=== PATIENT | female | born 1960 | race Caucasian/White ===

== ENCOUNTER 2021-11-26 18:48 | Emergency (ER) | payer MEDICARE, SELFPAY ==
--- NOTE | ~2021-11-26 | XR_ITS ---
EXAMINATION: XR CHEST CLINICAL INFORMATION: Chest pain COMPARISON: 11/26/2021 TECHNIQUE: Frontal view of the chest was obtained. FINDINGS: The lungs are clear with no focal consolidation. No evidence of pneumothorax, pulmonary edema, or pleural effusions. The cardiomediastinal silhouette is unremarkable. No acute osseous findings. XR/XR chest 1V IMPRESSION: No acute cardiopulmonary findings.
--- NOTE | ~2021-11-26 | XR_ITS ---
EXAMINATION: XR CHEST CLINICAL INFORMATION: Weakness. Cough. COMPARISON: Chest x-ray 07/22/2017 TECHNIQUE: Frontal view of the chest was obtained. 8:57 PM FINDINGS: No significant abnormality is noted involving the heart, lungs, mediastinum, bony thorax or soft tissues. XR/XR chest 1V IMPRESSION: Unremarkable examination.
[2021-11-26 19:43] VITALS: BP 114/70; PULSE 114; RESP 18; TEMP 36.5; O2SAT 95; BMI 17.2
[2021-11-26 20:15] LABS: COVID-19 Test Negative (Negative); IDNOW Serial# 9DD0AD1C
--- NOTE | 2021-11-26 20:37 | ECG_ITS ---
Test Reason : ABDOMINAL PAIN Blood Pressure : / mmHG Vent. Rate : 092 BPM Atrial Rate : 092 BPM P-R Int : 148 ms QRS Dur : 130 ms QT Int : 448 ms P-R-T Axes : 087 -74 169 degrees QTc Int : 554 ms Sinus rhythm with sinus arrhythmia with occasional Premature ventricular complexes Biatrial enlargement Left axis deviation Left bundle branch block Deep T wave inversions anterolateral leads-consider ischemia Abnormal ECG When compared with ECG of 23-JUL-2017 07:48, anteroseptal T wave inversions improved. T wave inversion more evident in Lateral leads Referred By: Generic ED Physician Electronically Signed By:Juan Richardson
[2021-11-26 21:45] LABS: MANUAL DIFF FLAG NO
[2021-11-26 21:47] LABS: Basophils Percent Auto 0.3 % (0-2); Eosinophils Percent Auto 0.1 % (0-4); Hematocrit 49.4 % (37.0-47.0); Imm Gran Abs Auto 0.03 X10*3/uL (0.00-0.03); Imm Gran Pct Auto 0.3 % (0.0-0.4); Lymphocytes Absolute Auto 2.1 X10*3/uL (1.2-4.9); Lymphocytes Percent Auto 17.9 % (20-40); Mean Corpuscular HGB Conc 34.4 g/dl (31.0-35.0); Mean Corpuscular Hemoglobin 31.7 pg (27.0-33.0); Mean Platelet Volume 11.6 fL (9.4-12.3); Monocytes Absolute Auto 0.8 X10*3/uL (0.1-1.2); Monocytes Percent Auto 6.8 % (2-11); Neutrophils Absolute Auto 8.7 x10*3/uL (2.0-8.3); Neutrophils Percent Auto 74.6 % (45-73); Platelet Count 228 X10*3/uL (160-400); Red Blood Count 5.37 X10*6/uL (4.20-5.50); Red Cell Distribution Width 12.9 % (11.0-16.0); White Blood Count 11.7 X10*3/uL (4.8-10.8)
[2021-11-26 22:02] LABS: Anion Gap 12 (12-20); Blood Urea Nitrogen 11 mg/dL (9-16); Carbon Dioxide 30 mmol/L (22-29); Chloride 102 mmol/L (96-108); Creatinine Clr Calc Pharmacy 40.4; Estimated Glomerular Filt Rate 55; Glucose Random 124 mg/dL (60-115); Potassium 4.2 mmol/L (3.3-5.1); Sodium 140 mmol/L (135-145)
[2021-11-26 22:16] LABS: Troponin-I High Sensitivity 697.3 ng/L (<3.5-17.0)
[2021-11-26 22:59] VITALS: BP 148/79; PULSE 101; RESP 20; O2SAT 100
[2021-11-26 23:01] VITALS: TEMP 36.7
[2021-11-26] MEDS: Aspirin 81 MG TAB.CHEW 324 MG PO (23:27)
[2021-11-26] MEDS: Nitroglycerin 0.4 MG TAB.SUBL SUBLINGUAL (23:27)
[2021-11-26 23:32] LABS: Alanine Aminotransferase 28 U/L (0-31); Albumin Level 4.7 g/dL (3.5-5.0); Alkaline Phosphatase 64 U/L (39-117); Aspartate Amino Transferase 37 U/L (5-31); Bilirubin Direct 0.4 mg/dL (0.0-0.5); Lipase 20 U/L (8-78); Total Protein 8.5 g/dL (6.5-8.0)
[2021-11-26] MEDS: 0.9 % Sodium Chloride 1,000 ML 125 ML IV (23:36)
[2021-11-26] MEDS: ondansetron HCL 4 MG/2 ML VIAL IVPUSH (23:36)
--- NOTE | 2021-11-26 23:46 | ED.ABDPAIN ---
HPI - Abdominal Pain General Chief Complaint: Abdominal Pain Stated Complaint: fever, body aches Time Seen by Provider: 11/26/21 22:46 Source: patient Mode of arrival: ambulatory Limitations: no limitations History of Present Illness HPI narrative: 61-year-old female who presents emergency department for evaluation of abdominal pain x2 days and upper respiratory like symptoms for 4 days. She states that for the past 4 days she has had a nonproductive cough and a runny nose. She states she has been blowing her nose frequently. She states that over the past 2 days she has had a constant epigastric abdominal pain which she describes as someone punching her in the got. She states the pain was 7/10 at its worst. She had no associated nausea, vomiting, shortness of breath. She denied any pain radiating to her back her down her arms. 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 She states she did have associated diaphoresis and had sweats on and off at night. The patient denied using any drugs such as crack or cocaine.The patient states that she may have a history of COPD but she is not certain. She denied diabetes, hypertension, hyperlipidemia, coronary disease or ulcers, GI bleed or GERD. Related Data Allergies Allergy/AdvReac Type Severity Reaction Status Date / Time Sulfa (Sulfonamide Allergy Intermediate SWELLING Unverified 08/14/20 16:00 Antibiotics) metronidazole [Flagyl] Allergy Unknown Verified 03/20/18 00:00 From FLAGYL Allergy Unknown SWELLING Uncoded 08/14/20 16:00 Review of Systems Review of Systems Yes all other systems are reviewed and are negative Physical Exam Vital Signs: Vital Signs: Last Vital Signs Temp 98.0 F 11/26/21 23:01 Pulse 78 11/27/21 00:58 Resp 13 11/27/21 00:00 BP 137/78 11/27/21 00:58 Pulse Ox 100 11/27/21 00:00 BMI result Body Mass Index 17.2 Const: Other: Awake, alert, female patient, she is very thin, she appears to be in distress secondary to her abdominal pain. HENMT: Head: Yes normal to inspection, Yes normocephalic and Yes atraumatic Ears: external ears normal General nose exam: Normal external nose present Face and sinus: Yes normal facial exam Mouth: Normal oral and palatal mucosa present Throat: Yes posterior oropharynx normal Eyes: General: appearance normal, both eyes and all related structures Pupils: Equal, round and reactive pupils present Neck: Neck: Yes normal visual inspection, Yes no lymphadenopathy, Yes trachea midline and Yes supple Chest: Chest palpation & inspection: normal inspection of the chest and normal palpation of entire chest wall Resp: Effort & Inspection: normal respiratory effort and able to speak in complete sentences Auscultation: clear to auscultation bilaterally Cardio: Rate: regular rate Rhythm: regular rhythm Heart sounds: S1 normal heart sound present, S2 normal heart sound present and no murmurs GI: Inspection: Yes normal to inspection Palpation (GI): Soft to palpation, Tenderness to palpation present (GI) in the epigastrum (Moderate) and no guarding Auscultation: normal bowel sounds : General: Yes no CVA tenderness Back/Spine/Pelvis: Back: no CVA tenderness Skin: General skin exam: no rashes or lesions noted Neuro: Cranial nerves: Yes CN's II-XII intact bilaterally and Yes Equal, round and reactive pupils present Cognition (Neuro): normal cognition Motor exam (neuro): 5/5 motor strength present throughout Extrem: General: Yes normal to inspection Psych: Appearance: grossly normal Speech and movement: Normal speech and movement present Affect: normal affect Attitude: cooperative Thought process: Normal thought process present Thought content: Normal thought content present Course Course Course Narrative: 61-year-old female who presents emergency department for evaluation of upper respiratory like illness x4 days with constant, epigastric pain x2 days associated with diaphoresis and night sweats. Initial vital signs revealed tachycardia with a pulse of 114 otherwise were unremarkable. Physical examination did reveal epigastric tenderness otherwise was unremarkable. Laboratory evaluation: [place] [address], elevated H&H of 17 and 49.4, glucose was elevated 124, AST was elevated 37, initial high sensitivity troponin I at 9:37 p.m. was 697.3. chest x-ray revealed no acute abnormality. The patient's presentation is atypical for coronary artery disease however she does have an elevated Troponin and was having constant epigastric pain. She was given aspirin 324 mg orally and nitroglycerin 1 tablet sublingually with significant improvement of her pain. She states that her pain is now 1/10. She was ordered to get nitro paste 1 in to her chest wall and she will have a repeat troponin at 12:30 a.m. 0148: Patient states she is feeling better with the above treatment. Her pain is 3/10. Patient still has [id number] epigastric tenderness. The patient's repeat 3 hour high sensitivity troponin was 543. This did not increased by adult of 50% suggesting that she has a chronically elevated troponin. The patient was ordered to get Maalox 30 cc orally, viscous lidocaine 10 cc orally and 10 cc orally. The patient will be started on Prilosec 20 mg once a day for 1 month. She was given printed and verbal instructions on gastritis and discharged home. MDM - Abdominal Pain Lab Data Result diagrams: 11/26/21 21:37 11/26/21 21:37 Labs: Lab Results 11/26/21 11/26/21 11/26/21 Range/Units 19:53 21:37 21:37 WBC 11.7 H (4.8-10.8) X10*3/uL RBC 5.37 (4.20-5.50) X10*6/uL Hgb 17.0 H (12.0-16.0) g/dl Hct 49.4 H (37.0-47.0) % MCV 92.0 (80.0-98.0) fL MCH 31.7 (27.0-33.0) pg MCHC 34.4 (31.0-35.0) g/dl RDW 12.9 (11.0-16.0) % Plt Count 228 (160-400) X10*3/uL MPV 11.6 (9.4-12.3) fL Immature Gran % (Auto) 0.3 (0.0-0.4) % Neut % (Auto) 74.6 H (45-73) % Lymph % (Auto) 17.9 L (20-40) % [place] % (Auto) 6.8 (2-11) % Eos % (Auto) 0.1 (0-4) % Baso % (Auto) 0.3 (0-2) % Lymph # (Auto) 2.1 (1.2-4.9) X10*3/uL [place] # (Auto) 0.8 (0.1-1.2) X10*3/uL Eos # (Auto) 0.0 (0.0-0.4) X10*3/uL Baso # (Auto) 0.0 (0.0-0.2) X10*3/uL Abs Immat Gran (auto) 0.03 (0.00-0.03) X10*3/uL Absolute Neuts (auto) 8.7 H (2.0-8.3) x10*3/uL Absolute Nucleated RBC 0.000 (0.0-0.012) X10*3/uL Nucleated RBC % (auto) 0.0 (0.0-0.2) /100WBC Sodium 140 (135-145) mmol/L Potassium 4.2 (3.3-5.1) mmol/L Chloride 102 (96-108) mmol/L Carbon Dioxide 30 H (22-29) mmol/L Anion Gap 12 (12-20) BUN 11 (9-16) mg/dL Creatinine 1.02 (0.5-1.4) mg/dL Estim Creat Clear Calc 40.4 Estimated GFR 55 Random Glucose 124 H (60-115) mg/dL Calcium 10.0 (8.4-10.2) mg/dL Total Bilirubin 1.0 (0.0-1.0) mg/dL Direct Bilirubin 0.4 (0.0-0.5) mg/dL AST 37 H (5-31) U/L ALT 28 (0-31) U/L Alkaline Phosphatase 64 (39-117) U/L Troponin I High Sens (<3.5-17.0) ng/L Total Protein 8.5 H (6.5-8.0) g/dL Albumin 4.7 (3.5-5.0) g/dL Lipase 20 (8-78) U/L COVID-19 (KARIE) Negative (Negative) COVID-19 Clin Com See Note 11/26/21 11/26/21 11/27/21 Range/Units 21:37 22:58 00:37 WBC (4.8-10.8) X10*3/uL RBC (4.20-5.50) X10*6/uL Hgb (12.0-16.0) g/dl Hct (37.0-47.0) % MCV (80.0-98.0) fL MCH (27.0-33.0) pg MCHC (31.0-35.0) g/dl RDW (11.0-16.0) % Plt Count (160-400) X10*3/uL MPV (9.4-12.3) fL Immature Gran % (Auto) (0.0-0.4) % Neut % (Auto) (45-73) % Lymph % (Auto) (20-40) % [place] % (Auto) (2-11) % Eos % (Auto) (0-4) % Baso % (Auto) (0-2) % Lymph # (Auto) (1.2-4.9) X10*3/uL [place] # (Auto) (0.1-1.2) X10*3/uL Eos # (Auto) (0.0-0.4) X10*3/uL Baso # (Auto) (0.0-0.2) X10*3/uL Abs Immat Gran (auto) (0.00-0.03) X10*3/uL Absolute Neuts (auto) (2.0-8.3) x10*3/uL Absolute Nucleated RBC (0.0-0.012) X10*3/uL Nucleated RBC % (auto) (0.0-0.2) /100WBC Sodium (135-145) mmol/L Potassium (3.3-5.1) mmol/L Chloride (96-108) mmol/L Carbon Dioxide (22-29) mmol/L Anion Gap (12-20) BUN (9-16) mg/dL Creatinine (0.5-1.4) mg/dL Estim Creat Clear Calc Estimated GFR Random Glucose (60-115) mg/dL Calcium (8.4-10.2) mg/dL Total Bilirubin (0.0-1.0) mg/dL Direct Bilirubin (0.0-0.5) mg/dL AST (5-31) U/L ALT (0-31) U/L Alkaline Phosphatase (39-117) U/L Troponin I High Sens 697.3 H* 543.8 H* (<3.5-17.0) ng/L Total Protein (6.5-8.0) g/dL Albumin (3.5-5.0) g/dL Lipase (8-78) U/L COVID-19 (KARIE) Negative (Negative) COVID-19 Clin Com See Note ECG Data Attestation: I personally reviewed and interpreted this ECG as follows: Interpretation: 2244: Sinus rhythm with sinus arrhythmia, occasional PVC, normal [place] interval, prolonged QRS and QTC interval, the patient has a left bundle branch block. Discharge Plan Discharge Clinical Impression: Gastritis Patient Disposition: Home, Self-Care Instructions: Gastritis (ED) Additional Instructions: At this time, I believe that your pain is due to inflammation of your stomach (gastritis) most likely caused by too much acid in your stomach. I am prescribing Prilosec (omeprazole) 20 mg pills, take 1 pill once a day for 1 month. This is a medicine that shuts off your acid production and a larger stomach heal. Take Tylenol (acetaminophen) 500 mg pills, 2 pills every 4 to 6 hours as needed for pain. Follow-up with your doctor in 2 days. Please return to the emergency department if your symptoms get worse or if you develop any symptoms that are concerning to you. [facility] Past Medical History [facility] Narrative: Past medical history: None. Social history: The patient smokes 1 pack of cigarettes per day times many years. She denies alcohol use. She denies crack cocaine or cocaine use. She does smoke marijuana. Social History Social History Alcohol intake: never Patient Tobacco Use Status: Current everyday Tobacco user Use of substances other than those prescribed or required for medical reasons: Yes Substance Use Type: Marijuana Advance Directives: No Advance Directives Information Provided: No Patient : No
[2021-11-26 23:58] LABS: COVID-19 Test Negative (Negative)
[2021-11-27] VITALS: BP 137/78; PULSE 78; RESP 13; O2SAT 100
[2021-11-27 00:58] VITALS: BP 137/78; PULSE 78
[2021-11-27] MEDS: Nitroglycerin 2 % Oint 1 GM Packet 1 INCH TRANSDERMA (00:58)
[2021-11-27 01:11] LABS: Troponin-I High Sensitivity 543.8 ng/L (<3.5-17.0)
--- NOTE | 2021-11-27 01:35 | PC.NURSE ---
PTS ' CONTINUES TO CALL AND [facility] STAFF, ON THE LAST PHONE CALL WHEN IT WAS STATED PT WAS ASLEEP AND THERE WAS NO FURTHER INFORMATION TO BE GIVEN AT THIS TIME. [employer] SATED TO THIS RN YOU MOTHERFUCKERS CAN SUCK MY OLE THIS RN WAS FORCED TO END THE CALL D/T THE MAN PERSISTENTLY YELLING, SWEARING, SLURRING HIS WORDS AND UNABLE TO HOLD A CONVERSATION AT THIS TIME
[2021-11-27] MEDS: Lidocaine HCl Viscous 2 % 15 ML SOLUTION 10 ML PO (02:03)
[2021-11-27] MEDS: PHENobarb/Hyoscy/Atropine/Scop 10 ML ELIXIR PO (02:03)
[2021-11-27] MEDS: Magnesium Hydrox/Alum Hydrox 30 ML ORAL.SUSP PO (02:03)
[2021-11-27 03:11] LABS: Appearance Urine CLEAR; Color Urine YELLOW; Glucose Urine UA NEG (NEG); Leukocyte Esterase Urine NEG (NEG); Nitrite Urine NEG (NEG); Specific Gravity - Urine 1.015 (1.005-1.025); UACC Culture Trigger NO; Urine Blood NEG (NEG); Urine Ketones 15 MG/DL (NEG); Urine Protein 1+ MG/DL (NEG-TRACE)
[2021-11-27 03:20] LABS: Hyaline Casts Urine 0-2 /LPF; Mucus Urine 2+ /LPF; Renal Epithelial Cells Urine TRACE /LPF; Squamous Epithelial Cell Urine 1+ /LPF
== END 2021-11-27 04:03 | disposition home or self-care (01) ==
PROVIDERS: Emergency Provider Emergency Medicine Emergency Medical Services
DX: K29.70 Gastritis, unspecified, without bleeding (principal); R10.9 Unspecified abdominal pain; R50.9 Fever, unspecified; M79.10 Myalgia, unspecified site; Z20.822 Contact with and (suspected) exposure to COVID-19; Z79.899 Other long term (current) drug therapy
CPT/HCPCS: 36415; 71045; 80048; 80076; 81001; 83690; 84484; 85025; 87635; 93005; 96361; 96374; 99285; J2405

== ENCOUNTER 2022-06-11 16:21 | Inpatient (IN) | payer MEDICARE, SELFPAY ==
--- NOTE | ~2022-06-11 | CT_ITS ---
EXAMINATION: NONCONTRAST HEAD CT NONCONTRAST MAXILLOFACIAL CT NONCONTRAST CERVICAL SPINE CT INDICATION INFORMATION: Fall with head strike and neck pain. COMPARISON:, CT cervical spine 07/05/[address] 09/26/2018 TECHNIQUE: Separate noncontrast CT examinations of the head, maxillofacial bones, and cervical spine were performed. Coronal and sagittal images were created for each examination at the technologist workstation. This CT examination was performed using dose optimization techniques as appropriate, variously including the following: *Automated exposure control *Adjustment of mA and/or kV according to patient size (this includes techniques or standardized protocols for targeted exams where dose is matched to indication/reason for exam; i.e. extremities or head) *Use of iterative reconstruction technique DLP: 1248 mGy-cm FINDINGS: HEAD: No intra or extra-axial fluid collection, hemorrhage, or mass. No midline shift or herniation. Basal cisterns are patent. Parra-white matter differentiation is maintained. No territorial encephalomalacia.. No hydrocephalus. No significant volume loss. There is no abnormal attenuation within the brain parenchyma. No acute soft tissue abnormality. No calvarial fracture. The mastoid air cells are well aerated. MAXILLOFACIAL: No acute facial bone fractures are seen. Minimal lobulated mucosal thickening of the floor the left maxillary antrum. Paranasal sinuses otherwise normally aerated. The mandibular heads are normally positioned in the glenoid fossa. Mild left TMJ osteoarthritis. The orbits demonstrate a normal appearance bilaterally. The globes are intact. No evidence of retrobulbar hemorrhage. CERVICAL SPINE: Alignment:Slight reversal of the normal cervical lordosis. No subluxation. Vertebra:No acute fracture. No prevertebral soft tissue swelling. Degenerative disc disease:Moderate cervical spondylosis at C5-C6 and C6-C7. Other findings:No cervical lymphadenopathy. Visualized thyroid gland is unremarkable. Visualized lung apices are clear. Prior resection of the left first rib. CT/CT cervical spine wo con IMPRESSION: 1. No intracranial hemorrhage or calvarial fracture. 2. No acute facial bone fracture. 3. No traumatic subluxation or acute cervical spine fracture.
--- NOTE | ~2022-06-11 | XR_ITS ---
EXAMINATION: XR hand wrist LT CLINICAL INFORMATION: Reason for Exam Fall, Pain COMPARISON: Left wrist radiographs 06/24/2010 TECHNIQUE: 3 views left hand FINDINGS: Assessment is slightly limited due to positioning and resultant osseous overlap. No acute fracture or dislocation is identified. Joint spaces are maintained. Mild osteophyte formation/degenerative change at the second DIP joint. XR/XR hand wrist LT IMPRESSION: No acute fracture or dislocation allowing for limitation, as above.
--- NOTE | ~2022-06-11 | XR_ITS ---
EXAMINATION: XR FOREARM, LEFT CLINICAL INFORMATION: Fall COMPARISON: None TECHNIQUE: AP and lateral views of the left forearm were obtained. FINDINGS: The bones and soft tissues are normal. No fracture. Imaged portions of the elbow and wrist are unremarkable. XR/XR forearm LT 2V IMPRESSION: No fracture.
--- NOTE | ~2022-06-11 | CT_ITS ---
EXAMINATION: CT CHEST, ABDOMEN AND PELVIS WITH CONTRAST CT THORACIC AND LUMBAR SPINE WITHOUT CONTRAST (REFORMATS) CLINICAL INFORMATION: Reason for Exam Trauma, Fall . COMPARISON: No pertinent prior studies are available for comparison TECHNIQUE: Multidetector volumetric imaging was performed from the thoracic inlet through the pubic symphysis following the administration of: Oral contrast: No Intravenous contrast: 85 mL Omnipaque 350 No contrast reaction reported Sagittal and coronal reformatted images were obtained on the technologist workstation. This CT examination was performed using dose optimization techniques as appropriate, variously including the following: *Automated exposure control *Adjustment of mA and/or kV according to patient size (this includes techniques or standardized protocols for targeted exams where dose is matched to indication/reason for exam; i.e. extremities or head) *Use of iterative reconstruction technique DLP: 613 mGy-cm FINDINGS: CHEST: Lungs: Extensive respiratory motion artifact. No airspace consolidation. No pneumothorax. No appreciable pulmonary nodule or mass identified. Airways: Central airways are clear. Pleura and pericardium: No pleural or pericardial effusions. Heart and vascular structures: No cardiomegaly. No thoracic aortic aneurysm or dissection flap. Normal caliber central pulmonary trunk. Lymph nodes:No mediastinal, hilar, or axillary lymphadenopathy. Chest Wall: No chest wall mass. ABDOMEN/PELVIS: Assessment limited by motion artifact. Liver: Normal size and attenuation. No liver lesions. No liver laceration or subcapsular hematoma. Gallbladder and bile ducts: No calcified gallstones, mural thickening, or pericholecystic fluid/inflammatory change allowing for motion artifact. No biliary ductal dilation. Pancreas: No pancreatic lesion, ductal dilation, or peripancreatic inflammatory change. Spleen: Normal size. No splenic lesion. No splenic laceration or subcapsular hematoma allowing for motion. Adrenal Glands: Unremarkable. No adrenal nodule or hemorrhage. Kidneys and Ureters: Symmetric nephrograms. No hydronephrosis. No renal laceration or subcapsular hematoma. No renal cyst or mass identified. Vasculature:No abdominal aortic aneurysm. No aortic dissection flap. Moderate mixed calcified noncalcified plaque in the lower abdominal aorta. Lymph nodes:No retroperitoneal or mesenteric lymphadenopathy. Gastrointestinal Tract: No dilated bowel loops or bowel wall thickening. Peritoneum:Trace low-density free pelvic fluid. No intra-abdominal free air. Abdominal wall:No hernia. Bladder: Unremarkable. Pelvic Viscera: Status post hysterectomy. Bones: No acute fracture identified allowing for motion artifact. This degenerative changes in the spine most advanced at L5-S1 and within the lower cervical spine. CT/CT abdomen pelvis w con IMPRESSION: 1. Exam limited by patient motion artifact. Allowing for this limitation. No appreciable acute intrathoracic injury. No acute solid visceral injury. No intra-abdominal free air. 2. Trace low-density free pelvic fluid, likely physiologic. 3. No acute fracture identified.
--- NOTE | ~2022-06-11 | US_ITS ---
EXAMINATION: ULTRASOUND ARTERIAL DUPLEX BILATERAL UPPER EXTREMITY CLINICAL INFORMATION: Pain COMPARISON: None TECHNIQUE: Doppler, color and grayscale evaluation of the arteries of the bilateral upper extremities FINDINGS: There is no evidence of atherosclerotic disease. No vessel wall thickening or irregularity suggest vasculitis is seen. No filling defect, thrombus or visible stenosis is appreciated. Peak systolic velocities in the common subclavian axillary brachial and ulnar and radial arteries are normal throughout the bilateral upper extremities. Waveforms are normal with triphasic waveforms. There is an arrhythmia. US/US arterial duplex UE BI IMPRESSION: Arrhythmia otherwise normal arterial extremity ultrasound exam.
[2022-06-11 16:29] VITALS: BP 200/90; PULSE 44; PULSE 97; RESP 22; TEMP 36.6; O2SAT 97; O2SAT 99; BMI 15.9
--- NOTE | 2022-06-11 16:29 | ECG_ITS ---
Test Reason : FALL Blood Pressure : / mmHG Vent. Rate : 083 BPM Atrial Rate : 040 BPM P-R Int : 160 ms QRS Dur : 098 ms QT Int : 406 ms P-R-T Axes : 084 072 -81 degrees QTc Int : 477 ms Normal sinus rhythm with frequent Premature ventricular complexes in a pattern of bigeminy Left bundle branch block Abnormal ECG When compared with ECG of 26-NOV-2021 22:44, PVC with bigeminal pattern present Referred By: Rachel Blanco Electronically Signed By:CRUZ SOLANO MD
--- NOTE | 2022-06-11 16:36 | ED_ITS ---
HPI - Trauma General Chief Complaint: Fall Stated Complaint: FALL W/HEADSTRIKE AND HAND PAIN PER EMS Time Seen by Provider: 06/11/22 16:24 Source: patient Mode of arrival: EMS History of Present Illness HPI narrative: 62-year-old female brought in by EMS for a traumatic fall in an alley, patient states that she is having significant pain to bilateral hands. She denies any difficulty breathing, chest pain/palpitations, or pain elsewhere. She denies drinking any alcohol today states that she is on methadone and denies any IV injection drug use but does smoke marijuana. Related Data Previous Rx's Medication Instructions Recorded omeprazole 20 mg capsule,delayed 20 mg PO DAILY 30 days #30 caps 11/27/21 release Allergies Allergy/AdvReac Type Severity Reaction Status Date / Time Sulfa (Sulfonamide Allergy Intermediate SWELLING Unverified 08/14/20 16:00 Antibiotics) metronidazole [Flagyl] Allergy Unknown Verified 03/20/18 00:00 From FLAGYL Allergy Unknown SWELLING Uncoded 08/14/20 16:00 Review of Systems Review of Systems: Pertinent positives and negatives as stated in the HPI 10 point review of systems is otherwise negative. [facility] Past Medical History Source: nursing notes reviewed Social History Social History Alcohol intake: never Patient Tobacco Use Status: Current everyday Tobacco user Substance Use Type: Marijuana Advance Directives: No Advance Directives Information Provided: No Physical Exam Vital Signs: Vital Signs: Last Vital Signs Temp 97.9 F 06/11/22 16:29 Pulse 44 L 06/11/22 16:29 Resp 22 H 06/11/22 16:29 Pulse Ox 97 06/11/22 16:29 O2 Del Method 06/11/22 16:29 BMI result Body Mass Index 15.9 Blood Thinners: None PRIMARY SURVEY A: Airway intact B: Bilateral, symmetrical breath sounds C: Bilateral DP/PT/femoral/radial palpable pulses symmetrical, ABD soft/ non-distended, PELVIS: stable/non-tender BP: D: GCS-15, motor and sensory grossly intact, FAST not performed E: No back abrasions, no cervical/thoracic/lumbar vertebral tenderness/step-off, ALYSSA- not performed SECONDARY SURVEY HEAD: NC/AT no laceration/no contusions noted; EARS: no hemotympanum; EYES: 2mm PERRLA, EOMI NOSE: no deformity, wnl, no septal hematoma; OROPHARYNX: able to open mouth and tongue is midline without laceration, poor dentition FACE: with abrasion between her eyebrows, lacerations, contusions, or ttp NECK: c-collar, no cervical spine tenderness; CHEST WALL/THORAX: no clavicle deformity or ttp, no sternum or rib deformity, no crepitus and no ttp RUE: fROM at shoulder/elbow/wrist and neurovascular intact, no deformity, no abrasions/lacerations, cap refill <3s, patient complained of pain in her hands LUE: fROM at shoulder/elbow/wrist and neurovascular intact, no deformity, no abrasions/lacerations, cap refill <3s, patient complained of pain in her hands ABD: soft, non-tender, non-distended PELVIS: stable, non-tender : external genitalia grossly within normal limits RLE: fROM at hip/knee/ankle neurovascular intact LLE: fROM at hip/knee/ankle neurovascular intact ROS: 10 point review of systems has been completed. Please refer to HPI for pertinent negative and positives. A/P: 62-year-old female with history and clinical presentation consistent with traumatic fall - Labs (CBC, CMP, Troponin, PT/INR, PTT) - CT: head, c-spine, Thorax w/ contrast and T-spine recon, Abd/pelvis w/ contrast and L-spine recon - XR < bilateral forearm> - Type and Screen - Urinalysis, Urine Tox - Blood Alcohol - Tetanus - Consult <> Course Course Course Narrative: 1950: X-rays negative for acute fracture/dislocation. 2019: Review of CT scans are negative for acute pathology. Both of patient's wrist were wrapped with Sam wraps with patient endorsing that her hands feel better, pulses are palpable, hands are warm, capillary refill is less than 3 seconds. It does sound to be neuropathic pain. Concerns are raised for patient's bigeminy in conjunction with syncopal episode. I discussed the case with the inpatient hospitalist who accepts admission. Patient received Tdap. MDM - Trauma Lab Data Result diagrams: 06/11/22 16:43 06/11/22 16:43 Labs: Lab Results 06/11/22 06/11/22 06/11/22 Range/Units 16:43 16:43 16:43 WBC 10.3 (4.8-10.8) X10*3/uL RBC 4.32 (4.20-5.50) X10*6/uL Hgb 13.9 (12.0-16.0) g/dl Hct 38.9 D (37.0-47.0) % MCV 90.0 (80.0-98.0) fL MCH 32.2 (27.0-33.0) pg MCHC 35.7 H (31.0-35.0) g/dl RDW 12.9 (11.0-16.0) % Plt Count 212 (160-400) X10*3/uL MPV 11.2 (9.4-12.3) fL Immature Gran % (Auto) 0.2 (0.0-0.4) % Neut % (Auto) 48.5 (45-73) % Lymph % (Auto) 37.8 (20-40) % [place] % (Auto) 9.1 (2-11) % Eos % (Auto) 3.9 (0-4) % Baso % (Auto) 0.5 (0-2) % Lymph # (Auto) 3.9 (1.2-4.9) X10*3/uL [place] # (Auto) 0.9 (0.1-1.2) X10*3/uL Eos # (Auto) 0.4 (0.0-0.4) X10*3/uL Baso # (Auto) 0.1 (0.0-0.2) X10*3/uL Abs Immat Gran (auto) 0.02 (0.00-0.03) X10*3/uL Absolute Neuts (auto) 5.0 (2.0-8.3) x10*3/uL Absolute Nucleated RBC 0.000 (0.0-0.012) X10*3/uL Nucleated RBC % (auto) 0.0 (0.0-0.2) /100WBC PT 10.8 (10.0-13.1) SEC INR 0.9 (0.9-1.1) Sodium 130 L (135-145) mmol/L Potassium 4.0 (3.3-5.1) mmol/L Chloride 97 (96-108) mmol/L Carbon Dioxide 23 (22-29) mmol/L Anion Gap 14 (12-20) BUN 5 L D (9-16) mg/dL Creatinine 0.78 (0.5-1.4) mg/dL Estim Creat Clear Calc 48.3 Estimated GFR > 60 Random Glucose 126 H (60-115) mg/dL Calcium 8.8 D (8.4-10.2) mg/dL Total Bilirubin 0.6 (0.0-1.0) mg/dL AST 39 H (5-31) U/L ALT 30 (0-31) U/L Alkaline Phosphatase 57 (39-117) U/L Total Protein 7.1 (6.5-8.0) g/dL Albumin 4.4 (3.5-5.0) g/dL Ethyl Alcohol < 10 mg/dL ECG Data Attestation: I personally reviewed and interpreted this ECG as follows: Prior ECG tracings: available for review Interpretation: Bigeminy, HR-83, OR/QRS/QTC are within normal limits. Critical Care Time Critical Care Time Critical Care Time: Yes Total Critical Care Time: 30 Attestation: I personally attest to this time spent taking care of the patient. Discharge Plan Discharge Clinical Impression: Syncope, Trauma, History of thoracic outlet syndrome, Neuropathic pain Patient Disposition: Admitted As Inpatient
[2022-06-11] MEDS: fentaNYL citrate/PF 100 MCG/2 ML VIAL 25 MCG IVPUSH (16:46)
[2022-06-11 16:47] LABS: MANUAL DIFF FLAG NO
[2022-06-11] MEDS: hydrALAZINE HCl 20 MG/ML VIAL 5 MG IVPUSH (16:47)
[2022-06-11 16:51] LABS: Basophils Absolute Auto 0.1 X10*3/uL (0.0-0.2); Basophils Percent Auto 0.5 % (0-2); Eosinophils Absolute Auto 0.4 X10*3/uL (0.0-0.4); Eosinophils Percent Auto 3.9 % (0-4); Hematocrit 38.9 % (37.0-47.0); Hemoglobin 13.9 g/dl (12.0-16.0); Imm Gran Abs Auto 0.02 X10*3/uL (0.00-0.03); Imm Gran Pct Auto 0.2 % (0.0-0.4); Lymphocytes Absolute Auto 3.9 X10*3/uL (1.2-4.9); Lymphocytes Percent Auto 37.8 % (20-40); Mean Corpuscular HGB Conc 35.7 g/dl (31.0-35.0); Mean Corpuscular Hemoglobin 32.2 pg (27.0-33.0); Mean Platelet Volume 11.2 fL (9.4-12.3); Monocytes Absolute Auto 0.9 X10*3/uL (0.1-1.2); Monocytes Percent Auto 9.1 % (2-11); Neutrophils Percent Auto 48.5 % (45-73); Platelet Count 212 X10*3/uL (160-400); Red Blood Count 4.32 X10*6/uL (4.20-5.50); Red Cell Distribution Width 12.9 % (11.0-16.0); White Blood Count 10.3 X10*3/uL (4.8-10.8)
[2022-06-11 16:58] LABS: INTERNATIONAL NORM RATIO 0.9 (0.9-1.1); Prothrombin Time 10.8 SEC (10.0-13.1)
[2022-06-11 17:08] LABS: Alanine Aminotransferase 30 U/L (0-31); Albumin Level 4.4 g/dL (3.5-5.0); Alkaline Phosphatase 57 U/L (39-117); Anion Gap 14 (12-20); Aspartate Amino Transferase 39 U/L (5-31); Bilirubin Total 0.6 mg/dL (0.0-1.0); Blood Urea Nitrogen 5 mg/dL (9-16); Calcium 8.8 mg/dL (8.4-10.2); Carbon Dioxide 23 mmol/L (22-29); Chloride 97 mmol/L (96-108); Creatinine Clr Calc Pharmacy 48.3; Estimated Glomerular Filt Rate > 60; Ethanol < 10 mg/dL; Glucose Random 126 mg/dL (60-115); Sodium 130 mmol/L (135-145); Total Protein 7.1 g/dL (6.5-8.0)
[2022-06-11] MEDS: HYDROmorphone HCl 0.5 MG/0.5 ML SYRINGE IVPUSH (17:44)
[2022-06-11] MEDS: Magnesium Sulfate/H2O 2 GM/50 ML PIGGYBACK IV (17:44)
[2022-06-11] MEDS: iohexoL 350 MG/ML 100 ML INFUS..BTL IV (18:27)
[2022-06-11 20:48] LABS: Appearance Urine CLEAR; Color Urine STRAW; Glucose Urine UA NEG (NEG); Leukocyte Esterase Urine NEG (NEG); Nitrite Urine NEG (NEG); PH 6.5 (5.0-8.0); Specific Gravity - Urine <= 1.005 (1.005-1.025); UACC Culture Trigger NO; Urine Blood TRACE (NEG); Urine Ketones NEG (NEG); Urine Protein NEG (NEG-TRACE)
[2022-06-11 20:53] LABS: WBC Urine 0 /HPF (0-4)
[2022-06-11 20:58] LABS: Troponin-I High Sensitivity 4.7 ng/L (<3.5-17.0)
[2022-06-11 21:02] LABS: Amphetamine Screen Urine Not Detected (Not Detect); Barbiturates, Urine Not Detected (Not Detect); Benzodiazepines Screen Urine Not Detected (Not Detect); Cannabinoid Screen Urine POSITIVE (Not Detect); Cocaine Screen Urine Not Detected (Not Detect); Fentanyl, urine POSITIVE (Not Detect); Opiate Screen Urine POSITIVE (Not Detect); Phencyclidine Screen Urine Not Detected (Not Detect)
[2022-06-11 21:03] LABS: COVID-19 Test Negative (Negative); IDNOW Serial# 55D5AD1C
--- NOTE | 2022-06-11 21:03 | PHA.MEDREC ---
Pharmacy Consult ? Medication Reconciliation Pharmacy has completed the medication reconciliation.
[2022-06-11] MEDS: Diphth,Pertus(ACell),Tet Adult 0.5 ML SYRINGE IM (21:13)
[2022-06-11] MEDS: oxyCODONE HCl Immed Release 5 MG TABLET PO (21:13)
--- NOTE | 2022-06-11 22:27 | P.HPHOSP_ITS ---
History of Present Illness Date of Service: 06/11/22 Chief Complaint: syncope 62-year-old female with past medical history of opioid use disorder on methadone presents to the hospital after a fall. Patient reports that she tripped on a rock and fell face forward hitting her head. She does report that she loss co nsciousness but is unclear if she lost consciousness before falling or after falling. She reports that she now has severe unbearable pain in her hands bilaterally. She denies injecting any type of drugs in her hands, she reports severe shooting burning pain that is intermittent in her hands bilaterally. She feels that her hands skin is being scraped off. She denies any fever no chills, no chest pain, no abdominal pain, no nausea or vomiting, no palpitations, no shortness of breath. No urinary symptoms and no lower extremity edema. On arrival to the ED patient hemodynamically stable no significant abnormal vitals Labs are significant for WBC count of 10.3, hemoglobin of 13.9, hematocrit of 38.9, sodium of 130, labs otherwise unremarkable, UDS is positive for opioids as well as fentanyl and marijuana Although some of the images do have motion artifact but imaging including head C T, abdominal pelvic CT, chest CT, face CT, cervical spine CT, as well as hand wrist x-ray and forearm x-ray are negative for any acute abnormality. Patient is in extreme excruciating pain bilateral hands not responding to p.o. pain meds, therefore she will be admitted for further management. Review of Systems Review of Systems: Yes all other systems are reviewed and are negative [facility] Medical History History of thoracic outlet syndrome Trigeminal neuralgia Family History (Updated 06/12/22 @ 00:10 by Zeus Lua MD) Other No family history of coronary artery disease Surgical History History of hysterectomy Social History Alcohol intake: never Patient Tobacco Use Status: Current everyday Tobacco user Substance Use Type: Marijuana Advance Directives: No Advance Directives Information Provided: No Meds Allergies Allergy/AdvReac Type Severity Reaction Status Date / Time Sulfa (Sulfonamide Allergy Intermediate SWELLING Unverified 08/14/20 16:00 Antibiotics) metronidazole [Flagyl] Allergy Unknown Verified 03/20/18 00:00 From FLAGYL Allergy Unknown SWELLING Uncoded 08/14/20 16:00 Active Medications: Current Medications Pharmacy Consult (Consult Rx Perform Med Rec) 1 each MISCELLANE ONCE PRN PRN Reason: Consult order Home Medications Medication Instructions Recorded Confirmed Last Taken Type methadone 10 mg/mL oral 65 mg PO DAILY 06/11/22 06/11/22 06/11/22 History concentrate (Methadone Intensol) Physical Exam Vital Signs and Narrative: Vital Signs: Last Vital Signs Temp 97.9 F 06/11/22 16:29 Pulse 44 L 06/11/22 16:29 Resp 22 H 06/11/22 16:29 Pulse Ox 97 06/11/22 16:29 O2 Del Method 06/11/22 16:29 BMI result Body Mass Index 15.9 Const: General: cooperative and no acute distress Orientation/consciousness: patient oriented x3 Eyes: General: appearance normal, both eyes and all related structures Resp: Effort & Inspection: normal respiratory effort Auscultation: clear to auscultation bilaterally Cardio: Rate: regular rate Rhythm: regular rhythm GI: Palpation (GI): Soft to palpation Auscultation: normal bowel sounds Skin: General skin exam: no rashes or lesions noted Neuro: General: patient oriented x3 Cognition (Neuro): normal cognition Extrem: Other: For both hands examined, appear normal in appearance, no erythema, no edema, no warmth, patient wound even let me touch thumb without screaming in pain, she is holding them out now moving them as she says that even moving them causes her severe pain. General: Yes normal to inspection and Yes no pedal edema Results Labs CBC and Chem 7: 06/11/22 16:43 06/11/22 16:43 Labs: Laboratory Results - last 24 hr 06/11/22 06/11/22 06/11/22 16:43 16:43 16:43 MCV 90.0 MCH 32.2 MCHC 35.7 H RDW 12.9 Plt Count 212 MPV 11.2 Immature Gran % (Auto) 0.2 Neut % (Auto) 48.5 Lymph % (Auto) 37.8 [place] % (Auto) 9.1 Eos % (Auto) 3.9 Baso % (Auto) 0.5 Lymph # (Auto) 3.9 [place] # (Auto) 0.9 Eos # (Auto) 0.4 Baso # (Auto) 0.1 Abs Immat Gran (auto) 0.02 Absolute Neuts (auto) 5.0 Absolute Nucleated RBC 0.000 Nucleated RBC % (auto) 0.0 PT 10.8 INR 0.9 Anion Gap 14 Estim Creat Clear Calc 48.3 Estimated GFR > 60 Random Glucose 126 H Calcium 8.8 D Total Bilirubin 0.6 AST 39 H ALT 30 Alkaline Phosphatase 57 Troponin I High Sens Total Protein 7.1 Albumin 4.4 Urine Color Urine Appearance Urine pH Ur Specific [place] Urine Protein Urine Glucose (UA) Urine Ketones Urine Blood Urine Nitrite Ur Leukocyte Esterase Urine RBC Urine WBC Ur Squamous Epith Cells Urine Bacteria Urine Opiates Screen Urine Fentanyl Screen Ur Barbiturates Screen Ur Phencyclidine Scrn Ur Amphetamines Screen U Benzodiazepines Scrn Urine Cocaine Screen U Marijuana (THC) Screen Ethyl Alcohol < 10 COVID-19 (KARIE) COVID-19 [employer] Com 06/11/22 06/11/22 06/11/22 16:43 20:37 20:39 MCV MCH MCHC RDW Plt Count MPV Immature Gran % (Auto) Neut % (Auto) Lymph % (Auto) [place] % (Auto) Eos % (Auto) Baso % (Auto) Lymph # (Auto) [place] # (Auto) Eos # (Auto) Baso # (Auto) Abs Immat Gran (auto) Absolute Neuts (auto) Absolute Nucleated RBC Nucleated RBC % (auto) PT INR Anion Gap Estim Creat Clear Calc Estimated GFR Random Glucose Calcium Total Bilirubin AST ALT Alkaline Phosphatase Troponin I High Sens 4.7 D Total Protein Albumin Urine Color STRAW Urine Appearance CLEAR Urine pH 6.5 Ur Specific [place] <= 1.005 Urine Protein NEG Urine Glucose (UA) NEG Urine Ketones NEG Urine Blood TRACE Urine Nitrite NEG Ur Leukocyte Esterase NEG Urine RBC 1-4 Urine WBC 0 Ur Squamous Epith Cells NONE Urine Bacteria NONE Urine Opiates Screen Urine Fentanyl Screen Ur Barbiturates Screen Ur Phencyclidine Scrn Ur Amphetamines Screen U Benzodiazepines Scrn Urine Cocaine Screen U Marijuana (THC) Screen Ethyl Alcohol COVID-19 (KARIE) Negative COVID-19 [employer] See Note 06/11/22 20:39 MCV MCH MCHC RDW Plt Count MPV Immature Gran % (Auto) Neut % (Auto) Lymph % (Auto) [place] % (Auto) Eos % (Auto) Baso % (Auto) Lymph # (Auto) [place] # (Auto) Eos # (Auto) Baso # (Auto) Abs Immat Gran (auto) Absolute Neuts (auto) Absolute Nucleated RBC Nucleated RBC % (auto) PT INR Anion Gap Estim Creat Clear Calc Estimated GFR Random Glucose Calcium Total Bilirubin AST ALT Alkaline Phosphatase Troponin I High Sens Total Protein Albumin Urine Color Urine Appearance Urine pH Ur Specific [place] Urine Protein Urine Glucose (UA) Urine Ketones Urine Blood Urine Nitrite Ur Leukocyte Esterase Urine RBC Urine WBC Ur Squamous Epith Cells Urine Bacteria Urine Opiates Screen POSITIVE H Urine Fentanyl Screen POSITIVE H Ur Barbiturates Screen Not Detected Ur Phencyclidine Scrn Not Detected Ur Amphetamines Screen Not Detected U Benzodiazepines Scrn Not Detected Urine Cocaine Screen Not Detected U Marijuana (THC) Screen POSITIVE H Ethyl Alcohol COVID-19 (KARIE) COVID-19 Clin Com Imaging Radiologist's Impressions: Impressions Forearm X-Ray 06/11/22 18:40 IMPRESSION: No fracture. Hand/Wrist X-Ray 06/11/22 18:40 IMPRESSION: No acute fracture or dislocation allowing for limitation, as above. Cervical Spine CT 06/11/22 18:43 IMPRESSION: 1. No intracranial hemorrhage or calvarial fracture. 2. No acute facial bone fracture. 3. No traumatic subluxation or acute cervical spine fracture. Face CT 06/11/22 18:43 IMPRESSION: 1. No intracranial hemorrhage or calvarial fracture. 2. No acute facial bone fracture. 3. No traumatic subluxation or acute cervical spine fracture. Head CT 06/11/22 18:43 IMPRESSION: 1. No intracranial hemorrhage or calvarial fracture. 2. No acute facial bone fracture. 3. No traumatic subluxation or acute cervical spine fracture. Abdomen/Pelvis CT 06/11/22 18:44 IMPRESSION: 1. Exam limited by patient motion artifact. Allowing for this limitation. No appreciable acute intrathoracic injury. No acute solid visceral injury. No intra-abdominal free air. 2. Trace low-density free pelvic fluid, likely physiologic. 3. No acute fracture identified. Chest CT 06/11/22 18:44 IMPRESSION: 1. Exam limited by patient motion artifact. Allowing for this limitation. No appreciable acute intrathoracic injury. No acute solid visceral injury. No intra-abdominal free air. 2. Trace low-density free pelvic fluid, likely physiologic. 3. No acute fracture identified. Assessment and Plan (1) Syncope: Status: Acute (2) Trauma: Status: Acute (3) Intractable neuropathic pain of hand: Status: Acute Plan 62-year-old female with past medical history of opioid use disorder presents to the hospital after a fall with syncope # syncope - likely secondary to the fall - EKG shows bigeminy - will admit to telemetry - patient's UDS is positive for opioids as well as fentanyl but negative ethanol level - monitor # trauma - facial trauma after falling face forward - head CT negative, for CT of the face also negative - consider PT OT prior to discharge # intractable neuropathic pain of hands - no evidence of trauma, x-ray of the hand negative - no edema, no erythema, no evidence of cellulitis - afebrile, no leukocytosis - will obtain arterial Dopplers - gabapentin will be given and will re-evaluate pain control Opioid use disorder - continue methadone DVT prophylaxis: Lovenox Quality Stroke Does the patient have a stroke diagnosis?: No VTE Prior VTE?: No VTE Risk Level:: Medical - moderate - high VTE Device Contraindication: Treatment Not Indicated VTE Drug Contraindication: N/A - Med Ordered
[2022-06-11 22:51] VITALS: RESP 14
[2022-06-11] MEDS: HYDROmorphone HCl 1 MG/ML SYRINGE IVPUSH (22:51)
[2022-06-11] MEDS: Enoxaparin Sodium 40 MG/0.4 ML SYRINGE SUBCUT (22:51)
[2022-06-12] VITALS (8 sets, daily range): BP systolic 121–178; BP diastolic 44–70; PULSE 29–66; RESP 16–20; TEMP 36.2–36.6; O2SAT 95–98
[2022-06-12] MEDS: Gabapentin 100 MG CAPSULE PO (01:29)
[2022-06-12] MEDS: 0.9 % Sodium Chloride Flush 3 ML SYRINGE IVFLUSH ×2 (01:29→09:37)
[2022-06-12] MEDS: Morphine Sulfate 4 MG/ML CARTRIDGE IVPUSH ×4 (04:49→22:21)
[2022-06-12 05:01] LABS: MANUAL DIFF FLAG NO
[2022-06-12 05:02] LABS: Basophils Percent Auto 0.3 % (0-2); Eosinophils Percent Auto 0.1 % (0-4); Hematocrit 42.7 % (37.0-47.0); Hemoglobin 15.4 g/dl (12.0-16.0); Imm Gran Abs Auto 0.03 X10*3/uL (0.00-0.03); Imm Gran Pct Auto 0.3 % (0.0-0.4); Lymphocytes Percent Auto 19.8 % (20-40); Mean Corpuscular HGB Conc 36.1 g/dl (31.0-35.0); Mean Corpuscular Hemoglobin 32.2 pg (27.0-33.0); Mean Corpuscular Volume 89.1 fL (80.0-98.0); Mean Platelet Volume 11.8 fL (9.4-12.3); Monocytes Absolute Auto 0.6 X10*3/uL (0.1-1.2); Monocytes Percent Auto 5.4 % (2-11); Neutrophils Absolute Auto 7.5 x10*3/uL (2.0-8.3); Neutrophils Percent Auto 74.1 % (45-73); Platelet Count 162 X10*3/uL (160-400); Red Blood Count 4.79 X10*6/uL (4.20-5.50); White Blood Count 10.2 X10*3/uL (4.8-10.8)
[2022-06-12 05:23] LABS: Anion Gap 15 (12-20); Blood Urea Nitrogen 6 mg/dL (9-16); Carbon Dioxide 21 mmol/L (22-29); Chloride 103 mmol/L (96-108); Estimated Glomerular Filt Rate > 60; Glucose Random 112 mg/dL (60-115); Potassium 4.6 mmol/L (3.3-5.1); Sodium 134 mmol/L (135-145)
--- NOTE | 2022-06-12 08:24 | ECG_ITS ---
Test Reason : cony Blood Pressure : / mmHG Vent. Rate : 057 BPM Atrial Rate : 057 BPM P-R Int : 142 ms QRS Dur : 116 ms QT Int : 504 ms P-R-T Axes : 000 101 -73 degrees QTc Int : 490 ms Sinus bradycardia with Premature ventricular complexes in a pattern of bigeminy Left bundle branch block Abnormal ECG When compared with ECG of 11-JUN-2022 17:01, sinus rate is slower Referred By: Araceli Burgess Electronically Signed By:CRUZ SOLANO MD
--- NOTE | 2022-06-12 08:25 | PC.NURSE ---
pt's heart rate dropped down to 29, pt denies chest pain, is reporting some sob, hr 179/52 respirations even and unlabored, tigered lili haskins and getting a ekg
[2022-06-12] MEDS: methADONE HCl 20 MG/2 ML ORAL.CONC 65 MG PO (09:35)
[2022-06-12 09:46] LABS: Troponin-I High Sensitivity 144.5 ng/L (<3.5-17.0)
--- NOTE | 2022-06-12 10:29 | MHC.CM.PN ---
PT REPORTS SHE LIVES WITH ROOMMATES SHE SAYS SHE IS INDEPENDENT AT BASELINE AND USES NO DME OR SERVICES PT IS ACTIVE WITH [employer] SHE REPORTS SHE IS SCARED HER ROOMMATES ARE MEN AND WILL NOT HELP HER SHE SAYS SHE IS UNABLE TO USE EITHER HAND AT THIS TIME SO WILL NEED HOME SERVICES CM EXPLAINED THIS IS NOT SOMETHING THAT COULD BE ARRANGED TO START IMMEDIATELY, SHE ALSO DOES NOT HAVE INSURANCE COVERAGE FOR SUCH SERVICES. PT WILL ALSO NOT BE ELIGIBLE FOR [facility] SERVICES SHE HAS NOT SEEN A PCP IN 20 YEARS PT DOES NOT HAVE A HCP AND DECLINES AT THIS TIME. PT REPORTS SHE IS VACCINATED AGAINST COVID-19. OBSERVATION NOTICE DELIVERED, COPY SENT TO [facility] CURRENTLY DCP IS TBD PT REPORTS BEING OPEN TO STR DUE TO [employer], REFERRALS MADE TO [facility] AND [facility] TRANSPORT TBD BY [facility]PO
--- NOTE | 2022-06-12 11:40 | HO.PM.IMPN ---
Subjective Subjective Date of Service: 06/12/22 Interval History: seen and examined this morning nurse called for HR dropping into 20s. patient asymptomatic. BP stable Denies dizziness, chest pain, palpitations Reports severe pain in bilateral hands starting from wrist and including all 5 fingers on bilateral hands. She denies any pain from the wrist up. Severe pain with barely any palpation. States that yesterday she tripped over rock and fell, she did not pass out prior to her fall and did not feel dizzy prior to her fall. Review of Systems Review of Systems: Yes all other systems are reviewed and are negative Constitutional Constitutional: Denies chills and Denies fever(s) Cardiovascular Cardiovascular: Denies chest pain, Denies palpitations and Denies dyspnea Respiratory Respiratory: Denies cough and Denies dyspnea Gastrointestinal Gastrointestinal: Denies abdominal pain, Denies nausea and Denies vomiting Endocrine Endocrine: Denies palpitations Physical Exam Vital Signs: Vital Signs: Last Vital Signs Temp 97.5 F 06/12/22 06:13 Pulse 64 06/12/22 09:42 Resp 16 06/12/22 09:42 BP 159/53 H 06/12/22 09:42 Pulse Ox 98 06/12/22 09:42 O2 Del Method 06/12/22 08:20 BMI result Body Mass Index 15.9 Const: Other: Appears anxious, hard of hearing General: alert and awake Nutritional Appearance: thin Orientation/consciousness: patient oriented x3 Resp: Effort & Inspection: normal respiratory effort and able to speak in complete sentences Auscultation: clear to auscultation bilaterally Cardio: Rate: regular rate Heart sounds: S1 normal heart sound present and S2 normal heart sound present GI: Inspection: No distended Palpation (GI): nontender Skin: Other: abrasion to nose Neuro: General: patient oriented x3 Extrem: Other: no erythema, edema or apparent trauma to hands; not allowing exam of hands due to extreme pain with touching Objective Data Active Medications Acetaminophen (Acetaminophen 325 Mg Tablet) 650 mg PO Q6H PRN PRN Reason: Pain, Mild (Pain Scale 1-3) Docusate Sodium (Docusate Sodium 100 Mg Capsule) 100 mg PO DAILY PRN PRN Reason: Constipation Enoxaparin Sodium (Enoxaparin Sodium 40 Mg/0.4 Ml Syringe) 40 mg SUBCUT Q24H [facility] Last Admin: 06/11/22 22:51 Dose: 40 mg Documented By: NANETTE Methadone HCl (Methadone Hcl 20 Mg/2 Ml Oral.Conc) [address] [facility] Last Admin: 06/12/22 09:35 Dose: 65 mg Documented By: JESSY Morphine Sulfate (Morphine Sulfate 4 Mg/Ml Cartridge) 4 mg IVPUSH Q4H PRN; Protocol PRN Reason: Pain, Severe (Pain Scale 7-10) Last Admin: 06/12/22 09:42 Dose: 4 mg Documented By: JESSY Ondansetron HCl (Ondansetron Hcl 4 Mg/2 Ml Vial) 4 mg IVPUSH Q8H PRN PRN Reason: Nausea and Vomiting Pharmacy Consult (Consult Rx Perform Med Rec) 1 each MISCELLANE ONCE PRN PRN Reason: Consult order Sodium Chloride (0.9 % Sodium Chloride Flush 3 Ml Syringe) [address] [facility] Last Admin: 06/12/22 09:37 Dose: 3 ml Documented By: JESSY Labs CBC & Chem 7: 06/12/22 04:45 06/12/22 04:45 Labs: Laboratory Results - last 24 hr 06/11/22 06/11/22 06/11/22 16:43 16:43 16:43 MCV 90.0 MCH 32.2 MCHC 35.7 H RDW 12.9 Plt Count 212 MPV 11.2 Immature Gran % (Auto) 0.2 Neut % (Auto) 48.5 Lymph % (Auto) 37.8 [place] % (Auto) 9.1 Eos % (Auto) 3.9 Baso % (Auto) 0.5 Lymph # (Auto) 3.9 [place] # (Auto) 0.9 Eos # (Auto) 0.4 Baso # (Auto) 0.1 Abs Immat Gran (auto) 0.02 Absolute Neuts (auto) 5.0 Absolute Nucleated RBC 0.000 Nucleated RBC % (auto) 0.0 PT 10.8 INR 0.9 Anion Gap 14 Estim Creat Clear Calc 48.3 Estimated GFR > 60 Random Glucose 126 H Calcium 8.8 D Magnesium Total Bilirubin 0.6 AST 39 H ALT 30 Alkaline Phosphatase 57 Troponin I High Sens Total Protein 7.1 Albumin 4.4 Urine Color Urine Appearance Urine pH Ur Specific [place] Urine Protein Urine Glucose (UA) Urine Ketones Urine Blood Urine Nitrite Ur Leukocyte Esterase Urine RBC Urine WBC Ur Squamous Epith Cells Urine Bacteria Urine Opiates Screen Urine Fentanyl Screen Ur Barbiturates Screen Ur Phencyclidine Scrn Ur Amphetamines Screen U Benzodiazepines Scrn Urine Cocaine Screen U Marijuana (THC) Screen Ethyl Alcohol < 10 COVID-19 (KARIE) COVID-19 Clin Com 06/11/22 06/11/22 06/11/22 16:43 20:37 20:39 MCV MCH MCHC RDW Plt Count MPV Immature Gran % (Auto) Neut % (Auto) Lymph % (Auto) [place] % (Auto) Eos % (Auto) Baso % (Auto) Lymph # (Auto) [place] # (Auto) Eos # (Auto) Baso # (Auto) Abs Immat Gran (auto) Absolute Neuts (auto) Absolute Nucleated RBC Nucleated RBC % (auto) PT INR Anion Gap Estim Creat Clear Calc Estimated GFR Random Glucose Calcium Magnesium Total Bilirubin AST ALT Alkaline Phosphatase Troponin I High Sens 4.7 D Total Protein Albumin Urine Color STRAW Urine Appearance CLEAR Urine pH 6.5 Ur Specific [place] <= 1.005 Urine Protein NEG Urine Glucose (UA) NEG Urine Ketones NEG Urine Blood TRACE Urine Nitrite NEG Ur Leukocyte Esterase NEG Urine RBC 1-4 Urine WBC 0 Ur Squamous Epith Cells NONE Urine Bacteria NONE Urine Opiates Screen Urine Fentanyl Screen Ur Barbiturates Screen Ur Phencyclidine Scrn Ur Amphetamines Screen U Benzodiazepines Scrn Urine Cocaine Screen U Marijuana (THC) Screen Ethyl Alcohol COVID-19 (KARIE) Negative COVID-19 Clin Com See Note 06/11/22 06/12/22 06/12/22 20:39 04:45 04:45 MCV 89.1 MCH 32.2 MCHC 36.1 H RDW 13.0 Plt Count 162 MPV 11.8 Immature Gran % (Auto) 0.3 Neut % (Auto) 74.1 H Lymph % (Auto) 19.[address] [place] % (Auto) 5.4 Eos % (Auto) 0.1 Baso % (Auto) 0.3 Lymph # (Auto) 2.0 [place] # (Auto) 0.6 Eos # (Auto) 0.0 Baso # (Auto) 0.0 Abs Immat Gran (auto) 0.03 Absolute Neuts (auto) 7.5 Absolute Nucleated RBC 0.000 Nucleated RBC % (auto) 0.0 PT INR Anion Gap 15 Estim Creat Clear Calc 57.0 Estimated GFR > 60 Random Glucose 112 Calcium 9.0 Magnesium 2.0 Total Bilirubin AST ALT Alkaline Phosphatase Troponin I High Sens Total Protein Albumin Urine Color Urine Appearance Urine pH Ur Specific [place] Urine Protein Urine Glucose (UA) Urine Ketones Urine Blood Urine Nitrite Ur Leukocyte Esterase Urine RBC Urine WBC Ur Squamous Epith Cells Urine Bacteria Urine Opiates Screen POSITIVE H Urine Fentanyl Screen POSITIVE H Ur Barbiturates Screen Not Detected Ur Phencyclidine Scrn Not Detected Ur Amphetamines Screen Not Detected U Benzodiazepines Scrn Not Detected Urine Cocaine Screen Not Detected U Marijuana (THC) Screen POSITIVE H Ethyl Alcohol COVID-19 (KARIE) COVID-19 Clin Com 06/12/22 09:20 MCV MCH MCHC RDW Plt Count MPV Immature Gran % (Auto) Neut % (Auto) Lymph % (Auto) [place] % (Auto) Eos % (Auto) Baso % (Auto) Lymph # (Auto) [place] # (Auto) Eos # (Auto) Baso # (Auto) Abs Immat Gran (auto) Absolute Neuts (auto) Absolute Nucleated RBC Nucleated RBC % (auto) PT INR Anion Gap Estim Creat Clear Calc Estimated GFR Random Glucose Calcium Magnesium Total Bilirubin AST ALT Alkaline Phosphatase Troponin I High Sens 144.5 H* D Total Protein Albumin Urine Color Urine Appearance Urine pH Ur Specific [place] Urine Protein Urine Glucose (UA) Urine Ketones Urine Blood Urine Nitrite Ur Leukocyte Esterase Urine RBC Urine WBC Ur Squamous Epith Cells Urine Bacteria Urine Opiates Screen Urine Fentanyl Screen Ur Barbiturates Screen Ur Phencyclidine Scrn Ur Amphetamines Screen U Benzodiazepines Scrn Urine Cocaine Screen U Marijuana (THC) Screen Ethyl Alcohol COVID-19 (KARIE) COVID-19 Clin Com Assessment and Plan (1) Intractable neuropathic pain of hand: Status: Acute Plan 62-year-old female with past medical history of opioid use disorder presents to the hospital after a fall with syncope syncope Patient states that she tripped and fell, she did not pass out until after fall - EKG shows bigeminy - continue tele monitoring - patient's UDS is positive for opioids as well as fentanyl but negative ethanol level- also seems like she received fentanyl, opiates in ED prior to tox screen - trop increased to 144 - cardiology consult pending intractable pain of hands no evidence of trauma, x-ray of the hand negative no edema, no erythema, no evidence of cellulitis afebrile, no leukocytosis - arterial Dopplers pending - continue pain meds Opioid use disorder - continue methadone DVT prophylaxis: Lovenox Attending - Dr. Royal Requires ongoing inpatient hospitalization for cardiology evaluation, tele monitoring, IV pain medication Quality Stroke Does the patient have a stroke diagnosis?: No VTE Prior VTE?: No VTE Risk Level:: Medical - moderate - high VTE Device Contraindication: Treatment Not Indicated VTE Drug Contraindication: N/A - Med Ordered
[2022-06-12 12:55] LABS: Troponin-I High Sensitivity 134.1 ng/L (<3.5-17.0)
--- NOTE | 2022-06-12 13:36 | PM.CNCAR ---
History of Present Illness History of Present Illness Date of Service: 06/12/22 Requesting physician: Araceli Burgess Consult reason: other (Question bradycardia) Chief complaint: Syncope Narrative: I was requested to see Sepideh in cardiology consultation today because of noted slow heart rate. However reviewing her strips there appears to be clearly bigeminal rhythm, falsely lowering the heart rate. She has no significant bradycardia noted on the monitor. Her pulses noted to be on the lower side most likely due to bigeminal pattern. She says she came to the hospital because she fell down. She has tripped on a rock and then was going down and trying to brace of fall with both her hands. She then hit her head and that said subsequently passed out after she hit her head. She has left bundle-branch block including prior EKG but does not know about it. She was not aware. She has no prior cardiac history. She does not usually and nursing physician. She says she has no prior medical history including no hypertension. She was last admitted because of drug overdose. She otherwise is pretty functional as per the significant other present. She has no history of lightheadedness. No exertional chest pain or shortness of breath. Review of Systems Constitutional: Constitutional: Reports no additional constitutional complaints Eyes: Eyes: Reports no additional eye complaints Cardiovascular: Cardiovascular: Reports no additional cardiovascular complaints, Denies chest pain, Denies rapid heart rate, Denies lightheadedness, Denies palpitations and Denies dyspnea Respiratory: Respiratory: Reports no additional respiratory complaints and Denies dyspnea Gastrointestinal: Gastrointestinal: Reports no additional gastrointestinal complaints Genitourinary: Genitourinary: Reports no additional female genitourinary complaints Musculoskeletal: Musculoskeletal: Reports other (Significant upper extremity discomfort) Neurologic: Reports system reviewed and no additional complaints, except as documented Endocrine: Endocrine: Denies palpitations PMF Past Medical History Medical History History of thoracic outlet syndrome Trigeminal neuralgia Family History Family History Other No family history of coronary artery disease Surgical History Surgical History History of hysterectomy Social History Social History Alcohol intake: never Patient Tobacco Use Status: Current everyday Tobacco user Substance Use Type: Marijuana Advance Directives: No Advance Directives Information Provided: No Patient : No service: No Current occupational status: unemployed Meds Allergies Allergy/AdvReac Type Severity Reaction Status Date / Time Sulfa (Sulfonamide Allergy Intermediate SWELLING Unverified 08/14/20 16:00 Antibiotics) metronidazole [Flagyl] Allergy Unknown Verified 03/20/18 00:00 From FLAGYL Allergy Unknown SWELLING Uncoded 08/14/20 16:00 Active Medications: Current Medications Acetaminophen (Acetaminophen 325 Mg Tablet) 650 mg PO Q6H PRN PRN Reason: Pain, Mild (Pain Scale 1-3) Docusate Sodium (Docusate Sodium 100 Mg Capsule) 100 mg PO DAILY PRN PRN Reason: Constipation Enoxaparin Sodium (Enoxaparin Sodium 40 Mg/0.4 Ml Syringe) 40 mg SUBCUT Q24H [facility] Last Admin: 06/11/22 22:51 Dose: 40 mg Methadone HCl (Methadone Hcl 20 Mg/2 Ml Oral.Conc) 65 mg PO DAILY [facility] Last Admin: 06/12/22 09:35 Dose: 65 mg Morphine Sulfate (Morphine Sulfate 4 Mg/Ml Cartridge) 4 mg IVPUSH Q4H PRN; Protocol PRN Reason: Pain, Severe (Pain Scale 7-10) Last Admin: 06/12/22 09:42 Dose: 4 mg Ondansetron HCl (Ondansetron Hcl 4 Mg/2 Ml Vial) 4 mg IVPUSH Q8H PRN PRN Reason: Nausea and Vomiting Pharmacy Consult (Consult Rx Perform Med Rec) 1 each MISCELLANE ONCE PRN PRN Reason: Consult order Sodium Chloride (0.9 % Sodium Chloride Flush 3 Ml Syringe) 3 ml IVFLUSH QSHIFT [facility] Last Admin: 06/12/22 09:37 Dose: 3 ml Home Medications Medication Instructions Recorded Confirmed Last Taken Type methadone 10 mg/mL oral 65 mg PO DAILY 06/11/22 06/11/22 06/11/22 History concentrate (Methadone Intensol) Physical Exam Vital Signs: Vital Signs: Last Vital Signs Temp 97.5 F 06/12/22 06:13 Pulse 64 06/12/22 09:42 Resp 16 06/12/22 09:42 BP 159/53 H 06/12/22 09:42 Pulse Ox 98 06/12/22 09:42 O2 Del Method 06/12/22 08:20 BMI result Body Mass Index 15.9 Const: General: cooperative, alert, awake, in distress (Moderate distress due to pain) and poor hygiene Nutritional Appearance: thin Orientation/consciousness: patient oriented x3 HEENT: Head: Yes normocephalic and Yes other (Abrasion on her face) Neck: Neck: Yes trachea midline, Yes supple and Yes no JVD Resp: Effort & Inspection: normal respiratory effort Auscultation: clear to auscultation bilaterally Cardio: Jugular venous distension: no JVD Palpation: normal PMI Rate: regular rate Rhythm: abnormal rhythm regularly irregular Heart sounds: S1 normal heart sound present, S2 normal heart sound present, no click, no gallops, no murmurs and no rubs GI: Auscultation: normal bowel sounds Skin: General skin exam: no rashes or lesions noted Neuro: General: patient oriented x3 and no focal motor deficits Extrem: General: Yes no clubbing, cyanosis or edema Objective Labs and Meds Result diagrams: 06/12/22 04:45 06/12/22 04:45 Lab results: Laboratory Results - last 24 hr 06/11/22 06/11/22 06/11/22 16:43 16:43 16:43 WBC 10.3 RBC 4.32 Hgb 13.9 Hct 38.9 D MCV 90.0 MCH 32.2 MCHC 35.7 H RDW 12.9 Plt Count 212 MPV 11.2 Immature Gran % (Auto) 0.2 Neut % (Auto) 48.5 Lymph % (Auto) 37.8 [place] % (Auto) 9.1 Eos % (Auto) 3.9 Baso % (Auto) 0.5 Lymph # (Auto) 3.9 [place] # (Auto) 0.9 Eos # (Auto) 0.4 Baso # (Auto) 0.1 Abs Immat Gran (auto) 0.02 Absolute Neuts (auto) 5.0 Absolute Nucleated RBC 0.000 Nucleated RBC % (auto) 0.0 PT 10.8 INR 0.9 Sodium 130 L Potassium 4.0 Chloride 97 Carbon Dioxide 23 Anion Gap 14 BUN 5 L D Creatinine 0.78 Estim Creat Clear Calc 48.3 Estimated GFR > 60 Random Glucose 126 H Calcium 8.8 D Magnesium Total Bilirubin 0.6 AST 39 H ALT 30 Alkaline Phosphatase 57 Total Creatine Kinase Troponin I High Sens Total Protein 7.1 Albumin 4.4 Urine Color Urine Appearance Urine pH Ur Specific [place] Urine Protein Urine Glucose (UA) Urine Ketones Urine Blood Urine Nitrite Ur Leukocyte Esterase Urine RBC Urine WBC Ur Squamous Epith Cells Urine Bacteria Urine Opiates Screen Urine Fentanyl Screen Ur Barbiturates Screen Ur Phencyclidine Scrn Ur Amphetamines Screen U Benzodiazepines Scrn Urine Cocaine Screen U Marijuana (THC) Screen Ethyl Alcohol < 10 COVID-19 (KARIE) COVID-19 Clin Com 06/11/22 06/11/22 06/11/22 16:43 20:37 20:39 WBC RBC Hgb Hct MCV MCH MCHC RDW Plt Count MPV Immature Gran % (Auto) Neut % (Auto) Lymph % (Auto) [place] % (Auto) Eos % (Auto) Baso % (Auto) Lymph # (Auto) [place] # (Auto) Eos # (Auto) Baso # (Auto) Abs Immat Gran (auto) Absolute Neuts (auto) Absolute Nucleated RBC Nucleated RBC % (auto) PT INR Sodium Potassium Chloride Carbon Dioxide Anion Gap BUN Creatinine Estim Creat Clear Calc Estimated GFR Random Glucose Calcium Magnesium Total Bilirubin AST ALT Alkaline Phosphatase Total Creatine Kinase Troponin I High Sens 4.7 D Total Protein Albumin Urine Color STRAW Urine Appearance CLEAR Urine pH 6.5 Ur Specific [place] <= 1.005 Urine Protein NEG Urine Glucose (UA) NEG Urine Ketones NEG Urine Blood TRACE Urine Nitrite NEG Ur Leukocyte Esterase NEG Urine RBC 1-4 Urine WBC 0 Ur Squamous Epith Cells NONE Urine Bacteria NONE Urine Opiates Screen Urine Fentanyl Screen Ur Barbiturates Screen Ur Phencyclidine Scrn Ur Amphetamines Screen U Benzodiazepines Scrn Urine Cocaine Screen U Marijuana (THC) Screen Ethyl Alcohol COVID-19 (KARIE) Negative COVID-19 Clin Com See Note 06/11/22 06/12/22 06/12/22 20:39 04:45 04:45 WBC 10.2 RBC 4.79 Hgb 15.4 Hct 42.7 MCV 89.1 MCH 32.2 MCHC 36.1 H RDW 13.0 Plt Count 162 MPV 11.8 Immature Gran % (Auto) 0.3 Neut % (Auto) 74.1 H Lymph % (Auto) 19.8 L [place] % (Auto) 5.4 Eos % (Auto) 0.1 Baso % (Auto) 0.3 Lymph # (Auto) 2.0 [place] # (Auto) 0.6 Eos # (Auto) 0.0 Baso # (Auto) 0.0 Abs Immat Gran (auto) 0.03 Absolute Neuts (auto) 7.5 Absolute Nucleated RBC 0.000 Nucleated RBC % (auto) 0.0 PT INR Sodium 134 L Potassium 4.6 Chloride 103 Carbon Dioxide 21 L Anion Gap 15 BUN 6 L Creatinine 0.66 Estim Creat Clear Calc 57.0 Estimated GFR > 60 Random Glucose 112 Calcium 9.0 Magnesium 2.0 Total Bilirubin AST ALT Alkaline Phosphatase Total Creatine Kinase 175 H Troponin I High Sens Total Protein Albumin Urine Color Urine Appearance Urine pH Ur Specific [place] Urine Protein Urine Glucose (UA) Urine Ketones Urine Blood Urine Nitrite Ur Leukocyte Esterase Urine RBC Urine WBC Ur Squamous Epith Cells Urine Bacteria Urine Opiates Screen POSITIVE H Urine Fentanyl Screen POSITIVE H Ur Barbiturates Screen Not Detected Ur Phencyclidine Scrn Not Detected Ur Amphetamines Screen Not Detected U Benzodiazepines Scrn Not Detected Urine Cocaine Screen Not Detected U Marijuana (THC) Screen POSITIVE H Ethyl Alcohol COVID-19 (KARIE) COVID-Tune 06/12/22 06/12/22 09:20 12:16 WBC RBC Hgb Hct MCV MCH MCHC RDW Plt Count MPV Immature Gran % (Auto) Neut % (Auto) Lymph % (Auto) [place] % (Auto) Eos % (Auto) Baso % (Auto) Lymph # (Auto) [place] # (Auto) Eos # (Auto) Baso # (Auto) Abs Immat Gran (auto) Absolute Neuts (auto) Absolute Nucleated RBC Nucleated RBC % (auto) PT INR Sodium Potassium Chloride Carbon Dioxide Anion Gap BUN Creatinine Estim Creat Clear Calc Estimated GFR Random Glucose Calcium Magnesium Total Bilirubin AST ALT Alkaline Phosphatase Total Creatine Kinase Troponin I High Sens 144.5 H* D 134.1 H* Total Protein Albumin Urine Color Urine Appearance Urine pH Ur Specific [place] Urine Protein Urine Glucose (UA) Urine Ketones Urine Blood Urine Nitrite Ur Leukocyte Esterase Urine RBC Urine WBC Ur Squamous Epith Cells Urine Bacteria Urine Opiates Screen Urine Fentanyl Screen Ur Barbiturates Screen Ur Phencyclidine Scrn Ur Amphetamines Screen U Benzodiazepines Scrn Urine Cocaine Screen U Marijuana (THC) Screen Ethyl Alcohol COVID-19 (KARIE) COVID-19 [employer] Com Imaging Radiologist's impression: Impressions Forearm X-Ray 06/11/22 18:40 IMPRESSION: No fracture. Hand/Wrist X-Ray 06/11/22 18:40 IMPRESSION: No acute fracture or dislocation allowing for limitation, as above. Cervical Spine CT 06/11/22 18:43 IMPRESSION: 1. No intracranial hemorrhage or calvarial fracture. 2. No acute facial bone fracture. 3. No traumatic subluxation or acute cervical spine fracture. Face CT 06/11/22 18:43 IMPRESSION: 1. No intracranial hemorrhage or calvarial fracture. 2. No acute facial bone fracture. 3. No traumatic subluxation or acute cervical spine fracture. Head CT 06/11/22 18:43 IMPRESSION: 1. No intracranial hemorrhage or calvarial fracture. 2. No acute facial bone fracture. 3. No traumatic subluxation or acute cervical spine fracture. Abdomen/Pelvis CT 06/11/22 18:44 IMPRESSION: 1. Exam limited by patient motion artifact. Allowing for this limitation. No appreciable acute intrathoracic injury. No acute solid visceral injury. No intra-abdominal free air. 2. Trace low-density free pelvic fluid, likely physiologic. 3. No acute fracture identified. Chest CT 06/11/22 18:44 IMPRESSION: 1. Exam limited by patient motion artifact. Allowing for this limitation. No appreciable acute intrathoracic injury. No acute solid visceral injury. No intra-abdominal free air. 2. Trace low-density free pelvic fluid, likely physiologic. 3. No acute fracture identified. Assessment and Plan (1) PVCs (premature ventricular contractions): Status: Acute Frequent PVCs in bigeminal pattern without any symptoms. She has history of PVC from prior EKG. This is falsely causing slow heart rate measurements on telemetry. There is no clear bradycardia. There is no indication for any interventions. Will require outpatient Holter monitor to assess for frequency of PVCs. Will also need an echocardiogram. Patient did not have any clear syncopal episode and appears to have had an accidental fall. (2) Left bundle branch block: Status: Acute Left bundle-branch block which is been present on prior EKG. Patient was not aware of it. Will require workup for structural heart disease as an outpatient. She was made aware of it. She was explained the pathophysiology of left bundle-branch block. She showed some understanding. Will set up for outpatient workup. Thank you for allowing us to partake in the care Procedures Date of Service Date of Service: 06/12/22
--- NOTE | 2022-06-12 13:58 | PC.NURSE ---
PT SWEARING AT STAFF, SPITTING ON FLOOR.
--- NOTE | 2022-06-12 16:44 | PC.NURSE ---
Pt resting peaceful, no signs of discomfort
[2022-06-12] MEDS: Enoxaparin Sodium 40 MG/0.4 ML SYRINGE SUBCUT (22:22)
[2022-06-12] MEDS: LORazepam 0.5 MG TABLET PO (23:08)
--- NOTE | 2022-06-13 00:11 | PC.NURSE ---
Assumed care of the patient at 1900. Pt. was complaining of pain in her hands d/t a previous fall. Pt. given morphine for pain as per JAN. Pt. also c/o anxiety. PO ativan was ordered and given per the JAN. Pt. reported being able to transfer to the commode and urinate as she knew everyone was very busy . Continue to monitor.
[2022-06-13] MEDS: Morphine Sulfate 4 MG/ML CARTRIDGE IVPUSH ×3 (03:29→23:50)
[2022-06-13 03:33] VITALS: BP 145/47; PULSE 79; RESP 16; O2SAT 99
--- NOTE | 2022-06-13 04:00 | PC.NURSE ---
Pt. rang call barak, c/o pain. Pt. medicated with morphine as per the MAR. Pt. now resting quietly. Continue to monitor.
[2022-06-13 06:00] LABS: Hematocrit 43.8 % (37.0-47.0); Hemoglobin 15.6 g/dl (12.0-16.0); Mean Corpuscular HGB Conc 35.6 g/dl (31.0-35.0); Mean Corpuscular Hemoglobin 31.9 pg (27.0-33.0); Mean Corpuscular Volume 89.6 fL (80.0-98.0); Mean Platelet Volume 11.4 fL (9.4-12.3); Platelet Count 192 X10*3/uL (160-400); Red Blood Count 4.89 X10*6/uL (4.20-5.50); Red Cell Distribution Width 13.2 % (11.0-16.0); White Blood Count 11.8 X10*3/uL (4.8-10.8)
[2022-06-13 06:24] LABS: Anion Gap 15 (12-20); Blood Urea Nitrogen 13 mg/dL (9-16); Calcium 8.9 mg/dL (8.4-10.2); Carbon Dioxide 22 mmol/L (22-29); Chloride 101 mmol/L (96-108); Creatinine Clr Calc Pharmacy 48.3; Estimated Glomerular Filt Rate > 60; Glucose Random 106 mg/dL (60-115); Potassium 4.2 mmol/L (3.3-5.1); Sodium 134 mmol/L (135-145)
[2022-06-13] MEDS: methADONE HCl 20 MG/2 ML ORAL.CONC 65 MG PO (08:31)
[2022-06-13] MEDS: 0.9 % Sodium Chloride Flush 3 ML SYRINGE IVFLUSH ×2 (08:31→16:44)
[2022-06-13 08:33] VITALS: BP 155/60; PULSE 58; RESP 18; O2SAT 96
--- NOTE | 2022-06-13 16:28 | HO.PM.IMPN ---
Subjective Subjective Date of Service: 06/13/22 Interval History: seen and examined this morning follow up for hand pain pain improving, but still very painful event to slight touch. Full ROM at elbows and shoulders but reporting pain at wrists and including all 5 fingers on both hands Review of Systems Review of Systems: Yes all other systems are reviewed and are negative Constitutional Constitutional: Denies chills and Denies fever(s) Cardiovascular Cardiovascular: Denies chest pain, Denies palpitations and Denies dyspnea Respiratory Respiratory: Denies cough and Denies dyspnea Gastrointestinal Gastrointestinal: Denies abdominal pain, Denies nausea and Denies vomiting Endocrine Endocrine: Denies palpitations Physical Exam Vital Signs: Vital Signs: Last Vital Signs Temp 97.5 F 06/12/22 06:13 Pulse 58 06/13/22 08:33 Resp 18 06/13/22 08:33 BP 155/60 H 06/13/22 08:33 Pulse Ox 96 06/13/22 08:33 O2 Del Method 06/13/22 08:33 BMI result Body Mass Index 15.9 Const: Other: Appears anxious, hard of hearing General: alert and awake Nutritional Appearance: thin Orientation/consciousness: patient oriented x3 Resp: Effort & Inspection: normal respiratory effort and able to speak in complete sentences Auscultation: clear to auscultation bilaterally Cardio: Rate: regular rate Heart sounds: S1 normal heart sound present and S2 normal heart sound present GI: Inspection: No distended Palpation (GI): nontender Skin: Other: abrasion to nose Neuro: General: patient oriented x3 Extrem: Other: no erythema, edema or apparent trauma to hands; not allowing exam of hands due to extreme pain with touching; able to move both arms at shoulder and elbow but stating decreased ROM at left wrist especially and b/l hands limited by pain Objective Data Active Medications Acetaminophen (Acetaminophen 325 Mg Tablet) 650 mg PO Q6H PRN PRN Reason: Pain, Mild (Pain Scale 1-3) Docusate Sodium (Docusate Sodium 100 Mg Capsule) 100 mg PO DAILY PRN PRN Reason: Constipation Enoxaparin Sodium (Enoxaparin Sodium 40 Mg/0.4 Ml Syringe) 40 mg SUBCUT Q24H [facility] Last Admin: 06/12/22 22:22 Dose: 40 mg Documented By: TRA Methadone HCl (Methadone Hcl 20 Mg/2 Ml Oral.Conc) 65 mg PO DAILY [facility] Last Admin: 06/13/22 08:31 Dose: 65 mg Documented By: ANDRES Morphine Sulfate (Morphine Sulfate 4 Mg/Ml Cartridge) 4 mg IVPUSH Q4H PRN; Protocol PRN Reason: Pain, Severe (Pain Scale 7-10) Last Admin: 06/13/22 09:11 Dose: 4 mg Documented By: ANDRES Ondansetron HCl (Ondansetron Hcl 4 Mg/2 Ml Vial) 4 mg IVPUSH Q8H PRN PRN Reason: Nausea and Vomiting Pharmacy Consult (Consult Rx Perform Med Rec) 1 each MISCELLANE ONCE PRN PRN Reason: Consult order Sodium Chloride (0.9 % Sodium Chloride Flush 3 Ml Syringe) 3 ml IVFLUSH QSHIFT [facility] Last Admin: 06/13/22 08:31 Dose: 3 ml Documented By: ANDRES Labs CBC & Chem 7: 06/13/22 05:56 06/13/22 05:56 Labs: Laboratory Results - last 24 hr 06/13/22 06/13/22 05:56 05:56 MCV 89.6 MCH 31.9 MCHC 35.6 H RDW 13.2 Plt Count 192 MPV 11.4 Absolute Nucleated RBC 0.000 Nucleated RBC % (auto) 0.0 Anion Gap 15 Estim Creat Clear Calc 48.3 Estimated GFR > 60 Random Glucose 106 Calcium 8.9 Assessment and Plan (1) Left bundle branch block: Status: Acute (2) PVCs (premature ventricular contractions): Status: Acute (3) Intractable neuropathic pain of hand: Status: Acute Plan 62-year-old female with past medical history of opioid use disorder presents to the hospital after a fall with syncope intractable pain of hands pain with slightest touch, but appears to be improving somewhat no evidence of trauma, x-ray of the hand negative no edema, no erythema, no evidence of cellulitis afebrile, no leukocytosis arterial Dopplers negative - neurology consult pending - continue pain meds syncope Initially thought to have syncope but Patient states that she tripped and fell, she did not pass out until after fall Abnormal EKG EKG shows bigeminy. History of PVCs on prior EKG. Causing falsely slow heart rate measurements on telemetry. Seen by EKG will need outpatient echocardiogram, Holter due to left bundle branch block cardiology aware of increased trops. no further inpatient workup indicated Opioid use disorder - continue methadone DVT prophylaxis: Lovenox Attending - Dr. Royal Requires ongoing inpatient hospitalization for neurology, IV pain medication Quality Stroke Does the patient have a stroke diagnosis?: No VTE Prior VTE?: No VTE Risk Level:: Medical - moderate - high VTE Device Contraindication: Treatment Not Indicated VTE Drug Contraindication: N/A - Med Ordered
[2022-06-13 16:45] VITALS: BP 127/46; PULSE 64; RESP 18; TEMP 36.8
[2022-06-13 21:39] VITALS: BP 93/39; PULSE 40; RESP 10; O2SAT 95
[2022-06-13 21:43] VITALS: BP 119/57; PULSE 44; RESP 13; O2SAT 93
--- NOTE | 2022-06-13 21:44 | PC.NURSE ---
pt a&ox3, hypotensive while sleeping, bp stabilized when pt was woken up. pt remains in bigeminy w HR in the 40s. pt requesting pb&j with evening meds.
[2022-06-13 23:50] VITALS: RESP 14
[2022-06-13] MEDS: Enoxaparin Sodium 40 MG/0.4 ML SYRINGE SUBCUT (23:53)
[2022-06-14] VITALS (7 sets, daily range): BP systolic 101–142; BP diastolic 44–79; PULSE 42–78; RESP 12–18; TEMP 36.2–36.9; O2SAT 92–97; BMI 18.3
--- NOTE | 2022-06-14 05:41 | PC.NURSE ---
rhythm change noted on shelter monitor, EKG done by tech, provider notified. pt asymptomatic.
[2022-06-14] MEDS: Morphine Sulfate 4 MG/ML CARTRIDGE IVPUSH ×3 (07:17→23:45)
--- NOTE | 2022-06-14 07:21 | PC.NURSE ---
Pt medicated for 9/10 pain per provider order.
[2022-06-14] MEDS: 0.9 % Sodium Chloride Flush 3 ML SYRINGE IVFLUSH ×3 (09:55→21:32)
--- NOTE | 2022-06-14 10:10 | PC.NURSE ---
Dr. Hubert Kebede . at bedside for consult . patient aware of pplan of care .
--- NOTE | 2022-06-14 10:12 | ECG_ITS ---
Test Reason : cp Blood Pressure : / mmHG Vent. Rate : 038 BPM Atrial Rate : 038 BPM P-R Int : 164 ms QRS Dur : 142 ms QT Int : 642 ms P-R-T Axes : 086 -73 073 degrees QTc Int : 510 ms Marked sinus bradycardia Biatrial enlargement Left axis deviation Left bundle branch block Abnormal ECG When compared with ECG of 12-JUN-2022 08:24, Premature ventricular complexes are no longer Present Vent. rate has decreased BY 19 BPM Left bundle branch block has replaced Incomplete right bundle branch block Criteria for Lateral infarct are no longer Present Referred By: Araceli Burgess Electronically Signed By:Juan Richardson
--- NOTE | 2022-06-14 10:12 | ECG_ITS ---
Test Reason : bradycardia Blood Pressure : / mmHG Vent. Rate : 040 BPM Atrial Rate : 040 BPM P-R Int : 148 ms QRS Dur : 136 ms QT Int : 606 ms P-R-T Axes : 083 -70 043 degrees QTc Int : 493 ms Marked sinus bradycardia Biatrial enlargement Left axis deviation Left bundle branch block Abnormal ECG When compared with ECG of 14-JUN-2022 05:23, No significant change was found Referred By: Araceli Burgess Electronically Signed By:Juan Richardson
[2022-06-14] MEDS: methADONE HCl 20 MG/2 ML ORAL.CONC 65 MG PO (10:33)
--- NOTE | 2022-06-14 10:35 | PC.NURSE ---
patient a/o x4 . lungs diminished . bradycardic on monitor 40-50 , ekg obtained . provider aware .skin pink warm and dry . bilateral naturopathic pain to hands and wrist . patient cannot tolerated anything touching her hands or wrists . burning sensation reported . abdomen flat , soft non tender . positive bowel sounds in all quadrants . patient aware of plan of care .
--- NOTE | 2022-06-14 11:29 | PC.NURSE ---
pt seen by physical therapy - recommendation - outpatient with services. pt/md aware
--- NOTE | 2022-06-14 12:04 | PM.NEUROCN ---
History of Present Illness Data of Consult Service Date: 06/14/22 Primary Care Provider: Unknown Physician HPI Reason for consult: Hand numbness 62 years old woman with underlying history of opiate overuse being treated with methadone came to hospital after she fell. She said that she tripped on a rug. When she landed her whole weight went on to her hands and wrists. Now she was complaining of bilateral hand and forearm pain and sensitivity. Even light touch to that area was painful. Review of Systems Review of Systems: No recent cold or flu-like illness PMFSH Past Medical History Medical History History of thoracic outlet syndrome Trigeminal neuralgia Family History Family History Other No family history of coronary artery disease Surgical History Surgical History History of hysterectomy Social History Social History Alcohol intake: never Patient Tobacco Use Status: Current everyday Tobacco user Substance Use Type: Marijuana Advance Directives: No Advance Directives Information Provided: No Patient : No service: No Current occupational status: unemployed Meds Allergies Allergy/AdvReac Type Severity Reaction Status Date / Time Sulfa (Sulfonamide Allergy Intermediate SWELLING Unverified 08/14/20 16:00 Antibiotics) metronidazole [Flagyl] Allergy Unknown Verified 03/20/18 00:00 From FLAGYL Allergy Unknown SWELLING Uncoded 08/14/20 16:00 Active Medications: Current Medications Acetaminophen (Acetaminophen 325 Mg Tablet) 650 mg PO Q6H PRN PRN Reason: Pain, Mild (Pain Scale 1-3) Docusate Sodium (Docusate Sodium 100 Mg Capsule) 100 mg PO DAILY PRN PRN Reason: Constipation Enoxaparin Sodium (Enoxaparin Sodium 40 Mg/0.4 Ml Syringe) 40 mg SUBCUT Q24H [facility] Last Admin: 06/13/22 23:53 Dose: 40 mg Methadone HCl (Methadone Hcl 20 Mg/2 Ml Oral.Conc) 65 mg PO DAILY [facility] Last Admin: 06/14/22 10:33 Dose: 65 mg Morphine Sulfate (Morphine Sulfate 4 Mg/Ml Cartridge) 4 mg IVPUSH Q4H PRN; Protocol PRN Reason: Pain, Severe (Pain Scale 7-10) Last Admin: 06/14/22 07:17 Dose: 4 mg Ondansetron HCl (Ondansetron Hcl 4 Mg/2 Ml Vial) 4 mg IVPUSH Q8H PRN PRN Reason: Nausea and Vomiting Pharmacy Consult (Consult Rx Perform Med Rec) 1 each MISCELLANE ONCE PRN PRN Reason: Consult order Sodium Chloride (0.9 % Sodium Chloride Flush 3 Ml Syringe) 3 ml IVFLUSH QSHIFT [facility] Last Admin: 06/14/22 09:55 Dose: 3 ml Home Medications Medication Instructions Recorded Confirmed Last Taken Type methadone 10 mg/mL oral 65 mg PO DAILY 06/11/22 06/11/22 06/11/22 History concentrate (Methadone Intensol) Physical Exam Vital Signs: Vital Signs: Last Vital Signs Temp 97.9 F 06/14/22 09:59 Pulse 43 L 06/14/22 11:30 Resp 16 06/14/22 09:59 BP 127/54 L 06/14/22 11:30 Pulse Ox 93 06/14/22 11:30 O2 Del Method 06/14/22 09:59 BMI result Body Mass Index 15.9 Neuro: Other: Alert and awake with normal spontaneity of speech fluency comprehension and affect. She was keeping her both wrists flexed and even light touch to that area was uncomfortable for her. Deep tendon reflexes were trace to absent in arms and legs with flexor plantars. She was able to move her legs and did not have any discomfort in legs. Speech was normal. Face was symmetrical. Visual rashid are full. Extraocular muscles were intact. Results Labs CBC & Chem 7: 06/13/22 05:56 06/13/22 05:56 Labs: Noncontrast head CT did not reveal any significant abnormality per Assessment and Plan (1) Neuropathic pain: Status: Acute Bilateral hand pain that started after she fell and landed on her hand extending her wrists. She might have injured nerves at wrist level. At this time my recommendation is bilateral wrist splints at least during sleep time, and gabapentin 100 mg 2 times a day. She reported that she had tripped but her tox screen was positive for fentanyl and marijuana. She should be strongly advised to discontinue all drugs of abuse. If symptoms do not improve in few weeks time, an outpatient EMG nerve conduction study of upper extremities can be considered for evaluation of injury Procedures Date of Service Date of Service: 06/14/22
--- NOTE | 2022-06-14 15:05 | PC.NURSE ---
NP. Li at bedside for admission assessment . patient aware of plan of care .
--- NOTE | 2022-06-14 16:01 | P.PNIM_ITS ---
Subjective Subjective Date of Service: 06/14/22 Physical Exam Vital Signs: Vital Signs: Last Vital Signs Temp 98.5 F 06/14/22 15:08 Pulse 42 L 06/14/22 15:08 Resp 16 06/14/22 15:08 BP 111/44 L 06/14/22 15:08 Pulse Ox 94 06/14/22 15:08 O2 Del Method 06/14/22 15:08 BMI result Body Mass Index 15.9 Appearing in no acute distress lung sounds are clear to auscultation heart regular rate rhythm, clear S1, S2 positive bowel sounds, abdomen is soft, nontender neuro patient is alert x3, no focal deficits scab to forehead Objective Data Active Medications Acetaminophen (Acetaminophen 325 Mg Tablet) 650 mg PO Q6H PRN PRN Reason: Pain, Mild (Pain Scale 1-3) Docusate Sodium (Docusate Sodium 100 Mg Capsule) 100 mg PO DAILY PRN PRN Reason: Constipation Enoxaparin Sodium (Enoxaparin Sodium 40 Mg/0.4 Ml Syringe) 40 mg SUBCUT Q24H [facility] Last Admin: 06/13/22 23:53 Dose: 40 mg Documented By: MYLENE Methadone HCl (Methadone Hcl 20 Mg/2 Ml Oral.Conc) 65 mg PO DAILY [facility] Last Admin: 06/14/22 10:33 Dose: 65 mg Documented By: RHETT Morphine Sulfate (Morphine Sulfate 4 Mg/Ml Cartridge) 4 mg IVPUSH Q4H PRN; Protocol PRN Reason: Pain, Severe (Pain Scale 7-10) Last Admin: 06/14/22 15:04 Dose: 4 mg Documented By: RHETT Ondansetron HCl (Ondansetron Hcl 4 Mg/2 Ml Vial) 4 mg IVPUSH Q8H PRN PRN Reason: Nausea and Vomiting Pharmacy Consult (Consult Rx Perform Med Rec) 1 each MISCELLANE ONCE PRN PRN Reason: Consult order Sodium Chloride (0.9 % Sodium Chloride Flush 3 Ml Syringe) 3 ml IVFLUSH QSHIFT [facility] Last Admin: 06/14/22 15:04 Dose: 3 ml Documented By: RHETT Labs CBC & Chem 7: 06/13/22 05:56 06/13/22 05:56 Assessment and Plan (1) Left bundle branch block: Status: Acute Plan 62-year-old female with past medical history of opioid use disorder presents to the hospital after a fall with syncope Intractable pain of hands moving left hand pain with slightest touch, but appears to be improving somewhat no evidence of trauma, x-ray of the hand negative no edema, no erythema, no evidence of cellulitis afebrile, no leukocytosis arterial Dopplers negative neurology consult rec bilateral wrists splints during sleep, gabapentin 100mg BID EMG as outpatient if needed in a few weeks Syncope Initially thought to have syncope but Patient states that she tripped and fell, she did not pass out until after fall Abnormal EKG EKG shows bigeminy.? History of PVCs on prior EKG.? Causing falsely slow heart rate measurements on telemetry.? Seen by EKG will need outpatient echocardiogram, Holter due to left bundle branch block cardiology aware of increased trops. no further inpatient workup indicated Opioid use disorder continue methadone DVT prophylaxis:? Lovenox Attending - Dr. Royal Requires ongoing inpatient hospitalization for neurology, IV pain medication Quality Stroke Does the patient have a stroke diagnosis?: No VTE Prior VTE?: No VTE Risk Level:: Medical - moderate - high VTE Device Contraindication: Treatment Not Indicated VTE Drug Contraindication: N/A - Med Ordered
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
--- NOTE | 2022-06-14 19:18 | PC.NURSE ---
assumed care of pt at [address]
[2022-06-14] MEDS: Gabapentin 100 MG CAPSULE PO (21:29)
[2022-06-14] MEDS: Enoxaparin Sodium 40 MG/0.4 ML SYRINGE SUBCUT (21:31)
[2022-06-15] VITALS (8 sets, daily range): BP systolic 94–143; BP diastolic 41–64; PULSE 35–57; RESP 14–18; TEMP 36.1–36.6; O2SAT 97–99; BMI 18.3
--- NOTE | 2022-06-15 | CA_ITS ---
Acquisition Time: 2022-06-16 08:51:53 Total Exercise Time: 00:03:37 Test Indications: BRADYCARDIA EXCERCISE RESPONSE Medications: SEE EMAR Protocol: CONRAD Max HR: 142 BPM 91% of Pred: 156 BPM Max BP: 172/048 mmHG Max Work Load: 4.6 METS Exercise stress test with exercise 3 min 37 sec of Conrad protocol stage 1 ( after 2.5 min speed reduced to 1.2 MPH due to report of leg fatigue, achieving heart rate breifly at 111, 71% MPHR, without anginal symptoms, with ventricular bigeminy starting at peak exercise and continues through recovery - asymptomatic, with normotensive and positive chronotropic response to exercise, with nondiagnostic EKG for ischemia due to suboptimal heart rate and LBBB. Test reviewed with Dr Richardson. Note: Pt had some difficulty with treadmill as she was unable to hold on with left hand due to reported nerve pain . Referred By: Juan Richardson Overread By: IGNACIO GOLD
[2022-06-15] MEDS: DULoxetine HCl 20 MG CAPSULE.DR PO (08:44)
[2022-06-15] MEDS: 0.9 % Sodium Chloride Flush 3 ML SYRINGE IVFLUSH (08:44)
[2022-06-15] MEDS: Gabapentin 100 MG CAPSULE PO ×2 (08:44→20:54)
[2022-06-15] MEDS: methADONE HCl 20 MG/2 ML ORAL.CONC 65 MG PO (08:44)
--- NOTE | 2022-06-15 11:39 | P.PNIM_ITS ---
Subjective Subjective Date of Service: 06/15/22 Review of Systems Follow up fall hand pain bradycardia Physical Exam Vital Signs: Vital Signs: Last Vital Signs Temp 97.0 F 06/15/22 07:38 Pulse 35 L 06/15/22 11:11 Resp 16 06/15/22 07:38 BP 94/41 L 06/15/22 11:11 Pulse Ox 98 06/15/22 11:11 O2 Del Method 06/15/22 07:38 BMI result Body Mass Index 18.3 Appearing in no acute distress lung sounds are clear to auscultation heart regular rate rhythm, clear S1, S2 positive bowel sounds, abdomen is soft, nontender neuro patient is alert x3, no focal deficits scab to forehead Objective Data Active Medications Acetaminophen (Acetaminophen 325 Mg Tablet) 650 mg PO Q6H PRN PRN Reason: Pain, Mild (Pain Scale 1-3) Docusate Sodium (Docusate Sodium 100 Mg Capsule) 100 mg PO DAILY PRN PRN Reason: Constipation Duloxetine HCl (Duloxetine Hcl 20 Mg Capsule.Dr) 20 mg PO DAILY [facility] Last Admin: 06/15/22 08:44 Dose: 20 mg Documented By: JENNYFER Enoxaparin Sodium (Enoxaparin Sodium 40 Mg/0.4 Ml Syringe) 40 mg SUBCUT Q24H [facility] Last Admin: 06/14/22 21:31 Dose: 40 mg Documented By: NABIL Gabapentin (Gabapentin 100 Mg Capsule) 100 mg PO BID [facility] Last Admin: 06/15/22 08:44 Dose: 100 mg Documented By: JENNYFER Methadone HCl (Methadone Hcl 20 Mg/2 Ml Oral.Conc) 65 mg PO DAILY [facility] Last Admin: 06/15/22 08:44 Dose: 65 mg Documented By: JENNYFER Morphine Sulfate (Morphine Sulfate 4 Mg/Ml Cartridge) 4 mg IVPUSH Q4H PRN; Protocol PRN Reason: Pain, Severe (Pain Scale 7-10) Last Admin: 06/14/22 23:45 Dose: 4 mg Documented By: NABIL Ondansetron HCl (Ondansetron Hcl 4 Mg/2 Ml Vial) 4 mg IVPUSH Q8H PRN PRN Reason: Nausea and Vomiting Pharmacy Consult (Consult Rx Perform Med Rec) 1 each MISCELLANE ONCE PRN PRN Reason: Consult order Sodium Chloride (0.9 % Sodium Chloride Flush 3 Ml Syringe) 3 ml IVFLUSH QSHIFT CRISTIANE Last Admin: 06/15/22 08:44 Dose: 3 ml Documented By: JENNYFER Labs CBC & Chem 7: 06/13/22 05:56 06/13/22 05:56 Assessment and Plan (1) Left bundle branch block: Status: Acute Plan 62-year-old female with past medical history of opioid use disorder presents to the hospital after a fall with syncope Bradycardia Asymptomatic EKG shows bigeminy.? 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 Cardiology consulted heart rate remaining in 30s to 40s even with ambulation Intractable pain of hands moving left hand pain with slightest touch, but appears to be improving somewhat no evidence of trauma, x-ray of the hand negative no edema, no erythema, no evidence of cellulitis arterial Dopplers negative neurology consult rec bilateral wrists splints during sleep, gabapentin 100mg BID EMG as outpatient if needed in a few weeks Syncope Initially thought to have syncope but Patient states that she tripped and fell, she did not pass out until after fall Opioid use disorder continue methadone DVT prophylaxis:? Lovenox Attending - Dr. Royal Requires ongoing inpatient hospitalization for neurology, IV pain medication and now workup for junctional bradycardia Quality Stroke Does the patient have a stroke diagnosis?: No VTE Prior VTE?: No VTE Risk Level:: Medical - moderate - high VTE Device Contraindication: Treatment Not Indicated VTE Drug Contraindication: N/A - Med Ordered
[2022-06-15 13:57] LABS: TSH reflex Free T4 2.63 uIU/mL (0.32-4.0)
--- NOTE | 2022-06-15 14:18 | MHC.CM.PN ---
CM met with pt, she reports she receives her methadone from [address] [phone]
--- NOTE | 2022-06-15 14:29 | PM.PNCARD ---
Subjective Subjective Date of Service: 06/15/22 Interval history: Patient seen and examined at bedside. Currently asymptomatic. Heart rates have ranged from 30s to 40s with marked sinus bradycardia. She was started on methadone in November and did not have any issues with bradycardia previously that she can recall. Physical Exam Vital Signs: Last Vital Signs Temp 97.5 F 06/15/22 11:41 Pulse 39 L 06/15/22 11:41 Resp 16 06/15/22 11:41 BP 103/43 L 06/15/22 11:41 Pulse Ox 98 06/15/22 11:41 O2 Del Method 06/15/22 11:41 BMI result Body Mass Index 18.3 GENERAL APPEARANCE: in no acute distress, pleasant. NECK: no carotid bruit, no jugular venous distention. SKIN: Forehead abrasion and wound. HEART: no murmurs, bradycardic. LUNGS: clear to auscultation bilaterally. ABDOMEN: soft, nontender. EXTREMITIES: no edema. PERIPHERAL PULSES: equal. NEUROLOGIC: No gross deficits, AAO X 3 Objective Labs and Meds Result diagrams: 06/13/22 05:56 06/13/22 05:56 Lab results: Laboratory Results - last 24 hr 06/15/22 13:07 TSH 2.63 Progress Note: A&P Assessment and plan (1) Sinus bradycardia: Status: Acute (2) Left bundle branch block: Status: Acute Plan 62-year-old female who previously had opiate dependence and was changed to methadone in November. Presenting with a mechanical fall. She will initially noticed to have PVCs in a bigeminal pattern which have improved. Her telemetry is showing sinus bradycardia with heart rate 30s to 40s. She is clinically asymptomatic currently. Please ambulate her in the hallway to assess heart rate response to exercise. We will arrange an exercise stress test for her tomorrow. If her heart rate responds well to exercise and her blood pressure appropriately rises then she can continue methadone and there is no further workup required. On the other hand if her heart rate does not improve with exercise then we have to discuss about methadone use and if there is no alternatives then she may need discussion for pacemaker placement. Thank you for allowing me to participate in the care of your patient. Please feel free to contact me if you have any questions. Time Spent With Patient Time: Total time spent is greater than 50% in coordination of care (as documented) at patient's floor/unit and/or counseling patient: Progress Note: Quality Stroke Does the patient have a stroke diagnosis?: No Procedures Date of Service Date of Service: 06/15/22
[2022-06-15] MEDS: oxyCODONE HCl Immed Release 5 MG TABLET PO ×2 (14:58→20:54)
[2022-06-15] MEDS: Enoxaparin Sodium 40 MG/0.4 ML SYRINGE SUBCUT (21:50)
[2022-06-16] MEDS: 0.9 % Sodium Chloride Flush 3 ML SYRINGE IVFLUSH ×2 (00:36→08:07)
[2022-06-16] MEDS: Morphine Sulfate 4 MG/ML CARTRIDGE IVPUSH ×2 (00:47→08:07)
[2022-06-16 03:27] VITALS: BP 140/60; PULSE 49; RESP 18; TEMP 36.2; O2SAT 97
[2022-06-16 07:45] VITALS: BP 160/54; PULSE 48; RESP 16; TEMP 36.4; O2SAT 99
[2022-06-16] MEDS: DULoxetine HCl 20 MG CAPSULE.DR PO (08:05)
[2022-06-16] MEDS: Gabapentin 100 MG CAPSULE PO (08:05)
[2022-06-16] MEDS: methADONE HCl 20 MG/2 ML ORAL.CONC 65 MG PO (08:06)
--- NOTE | 2022-06-16 09:16 | PM.PNCARD ---
Subjective Subjective Date of Service: 06/16/22 Interval history: Patient seen and examined at bedside. She underwent exercise stress tests where her heart rate increases appropriately with exercise to her approximately 110 beats per minute. She had bigeminy towards the and. She was feeling fatigued and tired. No chest pain dizziness or syncope.. Physical Exam Vital Signs: Last Vital Signs Temp 97.5 F 06/16/22 07:45 Pulse 48 L 06/16/22 07:45 Resp 16 06/16/22 07:45 BP 160/54 H 06/16/22 07:45 Pulse Ox 99 06/16/22 07:45 O2 Del Method 06/16/22 07:45 BMI result Body Mass Index 18.3 GENERAL APPEARANCE: in no acute distress, pleasant. NECK: no carotid bruit, no jugular venous distention. SKIN: Forehead abrasion and wound. HEART: no murmurs, bradycardic. LUNGS: clear to auscultation bilaterally. ABDOMEN: soft, nontender. EXTREMITIES: no edema. PERIPHERAL PULSES: equal. NEUROLOGIC: No gross deficits, AAO X 3 Objective Labs and Meds Result diagrams: 06/13/22 05:56 06/13/22 05:56 Lab results: Laboratory Results - last 24 hr 06/15/22 13:07 TSH 2.63 Progress Note: A&P Assessment and plan (1) Sinus bradycardia: Status: Acute (2) Left bundle branch block: Status: Acute Plan 62-year-old female with mechanical fall. She was noted to be bradycardic with sinus bradycardia with some junctional beats. She has been on methadone for the last 6 months due to opioid use disorder. Methadone is the likely cause for bradycardia. She has not had any dizziness or lightheadedness here. She was sent for exercise stress test where she was able to exercise approximately 3 minute 37 seconds on modified Richard protocol achieving heart rate of 111 beats per minute and 4.6 metabolic went. Maximal blood pressure was 172/48. She had a ventricular bigeminy at peak exercise which continued into recovery. She had no chest pain. Mostly leg fatigue and weakness was reason for stopping. Her heart rate clearly went up with exercise and I think she can continue methadone currently. She has no indication for permanent pacemaker placement currently. She can follow up with us as needed. Thank you for allowing me to participate in the care of your patient. Please feel free to contact me if you have any questions. Time Spent With Patient Time: Total time spent is greater than 50% in coordination of care (as documented) at patient's floor/unit and/or counseling patient: Progress Note: Quality Stroke Does the patient have a stroke diagnosis?: No Procedures Date of Service Date of Service: 06/16/22
[2022-06-16 11:28] VITALS: BP 135/60; PULSE 48; RESP 16; TEMP 36.1; O2SAT 98
--- NOTE | 2022-06-16 12:09 | PM.DS ---
DS: Providers Provider Date of Service: 06/16/22 Date of admission: 06/15/22 15:14 Primary care physician: Unknown Physician Consults: 06/12/22 07:53 Consult to Cardiology Routine Consulting Provider: Burke Kaur Reason for consultation: Syncope, abnormal EKG Has provider been notified: No 06/13/22 09:35 Consult to Neurology Routine Consulting Provider: [facility] Reason for consultation: b/l hand paresthesias Has provider been notified: No 06/14/22 16:14 Consult to Psychiatry Routine Consulting Provider: [facility] Reason for consultation: anxiety, previously on anti anxiety medications Has provider been notified: No 06/15/22 07:35 Consult to Care Team Routine Comment: Reason for consultation: o/p referals 06/15/22 11:31 Consult to Cardiology Routine Consulting Provider: Juan Richardson Reason for consultation: bradycardia Has provider been notified: No DS: Diagnosis Discharge Diagnosis (1) Sinus bradycardia: Status: Acute (2) Left bundle branch block: Status: Acute DS: Summary Hospital Course Hospital Course: from initial hpi: Chief Complaint: syncope 62-year-old female with past medical history of opioid use disorder on methadone presents to the hospital after a fall.? Patient reports that she tripped on a rock and fell face forward hitting her head.? She does report that she loss consciousness but is unclear if she lost consciousness before falling or after falling.? She reports that she now has severe unbearable pain in her hands bilaterally.? She denies injecting any type of drugs in her hands, she reports severe shooting burning pain that is intermittent in her hands bilaterally.? She feels that her hands skin is being scraped off.? She denies any fever no chills, no chest pain, no abdominal pain, no nausea or vomiting, no palpitations, no shortness of breath.? No urinary symptoms and no lower extremity edema.? On arrival to the ED patient hemodynamically stable no significant abnormal vitals Labs are significant for WBC count of 10.3, hemoglobin of 13.9, hematocrit of 38.9, sodium of 130, labs otherwise unremarkable, UDS is positive for opioids as well as fentanyl and marijuana Although some of the images do have motion artifact but imaging including head CT, abdominal pelvic CT, chest CT, face CT, cervical spine CT, as well as hand wrist x-ray and forearm x-ray are negative for any acute abnormality.? Patient is in extreme excruciating pain bilateral hands not responding to p.o. pain meds, therefore she will be admitted for further management. hospital course: Patient was admitted for fall in bradycardia, initially thought to have lost consciousness, but later clarified that she just tripped. Her EKG showed bigeminy and occasional junctional bradycardia, she was seen by Cardiology recommended stress test, heart rate improved appropriately with stress, therefore, not considered to be etiology of fall and safety continue on current dose of methadone. Patient was also complaining of intractable pain in her hands seen by neurology recommended bilateral splints during sleep and EMG as outpatient. For her continuous opioid dependence she was continued on methadone. Patient now medically stable for discharge. Time Spent with Patient Time attestation: Total time spent providing and/or coordinating discharge services: Discharge coordination time: Greater than 30 minutes Quality: Safe Use of Opioids Does Pt have an Active Cancer Diagnosis on the Problem List?: No Quality: Stroke Does the patient have a stroke diagnosis?: No Physical Exam Vital Signs: Vital Signs: Last Vital Signs Temp 97 F 06/16/22 11:28 Pulse 48 L 06/16/22 11:28 Resp 16 06/16/22 11:28 BP 135/60 06/16/22 11:28 Pulse Ox 98 06/16/22 11:28 O2 Del Method 06/16/22 11:28 BMI result Body Mass Index 18.3 ? Appearing in no acute distress ?lung sounds are clear to auscultation ?heart regular rate rhythm, clear? S1, S2 ?positive bowel sounds, abdomen is soft, nontender ?neuro patient is alert x3, no focal deficits ?scab to forehead DS: Data Data Completed and Pending Labs on day of discharge: Laboratory Results - last 24 hr 06/15/22 13:07 TSH 2.63 Discharge Plan Discharge Patient Disposition: Home, Self-Care Discharge Diagnosis: cony, fall Referrals: Physician,Unknown J [Primary Care Provider] - 1 Week Discharge Medications: Continued methadone [Methadone Intensol] 10 mg/mL Concentrate 65 mg PO DAILY Discharge Orders: Discharge Order (Routine); Ordered 06/16/22 Ordered By: Leonardo Santos Diet: Advance to usual diet Activity on Discharge: As tolerated Stand Alone Forms: Patient Portal Discharge page Care Plan Goals: prevent falls Health Concerns: falls Plan of Treatment: careful ambulation Assessment: see above
--- NOTE | 2022-06-16 12:22 | MHC.CM.PN ---
Pt has been medically cleared for discharge today. She will discharge home (self-care). [facility] shuttle will transport at 1:30 pm. IMM has been addressed.
[2022-06-16 12:52] VITALS: BP 135/60; PULSE 48; O2SAT 98
--- NOTE | 2022-06-16 12:52 | MHC.CM.PN ---
CM met with Patient at bedside and addressed IMM with her, providing her with the original and placing a copy on the chart. Per Patient's request, dc was set up for today at 1:25 PM for Patient to return home by [facility], and now Patient is requesting to go home between 4 & 5 PM, when she will feel things are better in place for her to return home. 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 PT is recommending home with PT but Patient is not eligible for VNA because she has not had a PCP for the past 20 years. Fellow CM offered Patient a list of area PCPs, who may be accepting new Patients, but Patient declined to accept the list. Earlier in her stay, Patient had expressed an interest in STR/SNF. Both [facility] and [facility](the only 2 Critical access hospitals that accept Patients on Methadone) were referred to ([facility] denied and [facility] was following for bed availability)but Patient indicated today that she does NOT want to go to SNF/STR; she wants to go home. Patient expressed knowledge of [facility] and CM confirmed that Patient can contact [facility] and request that she be assessed for eligible home services. CM explained to Patient that [facility] will want to know who her PCP is and will ask many questions related to her income and financial status that CM does not have knowledge of. CM expressed the urgency of establishing herself with a new PCP [facility], which may open more community options for her.Patient excused this CM and is agreeable to return home later today by taxi.
--- NOTE | 2022-06-16 13:11 | MHC.CM.PN ---
Per RN, Patient is now indicating that she IS ready to go home now and she has requested that the taxi be contacted to come and get her.
== END 2022-06-16 14:16 | disposition home or self-care (01) | DRG 309 ==
LOC: HO.ED 20:22 → HO.EDOVER 22:29 → HO.S3 06-14 20:13
PROVIDERS: Nurse Practitioner Acute Care; Physician Assistant Medical; Admitting Provider Internal Medicine; Emergency Provider Student in an Organized Health Care Education/Training Program; Visit Provider Internal Medicine
DX: I49.3 Ventricular premature depolarization (principal); F11.20 Opioid dependence, uncomplicated; R00.1 Bradycardia, unspecified; R00.8 Other abnormalities of heart beat; F41.1 Generalized anxiety disorder; T40.3X5A Adverse effect of methadone, initial encounter; G62.9 Polyneuropathy, unspecified; I44.7 Left bundle-branch block, unspecified; Z20.822 Contact with and (suspected) exposure to COVID-19; Z56.0 Unemployment, unspecified; Z87.891 Personal history of nicotine dependence; Z88.2 Allergy status to sulfonamides; Z88.1 Allergy status to other antibiotic agents
CPT/HCPCS: 36415; 70450; 70486; 71260; 72125; 73090; 73110; 73130; 74177; 80048; 80053; 80307; 81001; 82077; 82550; 83735; 84443; 84484; 85025; 85027; 85610; 87635; 90471; 90715; 93005; 93017; 93930; 96365; 96366; 96375; 96376; 97116; 97162; 99218; 99285; J1170; J1650; J2270; J3010; J3475; Q9967

== ENCOUNTER 2024-05-20 15:22 | Emergency (ER) | payer MEDICARE, SELFPAY ==
--- NOTE | ~2024-05-20 | XR_ITS ---
EXAMINATION: XR CHEST CLINICAL INFORMATION: Orthopnea COMPARISON: CT chest from 12/15/2021, chest radiograph from 11/26/2021 TECHNIQUE: 2 views of the chest were obtained. FINDINGS: No focal consolidation. No pneumothorax. Trachea is midline. Cardiac mediastinal silhouette is enlarged. No large pleural effusion. Osseous structures are intact. Soft tissues are unremarkable. XR/XR chest 2V IMPRESSION: No acute cardiopulmonary process.
--- NOTE | ~2024-05-20 | US_ITS ---
EXAMINATION: US VENOUS ULTRASOUND WITH DOPPLER LOWER EXTREMITY, BILATERAL CLINICAL INFORMATION: Leg swelling COMPARISON: Ultrasound 06/30/2010 TECHNIQUE: Ultrasound of the deep veins is performed from the hip to the calf with compression sonography and color and pulse Doppler assessment. Spectral analysis with color-flow imaging is performed. FINDINGS: RIGHT: There is normal venous compression and respiratory variation and augmented flow. The visualized common femoral vein, superficial femoral vein, profunda femoral vein, popliteal vein, and the trifurcation region shows no evidence of deep venous thrombosis. There is no significant popliteal fossa cyst. Right groin lymph nodes measuring 2.5 x 0.6 x 1.1 cm, and 1.5 x 0.8 x 0.9 cm. LEFT: There is normal venous compression and respiratory variation and augmented flow. The visualized common femoral vein, superficial femoral vein, profunda femoral vein, popliteal vein, and the trifurcation region shows no evidence of deep venous thrombosis. There is no significant popliteal fossa cyst. . Left groin lymph nodes measuring 1 x 0.6 cm. If the patient's symptoms persist, followup ultrasound in 5 days 7 days might be of value to exclude proximal propagation from a non-visualized calf vein. US/US venous duplex LE BI IMPRESSION: No DVT demonstrated in the bilateral lower extremity. Nonspecific bilateral groin lymph nodes.
[2024-05-20 15:34] VITALS: BP 155/59; PULSE 57; RESP 18; TEMP 36.3; O2SAT 96; BMI 21.9
[2024-05-20 16:02] LABS: MANUAL DIFF FLAG NO
[2024-05-20 16:04] LABS: Basophils Percent Auto 0.8 % (0-2); Eosinophils Absolute Auto 0.2 X10*3/uL (0.0-0.4); Eosinophils Percent Auto 3.4 % (0-4); Hematocrit 33.2 % (37.0-47.0); Hemoglobin 11.4 g/dl (12.0-16.0); Imm Gran Abs Auto 0.01 X10*3/uL (0.00-0.03); Imm Gran Pct Auto 0.2 % (0.0-0.4); Lymphocytes Absolute Auto 1.9 X10*3/uL (1.2-4.9); Lymphocytes Percent Auto 36.7 % (20-40); Mean Corpuscular HGB Conc 34.3 g/dl (31.0-35.0); Mean Corpuscular Hemoglobin 30.5 pg (27.0-33.0); Mean Corpuscular Volume 88.8 fL (80.0-98.0); Mean Platelet Volume 9.9 fL (9.4-12.3); Monocytes Absolute Auto 0.5 X10*3/uL (0.1-1.2); Monocytes Percent Auto 9.3 % (2-11); Neutrophils Absolute Auto 2.6 x10*3/uL (2.0-8.3); Neutrophils Percent Auto 49.6 % (45-73); Platelet Count 188 X10*3/uL (160-400); Red Blood Count 3.74 X10*6/uL (4.20-5.50); Red Cell Distribution Width 12.6 % (11.0-16.0); White Blood Count 5.3 X10*3/uL (4.8-10.8)
--- NOTE | 2024-05-20 16:06 | ED_ITS ---
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 She reports some orthopnea and cough for months. No chest pain, fevers, chills, SOB, vomiting, diarrhea, abdominal pain. She reports history of Hep C treated over 20 yrs ago. She denies alcohol use. Related Data Home Medications ?Medication ?Instructions ?Recorded ?Confirmed methadone 10 mg/mL oral 65 mg PO DAILY 06/11/22 06/11/22 concentrate (Methadone Intensol) Allergies Allergy/AdvReac Type Severity Reaction Status Date / Time Sulfa (Sulfonamide Allergy Intermediate SWELLING Verified 05/20/24 15:46 Antibiotics) From FLAG[facility] Allergy Unknown SWELLING Uncoded 06/14/22 21:16 Review of Systems 2 Review of Systems: Yes all other systems are reviewed and are negative Constitutional: Constitutional: Reports no additional constitutional complaints, Denies body ache(s), Denies chills, Denies fever(s), Denies headache(s) and Denies weakness Eyes: Eyes: Reports no additional eye complaints and Denies change in vision ENT: Reports system reviewed and no additional complaints, except as documented, Denies dizziness, Denies headache(s), Denies nasal congestion, Denies nasal discharge and Denies neck pain Cardiovascular: Cardiovascular: Reports no additional cardiovascular complaints, Denies chest pain, Reports leg edema, Denies dyspnea and Reports orthopnea Respiratory: Respiratory: Reports no additional respiratory complaints, Reports cough and Denies dyspnea Gastrointestinal: Gastrointestinal: Reports no additional gastrointestinal complaints, Denies abdominal pain, Denies diarrhea, Denies nausea and Denies vomiting Genitourinary: Genitourinary: Reports no additional female genitourinary complaints and Denies urinary incontinence Musculoskeletal: Musculoskeletal: Reports no additional musculoskeletal complaints, Denies back pain, Denies arthralgias, Denies joint swelling, Denies neck pain, Denies numbness and Denies tingling Integumentary/Breasts: Skin/Breast: Reports system reviewed and no additional complaints, except as docu and Denies rash Neurologic: Reports system reviewed and no additional complaints, except as documented, Denies Abnormal speech present, Denies dizziness, Denies headache(s), Denies numbness, Denies tingling and Denies weakness PMFSH Past Medical History Attestation statement: The following information was validated with the patient. Source: old records reviewed and nursing notes reviewed Medical History Trigeminal neuralgia History of thoracic outlet syndrome Surgical History History of hysterectomy Family History Family History Other No family history of coronary artery disease Social History Social History Household Members: None Housing: House Alcohol intake: never Patient Tobacco Use Status: Former Tobacco user Tobacco use type: Cigarette Substance Use Type: Marijuana Advance Directives: No Advance Directives Information Provided: No Do you have a plan to hurt others: No Plan service: No Current occupational status: unemployed Physical Exam ED Vital Signs: Vital Signs - 24 hr 05/20/24 15:34 Temperature 97.3 F Pulse Rate 57 Respiratory Rate 18 Blood Pressure 155/59 H Pulse Oximetry 96 Oxygen Delivery Method Room Air BMI result Body Mass Index 21.9 Const General: cooperative, healthy appearing, comfortable and no acute distress Orientation/consciousness: patient oriented x3 Limitations: no limitations HENMT Head: Yes normal to inspection Ears: hearing grossly normal bilaterally General nose exam: Normal external nose present Face and sinus: Yes normal facial exam Mouth: Normal oral and palatal mucosa present Throat: Yes posterior oropharynx normal Eyes General: appearance normal, both eyes and all related structures Pupils: Equal, round and reactive pupils present Neck Neck: Yes normal visual inspection Chest Chest palpation & inspection: normal inspection of the chest Resp Effort & Inspection: normal respiratory effort Auscultation: clear to auscultation bilaterally Cardio Rate: regular rate Rhythm: regular rhythm Peripheral pulses: Peripheral pulses 2+ throughout GI Inspection: Yes normal to inspection Palpation (GI): Soft to palpation and nontender Auscultation: normal bowel sounds Back/Spine/Pelvis Thoracic/Lumbar Spine: thoracic and lumbar spine normal to inspection Skin General skin exam: no rashes or lesions noted Neuro General: patient oriented x3, no focal motor deficits and normal sensation to monofilament Cranial nerves: Yes Equal, round and reactive pupils present Cognition (Neuro): normal cognition Speech: No Abnormal speech present Gait exam (Neuro): Normal gait present Motor exam (neuro): 5/5 motor strength present throughout Extrem Other: 2+ pitting edema bilateral LE General: Yes normal to inspection Course Course Course Narrative: RME: Done by Kelvin Real. 64 yold female presents to the ED for bilateral leg swelling without any trauma. Patient denies any chest pain , shortness of breath, redness or bluish black discloration. labs and ultrasound of lower extremiteis ordered. 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 She reports some orthopnea and cough for months. No chest pain, fevers, chills, SOB, vomiting, diarrhea, abdominal pain. She reports history of Hep C treated over 20 yrs ago. She denies alcohol use. 2+ BL LE. LS CTA. VSS Will obtain labs, UA, EKG, CXR Differential Diagnosis Differential Diagnoses: The differential diagnosis associated with the presentation includes CHF, liver disease less likely dvt Admission/Observation Consideration of admission/observation: Escalation of care including admission/observation considered Lab Data [facility] Lab Attestation statement: I reviewed the patient's lab results. 05/20/24 15:58 05/20/24 15:58 Labs: Lab Results 05/20/24 Range/Units 15:58 WBC 5.3 (4.8-10.8) X10*3/uL RBC 3.74 L D (4.20-5.50) X10*6/uL Hgb 11.4 L D (12.0-16.0) g/dl Hct 33.2 L D (37.0-47.0) % MCV 88.8 (80.0-98.0) fL MCH 30.5 (27.0-33.0) pg MCHC 34.3 (31.0-35.0) g/dl RDW 12.6 (11.0-16.0) % Plt Count 188 (160-400) X10*3/uL MPV 9.9 (9.4-12.3) fL Immature Gran % (Auto) 0.2 (0.0-0.4) % Neut % (Auto) 49.6 (45-73) % Lymph % (Auto) 36.7 (20-40) % [place] % (Auto) 9.3 (2-11) % Eos % (Auto) 3.4 (0-4) % Baso % (Auto) 0.8 (0-2) % Lymph # (Auto) 1.9 (1.2-4.9) X10*3/uL [place] # (Auto) 0.5 (0.1-1.2) X10*3/uL Eos # (Auto) 0.2 (0.0-0.4) X10*3/uL Baso # (Auto) 0.0 (0.0-0.2) X10*3/uL Abs Immat Gran (auto) 0.01 (0.00-0.03) X10*3/uL Absolute Neuts (auto) 2.6 (2.0-8.3) x10*3/uL Absolute Nucleated RBC 0.000 (0.0-0.012) X10*3/uL Nucleated RBC % (auto) 0.0 (0.0-0.2) /100WBC Sodium 135 (135-145) mmol/L Potassium 4.6 (3.3-5.1) mmol/L Chloride 95 L (96-108) mmol/L Carbon Dioxide 30 H (22-29) mmol/L Anion Gap 15 (12-20) BUN 5 L (9-16) mg/dL Creatinine 0.71 (0.5-1.4) mg/dL Estim Creat Clear Calc 75.7 Estimated GFR > 60 Random Glucose 86 (60-115) mg/dL Calcium 9.3 (8.4-10.2) mg/dL Total Bilirubin 0.4 (0.0-1.0) mg/dL AST 38 H (5-31) U/L ALT 38 H (0-31) U/L Alkaline Phosphatase 47 (39-117) U/L B-Natriuretic Peptide 47 (<100) pg/mL Total Protein 6.4 L (6.5-8.0) g/dL Albumin 4.0 (3.5-5.0) g/dL Independent Interpretation I performed an independent interpretation of an: EKG and Plain X-Ray Interpretation: EKG shows sinus bradycardia with a rate of 49 with a left bundle-branch block which is not new Radiology Impression Discussion of test interpretation with radiology: I have reviewed the radiologist's reading. Discharge Plan Discharge Clinical Impression: Leg swelling Patient Disposition: Left W/O Completing Treatment Prescriptions: No Action methadone [Methadone Intensol] 10 mg/mL Concentrate 65 mg PO DAILY Discharge Date/Time: 05/20/24 18:10
[2024-05-20 16:18] LABS: Alanine Aminotransferase 38 U/L (0-31); Alkaline Phosphatase 47 U/L (39-117); Anion Gap 15 (12-20); Aspartate Amino Transferase 38 U/L (5-31); Bilirubin Total 0.4 mg/dL (0.0-1.0); Blood Urea Nitrogen 5 mg/dL (9-16); Calcium 9.3 mg/dL (8.4-10.2); Carbon Dioxide 30 mmol/L (22-29); Chloride 95 mmol/L (96-108); Creatinine Clr Calc Pharmacy 75.7; Estimated Glomerular Filt Rate > 60; Glucose Random 86 mg/dL (60-115); Potassium 4.6 mmol/L (3.3-5.1); Sodium 135 mmol/L (135-145); Total Protein 6.4 g/dL (6.5-8.0)
[2024-05-20 16:24] LABS: B Type Natriuretic Peptide 47 pg/mL (<100)
--- NOTE | 2024-05-20 17:33 | ECG_ITS ---
Test Reason : LEG SWELLING Blood Pressure : / mmHG Vent. Rate : 049 BPM Atrial Rate : 049 BPM P-R Int : 202 ms QRS Dur : 148 ms QT Int : 548 ms P-R-T Axes : 082 -59 079 degrees QTc Int : 495 ms Sinus bradycardia Left axis deviation Left bundle branch block Abnormal ECG When compared with ECG of 14-JUN-2022 10:12, T wave inversion no longer evident in Inferior leads T wave inversion less evident in Lateral leads Referred By: Coty Mulligan Electronically Signed By:CRUZ SOLANO MD
--- NOTE | 2024-05-20 18:07 | PC.NURSE ---
pt was leaving the ed and encouraged to return to wait for the rest of her results, returned to the bed and then immediately left, steady gait, states she does not want to wait
== END 2024-05-20 18:10 | disposition left against medical advice (07) ==
PROVIDERS: Physician Assistant; Emergency Provider Internal Medicine
DX: M79.89 Other specified soft tissue disorders (principal); R05.9 Cough, unspecified; R06.01 Orthopnea; Z87.891 Personal history of nicotine dependence
CPT/HCPCS: 36415; 71046; 80053; 83880; 85025; 93005; 93970; 99283; 99284

== ENCOUNTER → 2024-05-20 17:33 | Outpatient (BNV) | payer MEDICARE, SELFPAY | PROVIDERS: Emergency Provider Internal Medicine; Visit Provider Internal Medicine Cardiovascular Disease | DX: R94.31 Abnormal electrocardiogram [ECG] [EKG] (principal) | CPT/HCPCS: 93010 ==

== ENCOUNTER 2024-06-14 01:30 | Emergency (ER) | payer MEDICARE, SELFPAY ==
--- NOTE | 2024-06-14 01:30 | PC.NURSE ---
pt biba from the street, a&ox4, respirations even and unlabored. pt reports using 5 bags of heroin, reports chronic heroin use x40 years. reports she fell asleep in car when [place] PD arrived and had her come to [facility]. pt changed over by security, belongings placed in decon. vss.
[2024-06-14 01:34] VITALS: BP 117/63; BP 93/40; PULSE 70; PULSE 86; RESP 18; TEMP 36.4; O2SAT 100; O2SAT 98; BMI 21.9
--- NOTE | 2024-06-14 03:22 | PC.NURSE ---
pt requesting this RN to call friend Andrew, pt friend reports he will come picker tender pt to provide safe ride home.
--- NOTE | 2024-06-14 03:35 | ED.GENADULT ---
HPI - General Adult General Chief complaint: Overdose Stated complaint: SLEEPING IN CAR ON [place],ADMITS TO DRUG & ALC USE Time Seen by Provider: 06/14/24 03:26 Source: patient and EMS Mode of arrival: ambulatory Limitations: no limitations History of Present Illness ED Provider: Dr. Shelli Alvarez HPI narrative: Patient comes to the emergency room by ambulance. According to PD, patient was found in the street using heroin. Patient was a bit combative and brought to emergency room. Patient denies SI or HI. Denies any falls or injuries Related Data Home Medications ?Medication ?Instructions ?Recorded ?Confirmed methadone 10 mg/mL oral 65 mg PO DAILY 06/11/22 06/11/22 concentrate (Methadone Intensol) Allergies Allergy/AdvReac Type Severity Reaction Status Date / Time Sulfa (Sulfonamide Allergy Intermediate SWELLING Verified 06/14/24 01:44 Antibiotics) From [facility]YL Allergy Unknown SWELLING Uncoded 06/14/24 01:44 Review of Systems Review of Systems: Constitutional : No Weight loss, No Fever, No Chills, No Night Sweats, No Fatigue, No Malaise ENT/Mouth : No Hearing loss, No Ear Pain, No Nasal Congestion, No Sinus Pain, No Hoarseness, No sore throat, No Rhinorrhea, No Swallowing Difficulty Eyes: No Eye Pain, No Swelling, No Redness, No Foreign Body, No Discharge, No Vision Changes Cardiovascular : No Chest Pain, No SOB, No Dyspnea on Exertion, No Orthopnea, No Edema, No Palpitations Respiratory : No Cough, No Sputum, No Wheezing, No Smoke Exposure, No Dyspnea Gastrointestinal : No Nausea, No Vomiting, No Diarrhea, No Constipation, No abdominal Pain, No Hematochezia, No Melena Genitourinary : no irregular bleeding, No Dysuria, No Urinary Frequency, No Hematuria, No Urinary Incontinence, No Urgency, No Flank Pain, No Urinary Flow Changes, No Hesitancy Musculoskeletal : No joint pain, No Myalgias, No Joint Swelling Skin : No Skin Lesions, No rash Neuro : No Weakness, No Numbness, No Paresthesias, No Loss of Consciousness, No Dizziness, No Headache Psych : No Anxiety/Panic, No Depression, No SI/HI/AH/VH, do using drugs Heme/Lymph: No Bruising, No Bleeding,No Lymphadenopathy Endocrine : No Polyuria, No Polydipsia, No Temperature Intolerance PMF Past Medical History Medical History Trigeminal neuralgia History of thoracic outlet syndrome Surgical History History of hysterectomy Family History Family History Other No family history of coronary artery disease Social History Social History Household Members: None Housing: House Alcohol intake: never Patient Tobacco Use Status: Former Tobacco user Tobacco use type: Cigarette Smoked in Last 30 Days: No Use of substances other than those prescribed or required for medical reasons: Yes Substance Use Type: Heroin Substance Use Frequency: Daily Advance Directives: No Advance Directives Information Provided: Yes Do you have a plan to hurt others: No Plan service: No Current occupational status: unemployed Physical Exam ED Vital Signs: Vital Signs - 24 hr 06/14/24 01:34 Temperature 97.5 F Pulse Rate 86 Respiratory Rate 18 Blood Pressure 93/40 L Pulse Oximetry 98 Oxygen Delivery Method Room Air BMI result Body Mass Index 21.9 Const Other: Appearance: Alert. Oriented X3. No acute distress. Eyes: Pupils equal, round and reactive to light. ENT: Pharynx normal. Neck: Normal inspection. Neck supple. No lymph nodes noted. No crepitus CVS: Normal heart rate and rhythm. Pulses normal. Normal S1 and S2 Respiratory: No respiratory distress. Breath sounds normal. No Wheezing. No rales Abdomen: Soft and nontender. No rigidity. No distention. Skin: Skin warm and dry. Normal skin color. Normal skin turgor. Extremities: No lower extremity edema. No Lacerations. No Rash Neuro: Oriented X 3. No motor deficit. No sensory deficit. Moving all extremities. No slurred speech. CN 2 through 12 grossly intact Psych: calm, cooperative, normal affect Medical Decision Making Medical Decision Making MDM Narrative: When I spoke to the patient, patient is awake, alert and oriented x3, calm and cooperative. -patient admits to using drugs, denies SI or HI. -patient has a friend who will be picking her up shortly. Differential Diagnosis Differential Diagnoses: The differential diagnosis associated with the presentation includes (Accidental Overdose, alcohol intoxication) Discharge Plan Discharge Clinical Impression: Polysubstance abuse Patient Disposition: Home, Self-Care Instructions: Polysubstance Abuse (ED) Additional Instructions: Please follow-up with your primary care physician tomorrow. If you have any worsening or new symptoms, please return to the emergency room or call 911 Prescriptions: No Action methadone [Methadone Intensol] 10 mg/mL Concentrate 65 mg PO DAILY Print Language: [place]
[2024-06-14] MEDS: Naloxone HCl Nasal TAKE HOME 4 MG SPRAY 8 MG NOSTRILALT (03:44)
--- NOTE | 2024-06-14 04:05 | PC.NURSE ---
pt friend at bedside to bring pt home. pt escorted to decon for items.
[2024-06-14 04:07] VITALS: BP 98/59; PULSE 54; RESP 17; TEMP 37.2; O2SAT 98
== END 2024-06-14 04:08 | disposition home or self-care (01) ==
PROVIDERS: Emergency Provider Emergency Medicine
DX: F19.10 Other psychoactive substance abuse, uncomplicated (principal)
CPT/HCPCS: 99284; 99285

== ENCOUNTER 2025-01-04 18:52 | Emergency (ER) | payer MEDICARE, SELFPAY ==
[2025-01-04 19:01] VITALS: BP 150/52; BP 196/88; PULSE 75; PULSE 99; RESP 16; TEMP 36.8; O2SAT 99; BMI 17.3
--- NOTE | 2025-01-04 19:09 | ECG_ITS ---
Test Reason : AMS Blood Pressure : */* mmHG Vent. Rate : 70 BPM Atrial Rate : 70 BPM P-R Int : 180 ms QRS Dur : 152 ms QT Int : 452 ms P-R-T Axes : 90 -62 105 degrees QTcB Int : 488 ms Normal sinus rhythm Right atrial enlargement Left axis deviation Left bundle branch block Abnormal ECG When compared with ECG of 20-May-2024 17:33, T wave inversion more evident in Lateral leads Referred By: Tara Singh Electronically Signed By: Juan Richardson
[2025-01-04 19:29] LABS: MANUAL DIFF FLAG NO
[2025-01-04 19:31] LABS: Basophils Percent Auto 0.5 % (0-2); Eosinophils Absolute Auto 0.1 X10*3/uL (0.0-0.4); Eosinophils Percent Auto 1.3 % (0-4); Hematocrit 36.5 % (37.0-47.0); Hemoglobin 12.6 g/dl (12.0-16.0); Imm Gran Abs Auto 0.01 X10*3/uL (0.00-0.03); Imm Gran Pct Auto 0.2 % (0.0-0.4); Lymphocytes Absolute Auto 1.6 X10*3/uL (1.2-4.9); Lymphocytes Percent Auto 29.3 % (20-40); Mean Corpuscular HGB Conc 34.5 g/dl (31.0-35.0); Mean Corpuscular Hemoglobin 31.8 pg (27.0-33.0); Mean Corpuscular Volume 92.2 fL (80.0-98.0); Mean Platelet Volume 11.4 fL (9.4-12.3); Monocytes Absolute Auto 0.5 X10*3/uL (0.1-1.2); Monocytes Percent Auto 8.8 % (2-11); Neutrophils Absolute Auto 3.4 x10*3/uL (2.0-8.3); Neutrophils Percent Auto 59.9 % (45-73); Platelet Count 167 X10*3/uL (160-400); Red Blood Count 3.96 X10*6/uL (4.20-5.50); Red Cell Distribution Width 14.1 % (11.0-16.0); White Blood Count 5.6 X10*3/uL (4.8-10.8)
[2025-01-04 19:36] LABS: Prothrombin Time 11.4 SEC (10.9-12.4)
[2025-01-04 19:39] LABS: Partial Thromboplastin Time 31.8 SEC (26.0-36.8)
[2025-01-04 19:48] LABS: Alanine Aminotransferase 38 U/L (0-31); Albumin Level 4.3 g/dL (3.5-5.0); Alkaline Phosphatase 49 U/L (39-117); Anion Gap 18 (12-20); Aspartate Amino Transferase 70 U/L (5-31); Blood Urea Nitrogen 9 mg/dL (9-16); Calcium 9.6 mg/dL (8.4-10.2); Carbon Dioxide 25 mmol/L (22-29); Chloride 104 mmol/L (96-108); Creatinine Clr Calc Pharmacy 45.4; Estimated Glomerular Filt Rate > 60; Glucose Random 112 mg/dL (60-115); Magnesium 1.8 mg/dL (1.6-2.6); Potassium 3.1 mmol/L (3.3-5.1); Sodium 144 mmol/L (135-145); Total Protein 7.4 g/dL (6.5-8.0)
[2025-01-04 19:56] LABS: Troponin-I High Sensitivity 4.6 ng/L (<3.5-17.0)
[2025-01-04 20:13] LABS: Influenza A PCR NEGATIVE (Negative); Influenza B PCR NEGATIVE (Negative); Resp Syncy Virus RNA Qual PCR NEGATIVE (Negative); SARS COV2 PCR INHOUSE NEGATIVE (Negative)
[2025-01-04 21:55] LABS: Appearance Urine Clear; Color Urine Yellow; Glucose Urine UA Negative (Negative); Leukocyte Esterase Urine Trace (Negative); Nitrite Urine Negative (Negative); PH 6.5 (5.0-9.0); Specific Gravity - Urine <= 1.005 (1.005-1.025); UMIC TRIGGER UACC YES; Urine Blood Negative (Negative); Urine Ketones Negative (Negative); Urine Protein Negative (Neg-Trace)
[2025-01-04 21:58] LABS: Bacteria Urine None Seen (None Seen); Hyaline Casts Urine 0-2 /LPF (0-2); RBC Urine 0-2 /HPF (0-2); Squamous Epithelial Cell Urine 0-2 /HPF (0-2); WBC Urine 0-5 /HPF (0-5)
[2025-01-04 22:05] LABS: Amphetamine Screen Urine Not Detected (Not Detect); Barbiturates, Urine Not Detected (Not Detect); Benzodiazepines Screen Urine POSITIVE (Not Detect); Buprenorphine Scr Not Detected (Not Detect); Cannabinoid Screen Urine POSITIVE (Not Detect); Cocaine Screen Urine Not Detected (Not Detect); Fentanyl, urine POSITIVE (Not Detect); Methadone Screen, Urine Positive (Not Detect); Opiate Screen Urine Not Detected (Not Detect); Oxycodone Screen Urine Not Detected (Not Detect); Phencyclidine Screen Urine Not Detected (Not Detect)
--- NOTE | 2025-01-04 22:13 | ED.GENADULT ---
HPI - General Adult General Chief complaint: ETOH/Substance Use Stated complaint: AMS Time Seen by Provider: 01/04/25 22:07 Source: patient and EMS Mode of arrival: EMS Limitations: no limitations History of Present Illness ED Provider: Dr. Shelli Alvarez HPI narrative: Patient comes to the emergency room via ambulance. According to EMS, patient was trying to break into her neighbor's house. Initially patient was confused. Patient admits that she used Klonopin and marijuana. EMS states that CHD was on the scene, known to the patient. Patient is not SI or HI. Related Data Home Medications ?Medication ?Instructions ?Recorded ?Confirmed methadone 10 mg/mL oral 65 mg PO DAILY 06/11/22 06/11/22 concentrate (Methadone Intensol) Allergies Allergy/AdvReac Type Severity Reaction Status Date / Time Sulfa (Sulfonamide Allergy Intermediate SWELLING Verified 01/04/25 19:10 Antibiotics) From FLAGYL Allergy Unknown SWELLING Uncoded 06/14/24 01:44 Review of Systems Review of Systems: Constitutional : No Weight loss, No Fever, No Chills, No Night Sweats, No Fatigue, No Malaise ENT/Mouth : No Hearing loss, No Ear Pain, No Nasal Congestion, No Sinus Pain, No Hoarseness, No sore throat, No Rhinorrhea, No Swallowing Difficulty Eyes: No Eye Pain, No Swelling, No Redness, No Foreign Body, No Discharge, No Vision Changes Cardiovascular : No Chest Pain, No SOB, No Dyspnea on Exertion, No Orthopnea, No Edema, No Palpitations Respiratory : No Cough, No Sputum, No Wheezing, No Smoke Exposure, No Dyspnea Gastrointestinal : No Nausea, No Vomiting, No Diarrhea, No Constipation, No abdominal Pain, No Hematochezia, No Melena Genitourinary : no irregular bleeding, No Dysuria, No Urinary Frequency, No Hematuria, No Urinary Incontinence, No Urgency, No Flank Pain, No Urinary Flow Changes, No Hesitancy Musculoskeletal : No joint pain, No Myalgias, No Joint Swelling Skin : No Skin Lesions, No rash Neuro : No Weakness, No Numbness, No Paresthesias, No Loss of Consciousness, No Dizziness, No Headache Psych : No Anxiety/Panic, No Depression, No SI/HI/AH/VH, admits to using drugs Heme/Lymph: No Bruising, No Bleeding,No Lymphadenopathy Endocrine : No Polyuria, No Polydipsia, No Temperature Intolerance PMFSH Past Medical History Medical History Opioid use disorder Trigeminal neuralgia History of thoracic outlet syndrome Surgical History History of hysterectomy Family History Family History Other No family history of coronary artery disease Social History Social History Household Members: None Housing: House Alcohol intake: never Patient Tobacco Use Status: Former Tobacco user Tobacco use type: Cigarette Substance Use Type: Heroin Advance Directives: No Advance Directives Information Provided: No Do you have a plan to hurt others: No Plan service: No Current occupational status: unemployed Physical Exam ED Vital Signs: Vital Signs - 24 hr 01/04/25 19:01 Temperature 98.2 F Pulse Rate 75 Respiratory Rate 16 Blood Pressure 150/52 H Pulse Oximetry 99 Oxygen Delivery Method Room Air BMI result Body Mass Index 17.3 Const Other: Appearance: Alert. Oriented X3. No acute distress. Eyes: Pupils equal, round and reactive to light. ENT: Pharynx normal. Neck: Normal inspection. Neck supple. No lymph nodes noted. No crepitus CVS: Normal heart rate and rhythm. Pulses normal. Normal S1 and S2 Respiratory: No respiratory distress. Breath sounds normal. No Wheezing. No rales Abdomen: Soft and nontender. No rigidity. No distention. Skin: Skin warm and dry. Normal skin color. Normal skin turgor. Extremities: No lower extremity edema. No Lacerations. No Rash Neuro: Oriented X 3. No motor deficit. No sensory deficit. Moving all extremities. No slurred speech. CN 2 through 12 grossly intact Psych: calm, cooperative, normal affect Medical Decision Making Medical Decision Making MDM Narrative: Patient is angry because she was brought to emergency room. Patient states that she wants to be discharged. My interpretation of labs: At baseline hematology, chemistry shows a potassium that is slightly decreased at 3.1. AST and ALT slightly bumped but at baseline, troponin normal Patient's vitals stable, alert and oriented x3, steady gait unassisted Denies SI or HI Patient requested information for a partial program, did not want to wait for the care team. Lab Data MDM Lab Attestation statement: I reviewed the patient's lab results. 01/04/25 19:23 01/04/25 19:23 Labs: Lab Results 01/04/25 01/04/25 Range/Units 19:23 21:19 WBC 5.6 (4.8-10.8) X10*3/uL RBC 3.96 L (4.20-5.50) X10*6/uL Hgb 12.6 (12.0-16.0) g/dl Hct 36.5 L (37.0-47.0) % MCV 92.2 (80.0-98.0) fL MCH 31.8 (27.0-33.0) pg MCHC 34.5 (31.0-35.0) g/dl RDW 14.1 (11.0-16.0) % Plt Count 167 (160-400) X10*3/uL MPV 11.4 (9.4-12.3) fL Immature Gran % (Auto) 0.2 (0.0-0.4) % Neut % (Auto) 59.9 (45-73) % Lymph % (Auto) 29.3 (20-40) % [place] % (Auto) 8.8 (2-11) % Eos % (Auto) 1.3 (0-4) % Baso % (Auto) 0.5 (0-2) % Lymph # (Auto) 1.6 (1.2-4.9) X10*3/uL [place] # (Auto) 0.5 (0.1-1.2) X10*3/uL Eos # (Auto) 0.1 (0.0-0.4) X10*3/uL Baso # (Auto) 0.0 (0.0-0.2) X10*3/uL Abs Immat Gran (auto) 0.01 (0.00-0.03) X10*3/uL Absolute Neuts (auto) 3.4 (2.0-8.3) x10*3/uL Absolute Nucleated RBC 0.000 (0.0-0.012) X10*3/uL Nucleated RBC % (auto) 0.0 (0.0-0.2) /100WBC PT 11.4 (10.9-12.4) SEC INR 1.0 (0.9-1.1) APTT 31.8 (26.0-36.8) SEC Sodium 144 (135-145) mmol/L Potassium 3.1 L D (3.3-5.1) mmol/L Chloride 104 (96-108) mmol/L Carbon Dioxide 25 (22-29) mmol/L Anion Gap 18 (12-20) BUN 9 (9-16) mg/dL Creatinine 0.85 (0.5-1.4) mg/dL Estim Creat Clear Calc 45.4 Estimated GFR > 60 Random Glucose 112 (60-115) mg/dL Calcium 9.6 (8.4-10.2) mg/dL Magnesium 1.8 (1.6-2.6) mg/dL Total Bilirubin 1.0 (0.0-1.0) mg/dL AST 70 H (5-31) U/L ALT 38 H (0-31) U/L Alkaline Phosphatase 49 (39-117) U/L Troponin I High Sens 4.6 (<3.5-17.0) ng/L Total Protein 7.4 (6.5-8.0) g/dL Albumin 4.3 (3.5-5.0) g/dL Urine Color Yellow Urine Appearance Clear Urine pH 6.5 (5.0-9.0) Ur Specific [place] <= 1.005 (1.005-1.025) Urine Protein Negative (Neg-Trace) mg/dL Urine Glucose (UA) Negative (Negative) mg/dL Urine Ketones Negative (Negative) mg/dL Urine Blood Negative (Negative) Urine Nitrite Negative (Negative) Ur Leukocyte Esterase Trace H (Negative) Urine RBC 0-2 (0-2) /HPF Urine WBC 0-5 (0-5) /HPF Ur Squamous Epith Cells 0-2 (0-2) /HPF Urine Bacteria None Seen (None Seen) Hyaline Casts 0-2 (0-2) /LPF Urine Opiates Screen Not Detected (Not Detect) Ur Buprenorphine Scrn Not Detected (Not Detect) ng/mL Ur Oxycodone Screen Not Detected (Not Detect) ng/mL Urine Methadone Screen Positive H (Not Detect) ng/mL Urine Fentanyl Screen POSITIVE H (Not Detect) Ur Barbiturates Screen Not Detected (Not Detect) Ur Phencyclidine Scrn Not Detected (Not Detect) Ur Amphetamines Screen Not Detected (Not Detect) U Benzodiazepines Scrn POSITIVE H (Not Detect) Urine Cocaine Screen Not Detected (Not Detect) U Marijuana (THC) Screen POSITIVE H (Not Detect) Influenza Type A (PCR) NEGATIVE (Negative) Influenza Type B (PCR) NEGATIVE (Negative) RSV RNA Qual (PCR) NEGATIVE (Negative) SARS-CoV-2 RNA (RT-PCR) NEGATIVE (Negative) Discharge Plan Discharge Clinical Impression: Acute hypokalemia, Polysubstance abuse Patient Disposition: Home, Self-Care Instructions: Potassium Content of Foods List (ED), Hypokalemia (ED), Polysubstance Abuse (ED) Additional Instructions: Please follow-up with your primary care physician tomorrow. If you have any worsening or new symptoms, please return to the emergency room or call 911 Prescriptions: No Action methadone [Methadone Intensol] 10 mg/mL Concentrate 65 mg PO DAILY Print Language: Qatari
[2025-01-04 22:15] VITALS: BP 150/52; PULSE 75; RESP 16; TEMP 36.8; O2SAT 99
--- NOTE | 2025-01-04 22:15 | PC.NURSE ---
pt refusing medication administration prior to d/c. pt also refusing this RN to obtain discharge vitals. belongings obtained from [facility]/provided to pt.
== END 2025-01-04 22:16 | disposition home or self-care (01) ==
PROVIDERS: Physician Assistant Medical; Emergency Provider Emergency Medicine
DX: E87.6 Hypokalemia (principal); I44.7 Left bundle-branch block, unspecified; R94.31 Abnormal electrocardiogram [ECG] [EKG]; F11.10 Opioid abuse, uncomplicated; F13.10 Sedative, hypnotic or anxiolytic abuse, uncomplicated; Z03.818 Encounter for observation for suspected exposure to other biological agents ruled out; Z79.899 Other long term (current) drug therapy; Z51.81 Encounter for therapeutic drug level monitoring
CPT/HCPCS: 0241U; 36415; 80053; 80307; 81001; 83735; 84484; 85025; 85610; 85730; 93005; 99283

== ENCOUNTER → 2025-01-04 19:09 | Outpatient (BNV) | payer MEDICARE, MEDICAID, SELFPAY | PROVIDERS: Emergency Provider Emergency Medicine; Visit Provider Internal Medicine Cardiovascular Disease | DX: I51.7 Cardiomegaly (principal); I44.7 Left bundle-branch block, unspecified | CPT/HCPCS: 93010 ==

== ENCOUNTER 2025-03-19 08:36 | Emergency (ER) | payer MEDICARE, MEDICAID, SELFPAY ==
[2025-03-19 08:45] VITALS: BP 183/66; PULSE 81; RESP 18; TEMP 36.8; O2SAT 99
[2025-03-19 09:09] VITALS: BP 183/66; BP 212/68; PULSE 83; PULSE 86; RESP 18; TEMP 36.8; O2SAT 99; BMI 20.4
[2025-03-19 10:04] VITALS: BP 150/56; PULSE 73; RESP 16
--- NOTE | 2025-03-19 10:08 | ED_ITS ---
HPI - General Adult General Chief complaint: Altered Mental Status Stated complaint: ACTING ABN @ METHADONE CL,CONFUSED CONVO/WALKS OFF Time Seen by Provider: 03/19/25 09:37 Source: patient and RN notes reviewed Mode of arrival: ambulatory Limitations: no limitations History of Present Illness ED Provider: Gretchen Cantu PA-C [facility] narrative: This is a 65-year-old female who presents emergency department from methadone clinic with concerns for erratic behavior. Patient reports that she went to her methadone clinic and she did not receive her methadone. She states that she was feeling well. She was alert and oriented x4, has no current complaints. She has no SI or HI. No auditory or visual hallucinations. She denies any headache, dizziness, blurred vision, chest pain, shortness for breath, abdominal pain, nausea, vomiting or diarrhea. She does report that occasionally she becomes upset about an individual that several months ago however states that she is processing this , and states that she does not do well when people ask about it. She does admit to using heroin several days ago. He was unsure what happened to her methadone take home bottles as she was not due until . No other complaints or concerns at this time. complaint: Behavior concerns Onset (ago): day(s) Relieving factors: none Exacerbating factors: none Associated symptoms: denies other symptoms Treatments prior to arrival: none Related Data Home Medications ?Medication ?Instructions ?Recorded ?Confirmed methadone 10 mg/mL oral 65 mg PO DAILY 06/11/22 06/11/22 concentrate (Methadone Intensol) Allergies Allergy/AdvReac Type Severity Reaction Status Date / Time Sulfa (Sulfonamide Allergy Intermediate SWELLING Verified 03/19/25 09:14 Antibiotics) From FLAGYL Allergy Unknown SWELLING Uncoded 06/14/24 01:44 Review of Systems Review of Systems: Yes all other systems are reviewed and are negative Constitutional: Constitutional: Reports as per [facility] Past Medical History Medical History Opioid use disorder Trigeminal neuralgia History of thoracic outlet syndrome Surgical History History of hysterectomy Family History Family History Other No family history of coronary artery disease Social History Social History Household Members: None Housing: House Alcohol intake: never Patient Tobacco Use Status: Former Tobacco user Tobacco use type: Cigarette Smoked in Last 30 Days: No Use of substances other than those prescribed or required for medical reasons: Yes Substance Use Type: Heroin and Marijuana Last Used Substance: Days (ago) Advance Directives: No Advance Directives Information Provided: No service: No Current occupational status: unemployed Physical Exam ED Vital Signs: Vital Signs - 24 hr 03/19/25 08:45 03/19/25 09:09 03/19/25 10:04 Temperature 98.2 F 98.2 F Pulse Rate 81 86 73 Respiratory Rate 18 18 16 Blood Pressure 183/66 H 183/66 H 150/56 H Pulse Oximetry 99 99 Oxygen Delivery Method Room Air Room Air 03/19/25 10:37 Temperature 0 F L Pulse Rate 73 Respiratory Rate 16 Blood Pressure 150/56 H Pulse Oximetry 96 Oxygen Delivery Method Room Air BMI result Body Mass Index 20.4 Const General: cooperative, comfortable and no acute distress Orientation/consciousness: patient oriented x3 Limitations: no limitations HENMT Head: Yes normal to inspection, Yes normocephalic and Yes atraumatic Ears: hearing grossly normal bilaterally General nose exam: Normal external nose present Face and sinus: Yes normal facial exam Mouth: Normal oral and palatal mucosa present, oropharynx normal and moist mucous membranes Throat: Yes posterior oropharynx normal Eyes General: appearance normal, both eyes and all related structures Eyelids: Yes eyelids normal Conjunctivae: conjunctivae normal Sclerae: sclerae normal Pupils: Equal, round and reactive pupils present EOM: EOMs intact bilaterally Neck Neck: Yes normal visual inspection, Yes full ROM and Yes no lymphadenopathy Lymphatic: no lymphadenopathy noted Chest Chest palpation & inspection: normal inspection of the chest Resp Effort & Inspection: normal respiratory effort and able to speak in complete sentences Auscultation: clear to auscultation bilaterally, no crackles, no rales, no rhonchi and no wheezes Cardio Rate: regular rate Rhythm: regular rhythm Heart sounds: S1 normal heart sound present and S2 normal heart sound present GI Other: Abdomen is soft, nontender, nondistended Inspection: Yes normal to inspection Skin General skin exam: no rashes or lesions noted Trauma: no lacerations or abrasions Wounds: no wounds Neuro General: patient oriented x3 and moves all extremities Cranial nerves: Yes CN's II-XII intact bilaterally and Yes Equal, round and reactive pupils present Cognition (Neuro): normal cognition Gait exam (Neuro): Normal gait present Motor exam (neuro): 5/5 motor strength present throughout and Pronator motor function not present Coordination: [id number] test normal Romberg Test: Negative Pupils: Normal pupillary reactivity/response: bilateral Extrem General: Yes normal to inspection Right upper extremity: normal to inspection Left upper extremity: normal to inspection Right lower extremity: normal to inspection Left lower extremity: normal to inspection Psych Appearance: disheveled Mental Status: mental status grossly normal Speech and movement: Normal speech and movement present Affect: normal affect Attitude: cooperative Thought process: Normal thought process present Thought content: Normal thought content present Insight: Fair insight present (Psych) Judgement: Fair judgement present (Psych) Medical Decision Making Medical Decision Making MDM Narrative: This is a 65-year-old female, with a history of opioid use disorder on methadone, who presents emergency department for evaluation of behavior changes at the methadone clinic this morning. On arrival, patient mildly hypertensive at 183/66, this was repeated and is 150/56. Patient reports that she was feeling well and she was unsure why she was brought to the emergency room. Patient was alert and oriented x4, she has no focal neurologic deficits on exam. She has no physical ailments. I had a long discussion about the situation that happened this morning while she was at the methadone clinic. Patient states that she has had some difficulties processing a of her friend which happened several months ago however states that she has had no increased depression, anxiety, she has no thoughts of suicidal or homicidal ideation. She was no auditory or visual hallucinations. She has no physical complaints. I did not extensive neurologic examination and did not find any current findings. Given that she was alert and oriented x4, she has no physical complaints. Patient was hoping that she could be dosed with her methadone, I spoke with the clinician, states that she showed up 2 days early for her methadone dosing. Patient is aware that she did that, states that she was unsure where she placed these bottles. Spoke with patient that we are unable to re-dose her with methadone as she was not due for this as of yet. She states that she will check her house to see if she misplaced these bottles. Given that she has had a normal exam, and is able to hold conversation since she has no physical complaints, patient does not require any further medical management or evaluation. Patient was given strict return precautions. She lives with a roommate, she states that she has plenty of help at home. Patient is ambulatory, and fully neurologically intact therefore labs, UA not indicated at this time. She was eager for discharge. Patient given strict return precautions. Patient stable for discharge. Differential Diagnosis Differential Diagnoses: The differential diagnosis associated with the presentation includes Anxiety, depression, wellness check, opioid use disorder Discharge Plan Discharge Clinical Impression: Encounter for screening examination for mental health and behavioral disorders, Methadone use Patient Disposition: Home, Self-Care Instructions: Depression (ED), Opioid Use Disorder (ED) Additional Instructions: You were seen in the emergency department today. You had a normal physical exam. We are unable to provide you methadone as you are due for methadone on . Please drink plenty of fluids get plenty of rest. Continue all at-home medications as prescribed. If any new or worsening symptoms occur including but not limited to chest pain, shortness of breath, confusion, please seek emergent care. Prescriptions: No Action methadone [Methadone Intensol] 10 mg/mL Concentrate 65 mg PO DAILY Interventions: ED Discharge Assessment Last Done: 03/19/25 10:37 Discharge Date/Time: 03/19/25 10:38 Print Language: Belarusian
--- NOTE | 2025-03-19 10:08 | PC.NURSE ---
Pt a/o/ambulatory. Gretchen AHUMADA to bedside and full assessment and neuros intact, pt denies CP or SOB. Denies SI OR HI, acting appropriately. [place]. Call to Methadone clinic who sates pt take home bottles were empty and clinician spoke to Gretchen AHUMADA regarding concerns exhibited at clinic. Plan to discharged at this time
[2025-03-19 10:37] VITALS: BP 150/56; PULSE 73; RESP 16; TEMP -17.7; TEMP 0; O2SAT 96
== END 2025-03-19 10:38 | disposition home or self-care (01) ==
LOC: HO.ED 10:24
PROVIDERS: Emergency Provider Emergency Medicine
DX: F11.94 Opioid use, unspecified with opioid-induced mood disorder (principal); F91.8 Other conduct disorders; Z79.899 Other long term (current) drug therapy; Z87.891 Personal history of nicotine dependence
CPT/HCPCS: 99283; 99284

== ENCOUNTER 2025-05-10 18:25 | Observation (INO) | payer MEDICARE, OTHER, SELFPAY ==
--- NOTE | ~2025-05-10 | CT_ITS ---
CLINICAL HISTORY: found on floor unresponsive CT BRAIN WITHOUT CONTRAST COMPARISON: None. FINDINGS: There is mild parenchymal atrophy. There is no evidence of an acute infarct or intraparenchymal hemorrhage. Patchy areas of low attenuation are noted in the subcortical and periventricular regions of the supratentorial brain which are nonspecific but most likely represent chronic small vessel ischemic disease. There is no mass effect, midline shift, or extra-axial blood. The ventricles are normal in size without evidence of hydrocephalus. The bone windows are unremarkable. IMPRESSION: 1. No acute disease in the brain. This document has been electronically signed by: Noble Webb M.D. on 05/10/2025 23:39:56
--- NOTE | ~2025-05-10 | CT_ITS ---
CLINICAL HISTORY: AMS, found unresponsive CT CERVICAL SPINE WITHOUT CONTRAST COMPARISON: None. FINDINGS: No evidence of an acute fracture or dislocation within the cervical spine. Multilevel endplate degenerative changes are noted. Remote mild compression deformity of the T1 vertebral body level is noted, without retropulsion into the central canal. No prevertebral soft tissue swelling. No pneumothorax in the lung apices. 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 Interlobular septal thickening is noted within the lung apices. No pleural effusion at the level of the lung apices. IMPRESSION: 1. No evidence of an acute fracture or dislocation. 2. Interlobular septal thickening is noted within the lung apices. This is nonspecific but can be seen in the setting of edema. This document has been electronically signed by: Noble Webb M.D. on 05/10/2025 23:48:16
[2025-05-10 18:40] VITALS: BP 173/94; PULSE 55; O2SAT 100
[2025-05-10 18:42] VITALS: BP 162/79; PULSE 60; RESP 18; TEMP 36.5; O2SAT 99; BMI 28.3
[2025-05-10 20:54] VITALS: BP 145/67; PULSE 55; RESP 16; O2SAT 97
--- NOTE | 2025-05-10 21:38 | ED.GENADULT ---
HPI - General Adult General Chief complaint: ETOH/Substance Use Stated complaint: overdose Time Seen by Provider: 05/10/25 21:28 Source: patient and EMS Mode of arrival: EMS Limitations: other History of Present Illness ED Provider: Dr. Shelli Alvarez HPI narrative: Patient comes to the emergency room via ambulance. According to EMS, the patient was found unresponsive on the floor. PD gave the patient a total of 8 mg intranasal Narcan then required ventilation via Ambu bag. When patient arrived to the emergency room, she woke up, breathing her home. Patient denies taking any substances, although there is medical history of polysubstance abuse. Patient is very somnolent, keeps falling asleep, easily arousable. Patient unable to provide any more significant history. Related Data Home Medications ?Medication ?Instructions ?Recorded ?Confirmed methadone 10 mg/mL oral 65 mg PO DAILY 06/11/22 06/11/22 concentrate (Methadone Intensol) Allergies Allergy/AdvReac Type Severity Reaction Status Date / Time Sulfa (Sulfonamide Allergy Intermediate SWELLING Verified 05/10/25 18:46 Antibiotics) From [facility] Allergy Unknown SWELLING Uncoded 05/10/25 18:46 Review of Systems Review of Systems: Yes Unobtainable due to mental status PMFSH Past Medical History Medical History Opioid use disorder Trigeminal neuralgia History of thoracic outlet syndrome Surgical History History of hysterectomy Family History Family History Other No family history of coronary artery disease Social History Social History Household Members: None Housing: House Alcohol intake: never Patient Tobacco Use Status: Former Tobacco user Tobacco use type: Cigarette Substance Use Type: Heroin and Marijuana Advance Directives: No Advance Directives Information Provided: Yes service: No Current occupational status: unemployed Physical Exam ED Vital Signs: Vital Signs - 24 hr 05/10/25 18:42 05/10/25 20:54 05/10/25 23:27 Temperature 97.7 F 97.7 F Pulse Rate 60 55 55 Respiratory Rate 18 16 14 Blood Pressure 162/79 H 145/67 H 142/71 H Pulse Oximetry 99 97 97 Oxygen Delivery Method Room Air Room Air Room Air 05/11/25 03:13 Temperature 97.9 F Pulse Rate 50 Respiratory Rate 14 Blood Pressure 121/60 Pulse Oximetry 97 Oxygen Delivery Method Room Air BMI result Body Mass Index 28.3 Const Other: Appearance: Somnolent Eyes: Pupils equal, round and reactive to light. ENT: Pharynx normal. Neck: Normal inspection. Neck supple. No lymph nodes noted. No crepitus CVS: Normal heart rate and rhythm. Pulses normal. Normal S1 and S2 Respiratory: No respiratory distress. Breath sounds normal. No Wheezing. No rales Abdomen: Soft and nontender. No rigidity. No distention. Skin: Skin warm and dry. Normal skin color. Normal skin turgor. Extremities: No lower extremity edema. No Lacerations. No Rash Neuro: Oriented X 3. No motor deficit. No sensory deficit. Moving all extremities. No slurred speech. CN 2 through 12 grossly intact Psych: calm, cooperative, normal affect Medical Decision Making Medical Decision Making [facility] Narrative: my interpretation of EKG: Sinus bradycardia, heart rate 53, left bundle branch block, T-wave inversions in V4 V5 V6, QTC 536 when comparing ultrasounds from previous visits, patient's EKGs seems to always have some different morphology. My interpretation of labs: No significant abnormality in patient's hematology, chemistry shows a sodium of 130, normal electrolytes otherwise, troponin 1. 54.5, troponin 2. 105.8 patient states that she does have some substernal chest pain that is been present for couple of days. Patient attributes the pain to heavy lifting over last few days. Denies any shortness of breath. I discussed the above-mentioned with Dr. Kaur from Cardiology, patient to be admitted, trend troponin every 6-8 hours, no heparin at this time.. I discussed the patient with Dr. Anderson from the Medicine team, patient admitted Differential Diagnosis Differential Diagnoses: The differential diagnosis associated with the presentation includes ( demand ischemia, NSTEMI, ACS) Admission/Observation Consideration of admission/observation: Escalation of care including admission/observation considered Consult Healthcare Provider Management of the patient was discussed with: Hospitalist and Casting Repairer Lab Data [facility] Lab Attestation statement: I reviewed the patient's lab results. 05/10/25 22:03 05/10/25 22:03 Labs: Lab Results 05/10/25 05/10/25 05/11/25 Range/Units 22:03 23:36 01:11 WBC 5.8 (4.8-10.8) X10*3/uL RBC 4.37 (4.20-5.50) X10*6/uL Hgb 13.7 (12.0-16.0) g/dl Hct 37.1 (37.0-47.0) % MCV 84.9 (80.0-98.0) fL MCH 31.4 (27.0-33.0) pg MCHC 36.9 H (31.0-35.0) g/dl RDW 12.4 (11.0-16.0) % Plt Count 146 L (160-400) X10*3/uL MPV 11.5 (9.4-12.3) fL Immature Gran % (Auto) 0.3 (0.0-0.4) % Neut % (Auto) 64.1 (45-73) % Lymph % (Auto) 28.0 (20-40) % [place] % (Auto) 6.2 (2-11) % Eos % (Auto) 0.9 (0-4) % Baso % (Auto) 0.5 (0-2) % Lymph # (Auto) 1.6 (1.2-4.9) X10*3/uL [place] # (Auto) 0.4 (0.1-1.2) X10*3/uL Eos # (Auto) 0.1 (0.0-0.4) X10*3/uL Baso # (Auto) 0.0 (0.0-0.2) X10*3/uL Abs Immat Gran (auto) 0.02 (0.00-0.03) X10*3/uL Absolute Neuts (auto) 3.7 (2.0-8.3) x10*3/uL Absolute Nucleated RBC 0.000 (0.0-0.012) X10*3/uL Nucleated RBC % (auto) 0.0 (0.0-0.2) /100WBC Sodium 130 L (135-145) mmol/L Potassium 3.6 (3.3-5.1) mmol/L Chloride 97 (96-108) mmol/L Carbon Dioxide 25 (22-29) mmol/L Anion Gap 12 (12-20) BUN 11 (9-16) mg/dL Creatinine 0.95 (0.5-1.4) mg/dL Estim Creat Clear Calc 56.9 Estimated GFR 59 Random Glucose 148 H (60-115) mg/dL Calcium 8.7 D (8.4-10.2) mg/dL Magnesium 1.9 (1.6-2.6) mg/dL Total Bilirubin 1.0 (0.0-1.0) mg/dL Direct Bilirubin 0.4 (0.0-0.5) mg/dL AST 57 H (5-31) U/L ALT 37 H (0-31) U/L Alkaline Phosphatase 52 (39-117) U/L Troponin I High Sens 54.5 H* D 105.8 H* D (<3.5-17.0) ng/L Total Protein 6.6 (6.5-8.0) g/dL Albumin 3.9 (3.5-5.0) g/dL Urine Color Yellow Urine Appearance Clear Urine pH 6.5 (5.0-9.0) Ur Specific [place] <= 1.005 (1.005-1.025) Urine Protein Negative (Neg-Trace) mg/dL Urine Glucose (UA) Negative (Negative) mg/dL Urine Ketones Negative (Negative) mg/dL Urine Blood Negative (Negative) Urine Nitrite Negative (Negative) Ur Leukocyte Esterase Trace H (Negative) Urine RBC 0-2 (0-2) /HPF Urine WBC 0-5 (0-5) /HPF Ur Squamous Epith Cells 0-2 (0-2) /HPF Urine Bacteria None Seen (None Seen) Hyaline Casts 0-2 (0-2) /LPF Urine Opiates Screen Not Detected (Not Detect) Ur Buprenorphine Scrn Not Detected (Not Detect) ng/mL Ur Oxycodone Screen Not Detected (Not Detect) ng/mL Urine Methadone Screen Positive H (Not Detect) ng/mL Urine Fentanyl Screen POSITIVE H (Not Detect) Ur Barbiturates Screen Not Detected (Not Detect) Ur Phencyclidine Scrn Not Detected (Not Detect) Ur Amphetamines Screen Not Detected (Not Detect) U Benzodiazepines Scrn POSITIVE H (Not Detect) Urine Cocaine Screen Not Detected (Not Detect) U Marijuana (THC) Screen POSITIVE H (Not Detect) Ethyl Alcohol < 10 mg/dL Independent Interpretation I performed an independent interpretation of an: EKG Critical Care Time Critical Care Time Critical Care Time: Yes Total Critical Care Time: 60 Attestation: I have personally provided critical care time. Time includes review of lab data, radiology results, discussion with consultants, and monitoring for potential decompensation. Intervention performed as documented. Discharge Plan Discharge Clinical Impression: Accidental overdose, Elevated troponin Patient Disposition: Admitted As Inpatient Prescriptions: No Action methadone [Methadone Intensol] 10 mg/mL Concentrate 65 mg PO DAILY Print Language: Kinyarwanda
--- NOTE | 2025-05-10 21:39 | ECG_ITS ---
Test Reason : UNRESPONSIVE Blood Pressure : */* mmHG Vent. Rate : 53 BPM Atrial Rate : 53 BPM P-R Int : 200 ms QRS Dur : 162 ms QT Int : 572 ms P-R-T Axes : 86 -63 137 degrees QTcB Int : 536 ms Sinus bradycardia Right atrial enlargement Left axis deviation Left bundle branch block Abnormal ECG When compared with ECG of 04-Jan-2025 19:29, T wave inversion now evident in Inferior leads T wave inversion now evident in Anterior leads Referred By: Shelli Alvarez Electronically Signed By: CRUZ SOLANO MD
[2025-05-10 22:06] LABS: MANUAL DIFF FLAG NO
[2025-05-10 22:18] LABS: Basophils Percent Auto 0.5 % (0-2); Eosinophils Absolute Auto 0.1 X10*3/uL (0.0-0.4); Eosinophils Percent Auto 0.9 % (0-4); Hematocrit 37.1 % (37.0-47.0); Hemoglobin 13.7 g/dl (12.0-16.0); Imm Gran Abs Auto 0.02 X10*3/uL (0.00-0.03); Imm Gran Pct Auto 0.3 % (0.0-0.4); Lymphocytes Absolute Auto 1.6 X10*3/uL (1.2-4.9); Mean Corpuscular HGB Conc 36.9 g/dl (31.0-35.0); Mean Corpuscular Hemoglobin 31.4 pg (27.0-33.0); Mean Corpuscular Volume 84.9 fL (80.0-98.0); Mean Platelet Volume 11.5 fL (9.4-12.3); Monocytes Absolute Auto 0.4 X10*3/uL (0.1-1.2); Monocytes Percent Auto 6.2 % (2-11); Neutrophils Absolute Auto 3.7 x10*3/uL (2.0-8.3); Neutrophils Percent Auto 64.1 % (45-73); Platelet Count 146 X10*3/uL (160-400); Red Blood Count 4.37 X10*6/uL (4.20-5.50); Red Cell Distribution Width 12.4 % (11.0-16.0); White Blood Count 5.8 X10*3/uL (4.8-10.8)
[2025-05-10 22:22] LABS: Alanine Aminotransferase 37 U/L (0-31); Albumin Level 3.9 g/dL (3.5-5.0); Alkaline Phosphatase 52 U/L (39-117); Anion Gap 12 (12-20); Aspartate Amino Transferase 57 U/L (5-31); Bilirubin Direct 0.4 mg/dL (0.0-0.5); Blood Urea Nitrogen 11 mg/dL (9-16); Calcium 8.7 mg/dL (8.4-10.2); Carbon Dioxide 25 mmol/L (22-29); Chloride 97 mmol/L (96-108); Creatinine Clr Calc Pharmacy 56.9; Estimated Glomerular Filt Rate 59; Ethanol < 10 mg/dL; Glucose Random 148 mg/dL (60-115); Magnesium 1.9 mg/dL (1.6-2.6); Potassium 3.6 mmol/L (3.3-5.1); Sodium 130 mmol/L (135-145); Total Protein 6.6 g/dL (6.5-8.0)
[2025-05-10 22:35] LABS: Troponin-I High Sensitivity 54.5 ng/L (<3.5-17.0)
--- NOTE | 2025-05-10 22:49 | ECG_ITS ---
Test Reason : ABNORMAL EKG Blood Pressure : */* mmHG Vent. Rate : 52 BPM Atrial Rate : 52 BPM P-R Int : 198 ms QRS Dur : 160 ms QT Int : 598 ms P-R-T Axes : 83 -62 150 degrees QTcB Int : 556 ms Sinus bradycardia Right atrial enlargement Left axis deviation Left bundle branch block Abnormal ECG When compared with ECG of 10-May-2025 21:44, No significant change was found Referred By: Shelli Alvarez Electronically Signed By: RCUZ SOLANO MD
[2025-05-10 23:27] VITALS: BP 142/71; PULSE 55; RESP 14; TEMP 36.5; O2SAT 97
[2025-05-10 23:45] LABS: Appearance Urine Clear; Color Urine Yellow; Glucose Urine UA Negative (Negative); Leukocyte Esterase Urine Trace (Negative); Nitrite Urine Negative (Negative); PH 6.5 (5.0-9.0); Specific Gravity - Urine <= 1.005 (1.005-1.025); UMIC TRIGGER UACC YES; Urine Blood Negative (Negative); Urine Ketones Negative (Negative); Urine Protein Negative (Neg-Trace)
[2025-05-10 23:54] LABS: Amphetamine Screen Urine Not Detected (Not Detect); Barbiturates, Urine Not Detected (Not Detect); Benzodiazepines Screen Urine POSITIVE (Not Detect); Buprenorphine Scr Not Detected (Not Detect); Cannabinoid Screen Urine POSITIVE (Not Detect); Cocaine Screen Urine Not Detected (Not Detect); Fentanyl, urine POSITIVE (Not Detect); Methadone Screen, Urine Positive (Not Detect); Opiate Screen Urine Not Detected (Not Detect); Oxycodone Screen Urine Not Detected (Not Detect); Phencyclidine Screen Urine Not Detected (Not Detect)
[2025-05-11 00:25] LABS: Bacteria Urine None Seen (None Seen); Hyaline Casts Urine 0-2 /LPF (0-2); RBC Urine 0-2 /HPF (0-2); Squamous Epithelial Cell Urine 0-2 /HPF (0-2); WBC Urine 0-5 /HPF (0-5)
[2025-05-11 01:42] LABS: Troponin-I High Sensitivity 105.8 ng/L (<3.5-17.0)
[2025-05-11 03:13] VITALS: BP 121/60; PULSE 50; RESP 14; TEMP 36.6; O2SAT 97
--- NOTE | 2025-05-11 04:07 | P.HPHOSP_ITS ---
History of Present Illness Date of Service: 05/11/25 Attending physician on admission: Edmund Anderson Chief Complaint: accidental overdose Pt is a 65 yo female with PMH substance use disorder on methadone for last 2 years, anorexia , depression, SWETA, neuropathy, previous overdose, trigeminal neuralgia, hx of thoracic outlet syndrome, hysterectomy presents to ED BIBA for overdose and unresponsiveness requiring narcan 8 mgs. Pt did not require CPR but received ambu bag at the scene. Pt currently awake, alert and able to answer questions and follow commands. Pt is able to protect her airway. CT head and cervical spine negative for acute findings. Pt states she missed her window to get her methadone and bought heroin on the street. Pt does not remember what happened after taking the heroin. Tox screen positive for fentanyl, methadone, benzos and marijuana and negative for cocaine. Pt is experiencing significant depression but denies SI, HI or AVH. Methadone dose will need to be reviewed by pharmacy in the AM and ordered once dose confirmed. Pt has to walk daily to methadone clinic to obtain medication. Pt has completed paperwork to have nurse come to her home and administer methadone. Pt does not have a start date. Pt has no means for transportation. Pt denies chest pain, SOB at rest or abdominal pain at this time. Troponins elevated and cardiology recommends pt be admitted for repeat troponin at 7AM. Pt does not require heparin per digital retoucher. ECG Sinus Kip, rate 54, KEN, LAD, LBBB. Na 130. K 3.1 and after supplementation, 3.6. At end of HPI, pt stated she wanted to leave AMA but then agreed to stay and was able to use rest room and rest. Review of Systems 2 Review of Systems: Patient denies any chest pain, shortness of breath at rest or with exertion. Patient denies any nausea or vomiting. Patient is not having any abdominal pain. Patient has chronic neuropathy. Patient states she is anorexic but BMI recorded at 28. Yes all other systems are reviewed and are negative [facility] Medical History Opioid use disorder Trigeminal neuralgia History of thoracic outlet syndrome Cognitive capacity: Currently alert and orientated x3 Functional capacity: independent ambulation Patient : No Family History Other No family history of coronary artery disease Surgical History History of hysterectomy Social History Household Members: None Housing: House Alcohol intake: never Patient Tobacco Use Status: Former Tobacco user Tobacco use type: Cigarette Substance Use Type: Heroin and Marijuana Advance Directives: No Advance Directives Information Provided: Yes Patient : No service: No Current occupational status: unemployed Ebola Risk: Travel/Contact With Anyone From Affected Area/s: No Has Patient Experienced Ebola Symptoms: No Meds Allergies Allergy/AdvReac Type Severity Reaction Status Date / Time Sulfa (Sulfonamide Allergy Intermediate SWELLING Verified 05/10/25 18:46 Antibiotics) From [facility] Allergy Unknown SWELLING Uncoded 05/10/25 18:46 Active Medications: Current Medications Acetaminophen (Acetaminophen 325 Mg Tablet) 650 mg PO Q6H PRN PRN Reason: Pain, Mild 1-3,fever,headache Albuterol/Ipratropium (Albuterol/Iprat 2.5/0.5mg 3 Ml Ampul.Neb) 3 ml INHALE Q4H PRN PRN Reason: Shortness of Breath/Wheezing Calcium Carbonate (Calcium Carbonate 750 Mg Tab.Chew) 750 mg PO Q4H PRN PRN Reason: Heartburn Enoxaparin Sodium (Enoxaparin Sodium 40 Mg/0.4 Ml Syringe) 40 mg SUBCUT Q24H CRISTIANE Magnesium Hydroxide (Milk Of Magnesia 30 Ml Oral.Susp) 30 ml PO DAILY PRN PRN Reason: Constipation Melatonin (Melatonin 3 Mg Tablet) 6 mg PO BEDTIME PRN PRN Reason: Insomnia Ondansetron HCl (Ondansetron Hcl 4 Mg/2 Ml Vial) 4 mg IVPUSH Q8H PRN PRN Reason: Nausea and Vomiting Polyethylene Glycol (Polyethylene Glycol 3350 17 Gm Powd.Pack) 17 gm PO DAILY PRN PRN Reason: Constipation Senna (Sennosides 8.6 Mg Tablet) 17.2 mg PO BEDTIME CRISTIANE Sodium Chloride (0.9 % Sodium Chloride Flush 3 Ml Syringe) 3 ml IVFLUSH QSHIFT [facility] Home Medications ?Medication ?Instructions ?Recorded ?Confirmed ?Last Taken ?Type methadone 10 mg/mL oral 65 mg PO DAILY 06/11/22 06/11/22 06/11/22 History concentrate (Methadone Intensol) Physical Exam 2 Vital Signs and Narrative: Vital Signs: Last Vital Signs Temp 97.9 F 05/11/25 03:13 Pulse 50 05/11/25 03:13 Resp 14 05/11/25 03:13 BP 121/60 05/11/25 03:13 Pulse Ox 97 05/11/25 03:13 O2 Del Method Room Air 05/11/25 03:13 BMI result Body Mass Index 28.3 Alert and orientated X3, able to follow commands, answer questions asked and protect her airway Neuro: CN II-X11 intact, no deficits, visual acuity intact EYES: PERRLA, EOM intact, sclerae nonicteric ENT: hearing intact, no issues with swallowing, uvula midline, lips moist, nares patent no epistaxis, dentition in poor repair no obvious abscess Cardiac: S1 S2 RRR, bradycardic, no murmur, no JVD, no edema in Lower ext Pulmonary: lungs clear to auscultation B Abdominal: BS active in all 4 quadrants, no guarding, tenderness, rebounding MSK: strength 5/5 upper and lower extremities : no CVA tenderness no bladder distension Extremities: no edema in lower extremities, PT and DP pulses palpable +2 Psych: mood stable, judgement and insight fair Skin: pale, intact Results Labs 05/10/25 22:03 05/10/25 22:03 Labs: Laboratory Results - last 24 hr 05/10/25 05/10/25 05/11/25 22:03 23:36 01:11 MCV 84.9 MCH 31.4 MCHC 36.9 H RDW 12.4 Plt Count 146 L MPV 11.5 Immature Gran % (Auto) 0.3 Neut % (Auto) 64.1 Lymph % (Auto) 28.0 [place] % (Auto) 6.2 Eos % (Auto) 0.9 Baso % (Auto) 0.5 Lymph # (Auto) 1.6 [place] # (Auto) 0.4 Eos # (Auto) 0.1 Baso # (Auto) 0.0 Abs Immat Gran (auto) 0.02 Absolute Neuts (auto) 3.7 Absolute Nucleated RBC 0.000 Nucleated RBC % (auto) 0.0 Anion Gap 12 Estim Creat Clear Calc 56.9 Estimated GFR 59 Random Glucose 148 H Calcium 8.7 D Magnesium 1.9 Total Bilirubin 1.0 Direct Bilirubin 0.4 AST 57 H ALT 37 H Alkaline Phosphatase 52 Troponin I High Sens 54.5 H* D 105.8 H* D Total Protein 6.6 Albumin 3.9 Urine Color Yellow Urine Appearance Clear Urine pH 6.5 Ur Specific [place] <= 1.005 Urine Protein Negative Urine Glucose (UA) Negative Urine Ketones Negative Urine Blood Negative Urine Nitrite Negative Ur Leukocyte Esterase Trace H Urine RBC 0-2 Urine WBC 0-5 Ur Squamous Epith Cells 0-2 Urine Bacteria None Seen Hyaline Casts 0-2 Urine Opiates Screen Not Detected Ur Buprenorphine Scrn Not Detected Ur Oxycodone Screen Not Detected Urine Methadone Screen Positive H Urine Fentanyl Screen POSITIVE H Ur Barbiturates Screen Not Detected Ur Phencyclidine Scrn Not Detected Ur Amphetamines Screen Not Detected U Benzodiazepines Scrn POSITIVE H Urine Cocaine Screen Not Detected U Marijuana (THC) Screen POSITIVE H Ethyl Alcohol < 10 ECG Attestation: I personally reviewed and interpreted this ECG as follows: (SB, LBBB ) Prior ECG tracings: available for review Imaging Radiologist's Impressions: CT head FINDINGS: There is mild parenchymal atrophy. There is no evidence of an acute infarct or intraparenchymal hemorrhage. Patchy areas of low attenuation are noted in the subcortical and periventricular regions of the supratentorial brain which are nonspecific but most likely represent chronic small vessel ischemic disease. There is no mass effect, midline shift, or extra-axial blood. The ventricles are normal in size without evidence of hydrocephalus. The bone windows are unremarkable. IMPRESSION: 1. No acute disease in the brain. Assessment and Plan (1) Accidental overdose: Qualifiers: Encounter type: subsequent encounter Qualified Code(s): T50.901D - Poisoning by unspecified drugs, medicaments and biological substances, accidental (unintentional), subsequent encounter Status: Acute Plan Pt is a 65 yo female with PMH substance use disorder on methadone for last 2 years, anorexia , depression, SWETA, neuropathy, previous overdose, trigeminal neuralgia, hx of thoracic outlet syndrome, hysterectomy is being admitted for elevated troponin s/p overdose without cardiac arrest. Accidental overdose -Per patient she took heroin because she could not make it to the methadone clinic for her daily methadone. Patient normally has to walk each day. -Patient required 8 mgs narcan for reversal. -Toxicology screen positive for Fentanyl, marijuana, benzos, methadone -Addictions consulted -Pt high risk for leaving AMA, pt counseled on risk associated with leaving AMA -Patient has completed paperwork for nursing to come to her home daily to provide the methadone. Patient does not know the start date. -CM consulted to see if there is help with transportation Elevated troponin, noted LBBB -Reviewed by cardiology, repeat troponin 7AM, no heparin required -Pt currently asymptomatic -Telemetry Hypokalemia -K 3.1, no 3.6 after supplementation -BMP in AM Bradycardia -Chronic, rate above 50 with known LBBB -Pt is not on any AV joanne blocking agents -Mg Stable -Check Tsh Hyponatremia -130 -Repeat BMP Substance use disorder on methadone -Pharmacy needs to complete med rec in AM, methadone will need to be ordered -Addictions consulted -CM asked to see if there is help with transportaiton and getting to methadone clinic daily, as pt missed her dose and bought drugs on the street because she missed the window to pickling grader med at clinic -Pt is denying SI, HI no indication for section -Pt lived with depression, untreated, is interested in speaking to psychiatry for help DVT prophylaxis: lovenox MED REC pending FULL CODE Quality Stroke Does the patient have a stroke diagnosis?: No Reason for No Anti-thrombotic by Day Two: N/A - Med Ordered VTE Prior VTE?: No VTE Risk Level:: Medical - moderate - high VTE Device Contraindication: N/A - Device Ordered VTE Drug Contraindication: N/A - Med Ordered
--- NOTE | 2025-05-11 04:27 | PC.NURSE ---
spoke with pt and pt allowed t/w to attempt to put in IV. Pt jumped while trying to place IV and yelled at t/w saying you are not a professional, you are an RN and you are not poking me . Pt willing to let tech draw labs but refusing IV.
[2025-05-11 05:06] LABS: Free T4 (Free Thyroxine) 1.21 ng/dL (0.71-1.85); Thyroid Stimulating Hormone 1.01 uIU/mL (0.32-4.0)
--- NOTE | 2025-05-11 07:37 | PC.NURSE ---
Call placed to [facility] @ [phone]. Spoke with RN Sil who verifies Pt received Methadone 55mg, last on 05/10/25 @ 7056. Methadone verification form completed and faxed to Pharmacy. Form placed in Pts physical chart.
--- NOTE | 2025-05-11 08:25 | PC.NURSE ---
This RN messaged provider Dr. Blanco for primary nurse. Pt stated she wants to leave AMA and sign the paperwork. Awaiting provider to come down at this time
[2025-05-11 08:39] VITALS: BP 153/53; PULSE 61; RESP 18; O2SAT 98
--- NOTE | 2025-05-11 08:58 | HE.PHANOTE ---
RE: METHADONE DOSING Last dose of methadone 55 mg was given at [facility] on 05/10/25 @0625 per CHANTEL Mujica.
--- NOTE | 2025-05-11 09:36 | PHA.MEDREC ---
Addendum entered by Aislinn Bianchi RPh 05/11/25 11:23: MED REC REVIEWED Original Note: Pharmacy Consult ? Medication Reconciliation Pharmacy has completed the medication reconciliation. Patient states she only takes Methadone [address] [facility] in [place], last dose was yesterday.
[2025-05-11] MEDS: methADONE HCl 20 MG/2 ML ORAL.CONC 55 MG PO (09:54)
[2025-05-11] MEDS: 0.9 % Sodium Chloride Flush 3 ML SYRINGE IVFLUSH (09:56)
--- NOTE | 2025-05-11 10:12 | PC.NURSE ---
transport here to bring pt upstairs to room, pt then became agitated, started to threaten and swear at staff, this RN attempted to de-escalate pt, however pt continued to refuse to leave ED. Pt insistent on wanting to leave AMA even though she agreed to stay this morning. MD Blanco notified, awaiting dispo at this time.
--- NOTE | 2025-05-11 10:40 | PC.NURSE ---
This RN went into pt room after speaking with JEN Sage dc in, this RN went over risks and benefits with pt leaving and our concerns of pt leaving. Pt became tearful and verbally understood but still wanted to leave, family at bedside who will be her ride home, IV removed at this time.
[2025-05-11 10:43] VITALS: BP 0/0; PULSE 0; RESP 0; TEMP -17.7; TEMP 0; O2SAT 0
--- NOTE | 2025-05-11 10:48 | MHC.RECOVRN ---
Addendum entered by Heidy Paul RN 05/11/25 12:38: Add: During our visit when pt. was considering AMA I provided her with education r/t the risks r/t untreated cardiac issues and how methadone increases these risks. Original Note: T/W met with pt. in ED 4 following referral received for OD on methadone. Pt sitting up in bed awake and alert. She was getting ready to AMA due to needing her methadone Dr. Blanco also meeting with pt. He was informed by t/w that methadone was verified earlier by RN and not yet ordered. He ordered and pt. received. Although pt. being admitted for cardiac reasons she will continue to receive her methadone as she is being closely monitored and reports she will leave without it which places her at a very constantine risk for cardiac events. Pt he OD at home and room mate had called 911. Pt reports she has several supplies of narcan in her house but room mate did not know how to use. Room mate present during visit and educated on Narcan use. Pt's tox positive for methadone, fentanyl, bzo and THC Pt reports she has been on methadone 55mg for 2 years successfully but sometimes can not get to the clinic so she buys on the street, which is what happened yesterday. Pt also identifies extreme anxiety being an issue without any treatment or resources. Pt is being admitted for cardiac work up. Pt was provided with folder of resources for [facility] and MH and t/w will revisit pt. tomorrow when more comfortable for full assessment and to offer assistance with resources. Report provided to Estefanía Fuller NP.
--- NOTE | 2025-05-11 10:57 | P.CONCA_ITS ---
History of Present Illness History of Present Illness Date of Service: 05/11/25 Requesting physician: Poli Blanco Consult reason: troponin elevation Chief complaint: unresponsive Narrative: I was consulted to see Martita in cardiology consultation today for elevated troponin. Patient is 65 year female with prior history of drug abuse on methadone, neuropathy PVCs came to the hospital with overdose. Patient says she could not get her methadone and she bought what she thought was heroin off the street. Then she passed out. She had to be revived but did not require any CPR but require oxygen and Ambu. Patient then received Narcan and recovered. U tox positive for fentanyl. Troponins were drawn which was slightly elevated but flat. Patient was admitted for repeat troponins but she has now signed out against medical advice. EKG shows left bundle-branch block. She has sternal pain which is reproducible. She does not have any exertional chest pain. She has never had any prior cardiac workup in her system for left bundle-branch block. Review of Systems 2 Constitutional: Constitutional: Reports no additional constitutional complaints Eyes: Eyes: Reports no additional eye complaints Cardiovascular: Cardiovascular: Reports no additional cardiovascular complaints Neurologic: Reports memory loss and Reports other (Neuropathic pain) Psychiatric: Psychiatric: Reports anxiety, Reports memory loss and Reports mood swings PMFSH Past Medical History Medical History Opioid use disorder Trigeminal neuralgia History of thoracic outlet syndrome Family History Family History Other No family history of coronary artery disease Surgical History Surgical History History of hysterectomy Social History Social History Household Members: None Housing: House Alcohol intake: never Patient Tobacco Use Status: Former Tobacco user Tobacco use type: Cigarette Substance Use Type: Heroin and Marijuana Advance Directives: No Advance Directives Information Provided: Yes Patient : No service: No Current occupational status: unemployed Travel History Ebola Risk: Travel/Contact With Anyone From Affected Area/s: No Has Patient Experienced Ebola Symptoms: No Meds Allergies Allergy/AdvReac Type Severity Reaction Status Date / Time Sulfa (Sulfonamide Allergy Intermediate SWELLING Verified 05/10/25 18:46 Antibiotics) From [facility] Allergy Unknown SWELLING Uncoded 05/10/25 18:46 Home Medications ?Medication ?Instructions ?Recorded ?Confirmed ?Last Taken ?Type methadone 10 mg/mL oral 65 mg PO DAILY 06/11/22 06/11/22 06/11/22 History concentrate (Methadone Intensol) Physical Exam 2 Vital Signs: Vital Signs: Last Vital Signs Temp 0 F L 05/11/25 10:43 Pulse 0 L 05/11/25 10:43 Resp 0 L 05/11/25 10:43 BP 0/0 L 05/11/25 10:43 Pulse Ox 0 L 05/11/25 10:43 O2 Del Method Room Air 05/11/25 08:39 BMI result Body Mass Index 28.3 Const: General: cooperative, comfortable, alert, awake and anxious N utritional Appearance: underweight Orientation/consciousness: patient oriented x3 Limitations: no limitations HEENT: Head: Yes normocephalic and Yes atraumatic Neck: Neck: Yes trachea midline, Yes supple and Yes no JVD Resp: Effort & Inspection: normal respiratory effort Auscultation: clear to auscultation bilaterally Cardio: Jugular venous distension: no JVD Rate: regular rate Rhythm: r egular rhythm Heart sounds: S1 normal heart sound present, S2 normal heart sound present, no click, no gallops and no murmurs GI: Auscultation: normal bowel sounds Skin: General skin exam: no rashes or lesions noted Neuro: General: patient oriented x3 and no focal motor deficits Extrem: General: Yes no clubbing, cyanosis or edema Objective Labs and Meds 05/10/25 22:03 05/10/25 22:03 Lab results: Laboratory Results - last 24 hr 05/10/25 05/10/25 05/11/25 22:03 23:36 01:11 WBC 5.8 RBC 4.37 Hgb 13.7 Hct 37.1 MCV 84.9 MCH 31.4 MCHC 36.9 H RDW 12.4 Plt Count 146 L MPV 11.5 Immature Gran % (Auto) 0.3 Neut % (Auto) 64.1 Lymph % (Auto) 28.0 [place] % (Auto) 6.2 Eos % (Auto) 0.9 Baso % (Auto) 0.5 Lymph # (Auto) 1.6 [place] # (Auto) 0.4 Eos # (Auto) 0.1 Baso # (Auto) 0.0 Abs Immat Gran (auto) 0.02 Absolute Neuts (auto) 3.7 Absolute Nucleated RBC 0.000 Nucleated RBC % (auto) 0.0 Sodium 130 L Potassium 3.6 Chloride 97 Carbon Dioxide 25 Anion Gap 12 BUN 11 Creatinine 0.95 Estim Creat Clear Calc 56.9 Estimated GFR 59 Random Glucose 148 H Calcium 8.7 D Magnesium 1.9 Total Bilirubin 1.0 Direct Bilirubin 0.4 AST 57 H ALT 37 H Alkaline Phosphatase 52 Troponin I High Sens 54.5 H* D 105.8 H* D Total Protein 6.6 Albumin 3.9 TSH 1.01 Free T4 1.21 Urine Color Yellow Urine Appearance Clear Urine pH 6.5 Ur Specific [place] <= 1.005 Urine Protein Negative Urine Glucose (UA) Negative Urine Ketones Negative Urine Blood Negative Urine Nitrite Negative Ur Leukocyte Esterase Trace H Urine RBC 0-2 Urine WBC 0-5 Ur Squamous Epith Cells 0-2 Urine Bacteria None Seen Hyaline Casts 0-2 Urine Opiates Screen Not Detected Ur Buprenorphine Scrn Not Detected Ur Oxycodone Screen Not Detected Urine Methadone Screen Positive H Urine Fentanyl Screen POSITIVE H Ur Barbiturates Screen Not Detected Ur Phencyclidine Scrn Not Detected Ur Amphetamines Screen Not Detected U Benzodiazepines Scrn POSITIVE H Urine Cocaine Screen Not Detected U Marijuana (THC) Screen POSITIVE H Ethyl Alcohol < 10 Assessment and Plan (1) Elevated troponin: Status: Acute Patient noted to have elevated troponin with musculoskeletal chest pain which is reproducible along with underlying left bundle-branch block. She has had troponin elevation in the past. This most likely related to hypoxemia related to her respiratory depression from accidental overdose. She signed out against medical advice. We discussed about elevated troponins and possible underlying coronary artery disease given her risk factors including age, prior smoking and she has underlying left bundle-branch block. She will need outpatient myocardial perfusion imaging if she follows through. Will arrange for it as an outpatient. Also needs an echocardiogram to assess for cardiac function given her left bundle-branch block. She is most bothered about her pain (2) Left bundle branch block: Status: Acute Left bundle-branch block requires underlying workup for cardiac disease. Discussed with her. Will try to set her up as outpatient for workup. Procedures Date of Service Date of Service: 05/11/25
--- NOTE | 2025-05-11 11:36 | MHC.CM.PN ---
PT LEFT AGAINST MEDICAL ADVICE PRIOR TO CM ASSESSMENT AND DELIVERY OF DAON.
--- NOTE | 2025-05-11 12:49 | PM.DS ---
DS: Providers Provider Date of Service: 05/11/25 Date of admission: 05/11/25 07:03 Date of discharge: 05/11/25 Primary care physician: Unknown Physician Consults: 05/11/25 04:07 Addiction Medicine Provider Routine Consulting Provider: Addiction Covering Reason for consultation: accidental overdose on methadone Has provider been notified: No 05/11/25 04:47 Consult to Case Management Routine Comment: fidning help with transportation to meth clinic 05/11/25 04:53 Consult to Psychiatry Routine Consulting Provider: [facility] Psych Covering Reason for consultation: severe depression Has provider been notified: No 05/11/25 05:41 Consult to Cardiology Routine Consulting Provider: [facility] Cardiovascular Specialists Reason for consultation: elevated troponin DS: Diagnosis Discharge Diagnosis (1) Accidental overdose: Status: Acute (2) Elevated troponin: Status: Acute (3) Left bundle branch block: Status: Acute DS: Summary Hospital Course Hospital Course: 65 yo female with PMH substance use disorder on methadone for last 2 years, anorexia , depression, SWETA, neuropathy, previous overdose, trigeminal neuralgia, hx of thoracic outlet syndrome, hysterectomy presents to ED BIBA for overdose and unresponsiveness requiring narcan 8 mgs. Pt did not require CPR but received ambu bag at the scene. Pt currently awake, alert and able to answer questions and follow commands. Pt is able to protect her airway. CT head and cervical spine negative for acute findings. Pt states she missed her window to get her methadone and bought heroin on the street. Pt does not remember what happened after taking the heroin. Tox screen positive for fentanyl, methadone, benzos and marijuana and negative for cocaine. Pt is experiencing significant depression but denies SI, HI or AVH. roponins elevated and cardiology recommends pt be admitted for repeat troponin at 7AM. Pt does not require heparin per truck jumper. ECG Sinus Kip, rate 54, KEN, LAD, LBBB. Na 130. K 3.1 and after supplementation, 3.6. At end of HPI, pt stated she wanted to leave AMA but then agreed to stay and was able to use rest room and rest. Hospital course Patient again requesting to sign out AMA. Met with patient and patient agreed to take methadone and wait for cardiology consult. Cardiology saw patient recommended echo however patient again became adamant about signing out AMA. Ultimately she left AMA without further treatment. Time Attestation Discharge Coordination Time (in mins): 35 Quality: Safe Use of Opioids Does Pt have an Active Cancer Diagnosis on the Problem List?: No Quality: Stroke Does the patient have a stroke diagnosis?: No Physical Exam Vital Signs: Vital Signs: Last Vital Signs Temp 0 F L 05/11/25 10:43 Pulse 0 L 05/11/25 10:43 Resp 0 L 05/11/25 10:43 BP 0/0 L 05/11/25 10:43 Pulse Ox 0 L 05/11/25 10:43 O2 Del Method Room Air 05/11/25 08:39 BMI result Body Mass Index 28.3 DS: Data Data Completed and Pending Labs on day of discharge: Laboratory Results - last 24 hr 05/10/25 05/10/25 05/11/25 22:03 23:36 01:11 WBC 5.8 RBC 4.37 Hgb 13.7 Hct 37.1 MCV 84.9 MCH 31.4 MCHC 36.9 H RDW 12.4 Plt Count 146 L MPV 11.5 Immature Gran % (Auto) 0.3 Neut % (Auto) 64.1 Lymph % (Auto) 28.0 [place] % (Auto) 6.2 Eos % (Auto) 0.9 Baso % (Auto) 0.5 Lymph # (Auto) 1.6 [place] # (Auto) 0.4 Eos # (Auto) 0.1 Baso # (Auto) 0.0 Abs Immat Gran (auto) 0.02 Absolute Neuts (auto) 3.7 Absolute Nucleated RBC 0.000 Nucleated RBC % (auto) 0.0 Sodium 130 L Potassium 3.6 Chloride 97 Carbon Dioxide 25 Anion Gap 12 BUN 11 Creatinine 0.95 Estim Creat Clear Calc 56.9 Estimated GFR 59 Random Glucose 148 H Calcium 8.7 D Magnesium 1.9 Total Bilirubin 1.0 Direct Bilirubin 0.4 AST 57 H ALT 37 H Alkaline Phosphatase 52 Troponin I High Sens 54.5 H* D 105.8 H* D Total Protein 6.6 Albumin 3.9 TSH 1.01 Free T4 1.21 Urine Color Yellow Urine Appearance Clear Urine pH 6.5 Ur Specific [place] <= 1.005 Urine Protein Negative Urine Glucose (UA) Negative Urine Ketones Negative Urine Blood Negative Urine Nitrite Negative Ur Leukocyte Esterase Trace H Urine RBC 0-2 Urine WBC 0-5 Ur Squamous Epith Cells 0-2 Urine Bacteria None Seen Hyaline Casts 0-2 Urine Opiates Screen Not Detected Ur Buprenorphine Scrn Not Detected Ur Oxycodone Screen Not Detected Urine Methadone Screen Positive H Urine Fentanyl Screen POSITIVE H Ur Barbiturates Screen Not Detected Ur Phencyclidine Scrn Not Detected Ur Amphetamines Screen Not Detected U Benzodiazepines Scrn POSITIVE H Urine Cocaine Screen Not Detected U Marijuana (THC) Screen POSITIVE H Ethyl Alcohol < 10 Discharge Plan Discharge Anticipated Discharge Date/Time: 05/11/25 10:28 Patient Disposition: Left Against Medical Advice Discharge Diagnosis: Accidental OD Referrals: Physician,Unknown J [Primary Care Provider] - 1 Week Discharge Medications: Continued methadone [Methadone Intensol] 10 mg/mL Concentrate 55 mg PO DAILY Discharge Orders: Discharge Order (Routine); Ordered 05/11/25 Ordered By: Poli Blanco Diet: Advance to usual diet Activity on Discharge: As tolerated Print Language: Bahraini Care Plan Goals: AMA Health Concerns: Avoid all recreational drugs. Follow up with the PCP next available Plan of Treatment: AMA Assessment: AMA Discharge Date/Time: 05/11/25 10:48
== END 2025-05-11 10:48 | disposition left against medical advice (07) ==
LOC: HO.ED 05-11 04:00 → HO.EDOVER 05-11 07:04 → HO.IMC 05-11 08:33 → HO.EDOVER 05-11 10:36
PROVIDERS: Nurse Practitioner Family; Admitting Provider Student in an Organized Health Care Education/Training Program; Emergency Provider Emergency Medicine; Visit Provider Hospitalist
DX: R79.89 Other specified abnormal findings of blood chemistry (principal); I44.7 Left bundle-branch block, unspecified; R07.89 Other chest pain; T65.91XA Toxic effect of unspecified substance, accidental (unintentional), initial encounter; R40.4 Transient alteration of awareness; Y92.9 Unspecified place or not applicable; R94.31 Abnormal electrocardiogram [ECG] [EKG]; E87.1 Hypo-osmolality and hyponatremia; R00.1 Bradycardia, unspecified; E87.6 Hypokalemia; F19.90 Other psychoactive substance use, unspecified, uncomplicated; F11.20 Opioid dependence, uncomplicated; Z53.29 Procedure and treatment not carried out because of patient's decision for other reasons; Z79.899 Other long term (current) drug therapy
CPT/HCPCS: 36415; 70450; 72125; 80048; 80076; 80307; 81001; 83735; 84439; 84443; 84484; 85025; 93005; 99222; 99285; S9485

== ENCOUNTER → 2025-05-10 19:57 | Outpatient (BNV) | payer MEDICARE, MEDICAID, SELFPAY | PROVIDERS: Emergency Provider Emergency Medicine; Visit Provider Nurse Practitioner Family | DX: T50.901D Poisoning by unspecified drugs, medicaments and biological substances, accidental (unintentional), subsequent encounter (principal); R79.89 Other specified abnormal findings of blood chemistry; I44.7 Left bundle-branch block, unspecified; Z53.29 Procedure and treatment not carried out because of patient's decision for other reasons | CPT/HCPCS: 99235; 99499 ==

== ENCOUNTER → 2025-05-10 21:38 | Outpatient (BNV) | payer MEDICARE, MEDICAID, SELFPAY | PROVIDERS: Emergency Provider Emergency Medicine; Visit Provider Radiology Diagnostic Radiology | DX: R40.20 Unspecified coma (principal); J84.89 Other specified interstitial pulmonary diseases | CPT/HCPCS: 70450; 72125 ==

== ENCOUNTER → 2025-05-10 21:39 | Outpatient (BNV) | payer MEDICARE, MEDICAID, SELFPAY | PROVIDERS: Admitting Provider Student in an Organized Health Care Education/Training Program; Emergency Provider Emergency Medicine; Visit Provider Internal Medicine Cardiovascular Disease | DX: I44.7 Left bundle-branch block, unspecified (principal); R00.1 Bradycardia, unspecified; I51.7 Cardiomegaly | CPT/HCPCS: 93010 ==

== ENCOUNTER → 2025-05-11 07:03 | Outpatient (BNV) | payer MEDICARE, MEDICAID, SELFPAY | PROVIDERS: Admitting Provider Student in an Organized Health Care Education/Training Program; Emergency Provider Emergency Medicine; Visit Provider Internal Medicine Cardiovascular Disease | DX: R79.89 Other specified abnormal findings of blood chemistry (principal); I44.7 Left bundle-branch block, unspecified | CPT/HCPCS: 99222 ==

== ENCOUNTER 2025-06-04 09:05 | Outpatient (AMB) | payer MEDICARE, MEDICAID, SELFPAY ==
--- NOTE | 2025-06-04 09:22 | A.OFFPC_ITS ---
Vital Signs 06/04/25 09:28 Height 5 ft 3 in Weight 49.442 kg BMI 19.3 BP 120/60 Respiration 14 Pulse 49 L Pulse Source Pulse Oximeter Temp 97.3 F Temp Source Temporal Artery Scan Pulse Oximetry (%) 99 Oxygen Delivery Method Room Air Intake Visit Reasons: New Patient - see comments Marketing Project Manager Required: No Accompanied by: Self / Same As Patient Allergies Sulfa (Sulfonamide Antibiotics) Allergy (Intermediate, Verified 06/04/25 09:27) SWELLING From [facility] Allergy (Unknown, Uncoded 06/04/25 09:27) SWELLING Medication List - Last Reconciled 06/04/25 by BRANDYN Saha methadone (Methadone Intensol) 60 mg PO DAILY sertraline 50 mg PO DAILY HPI HPI Comments History of Present Illness Details 65 year old female with OUD on methadone presents to the office to establish care and for hospital follow-up. She was admitted to [facility] after being found unresponsive due to opiate overdose requiring 8 mg of Narcan. She did not require CPR but did require Ambu bag at the scene. On admission, she was able to answer questions and follow commands and was able to protect her airway CT of the head and neck negative for any acute intracranial or osseous abnormalities. Her tox screen was positive for fentanyl, methadone, benzos, marijuana and negative for cocaine. She had a door significant depression and anxiety. Troponins were elevated at 54.5 increased to 105.8. EKG showed sinus bradycardia, rate 52 with left bundle-branch block that had been noted on prior EKGs. No ST elevations or depressions. She was admitted to [facility]. She was evaluated by Cardiology who felt the elevated troponins were related to hypoxemia rather than a type 1 NSTEMI following the accidental opiate overdose. Unfortunately the patient had signed out against medical advice and given risk factors including left bundle branch blocks, smoking history she was recommended for outpatient myocardial perfusion imaging as well as echocardiogram. Upon discharge, Cardiology did order stress test and echocardiogram which is scheduled on 07/09. She denies any ongoing chest pain. Opiate use disorder-on methadone 60 mg daily and follows with [facility]. She does report ongoing opiate use and does desire complete cessation. Reports last use was 3 days ago. She does understand the risks of overdose. She states she has been to NA and AA but finds these groups to be triggering due to manipulative participants Poor dentition-missing most of her teeth and has significant anxiety related to past trauma at the dentist and require sedation. She is calling around for appointment. Major depressive disorder/anxiety-not following with any providers at this time. No SI/HI. PHQ-9 score 11, sweta 7 score 17. Reports anxiety is her primary issue. Malnutrition-using and chores Former smoker-quit 6 years ago but is not following for lung cancer screening Has [facility] in place Concerns: As above Health maintenance: Overdue for screening mammogram and colonoscopy. Due for DEXA scan. No longer undergoing Pap smears ROS: General: No fevers, malaise, unintentional weight loss HEENT: No blurred vision, diplopia. No sore throat, nasal congestion, rhinorrhea, sinus pain, ear pain Cardiovascular: No chest pain, palpitations, or leg edema Respiratory: No shortness of breath, wheezing, cough GI: No abdominal pain, nausea, vomiting, diarrhea, constipation, melena, hematochezia : No dysuria, hematuria, increased urinary frequency, decreased urinary output MSK: No myalgia, back pain Neuro: No headaches, weakness, paresthesias Skin: No rashes or lesions EXAM: Constitutional - Awake and Alert, No apparent distress Eyes - PERRL Cardiovascular - S1S2, RRR, No edema Respiratory - Normal lung expansion, Normal respiratory effort, No respiratory distress, CTA bilaterally Extremities - no calf tenderness bilaterally, no swelling Skin - Warm/Dry Neurological - Alert & oriented x3 Psychological - Appropriate affect [facility] Medical History (Updated 06/04/25 @ 17:51 by BRANDYN Saha) Protein calorie malnutrition Anxiety Major depressive disorder Intravenous drug abuse Opioid use disorder Trigeminal neuralgia History of thoracic outlet syndrome Surgical History History of hysterectomy Family History Other No family history of coronary artery disease Social History Household Members: None Housing: House Alcohol intake: never Patient Tobacco Use Status: Former Tobacco user Tobacco use type: Cigarette Substance Use Type: Heroin and Marijuana service: No Current occupational status: unemployed Questionnaire PHQ-9 Over the last 2 weeks, how often have you been bothered by any of the following problems? 1. Little interest or pleasure in doing things: several days 2. Feeling down, depressed, or hopeless: several days 3. Trouble falling or staying asleep, or sleeping too much: more than half the days 4. Feeling tired or having little energy: more than half the days 5. Poor appetite or overeating: more than half the days 6. Feeling bad about yourself - or that you are a failure or have let yourself or your family down: several days 7. Trouble concentrating on things, such as reading the newspaper or watching te levision: several days 8. Moving or speaking so slowly that other people could have noticed. Or the opposite - being so fidgety or restless that you have been moving around a lot more than usual: several days 9. Thoughts that you would be better off or of hurting yourself in some way: not at all Total score: 11 Source: Developed by Drs. Rogelio Arrington, Sophie Jose, Bernabe Ruiz and colleagues, with an educational vanessa from [employer]. Thrive Questionnaire Date Thrive assessed: 06/04/25 I am a: Patient What is your living situation today?: I have a steady place to live Within the past 12 months, did the food you bought not last and you didn't have the money to get more?: Never true Within the past 12 months, did you worry whether your food would run out before you got money to buy more?: Never true Do you have trouble paying for medicines?: No Do you have trouble getting transportation to medical appointments?: Yes Do you have trouble paying your heating and electricity bill?: No Do you have trouble taking care of your child, family member or friend?: No Do you have trouble with day-to-day activities such as bathing, preparing meals, shopping, managing finances, etc.?: No Are you currently unemployed and looking for a job?: No Are you interested in more education?: No Please select the resources that you would like help with: None THRIVE Score: 1 SWETA-7 AMB Questionnaire SWETA-7 Date SWETA - 7 assessed: 06/04/25 Feeling nervous, anxious, or on edge: 3 = Nearly every day Not being able to stop or control worryin = Nearly every day Worrying too much about different things: 2 = More than half the days Trouble relaxin = Nearly every day Being so restless that it is hard to sit still: 2 = More than half the days Becoming easily annoyed or irritable: 2 = More than half the days Feeling afraid as if something awful might happen: 2 = More than half the days Total SWETA-7 score (0-4 normal; 5-9 mild; 10-14 moderate; 15-21 severe): 17 Source: Developed by Drs. Rogelio Arrington, Sophie Jose, Bernabe Ruiz and colleagues, with an educational vanessa from [employer]. Physical exam (Primary Care) Vital Signs: Last Vital Signs Temp 97.3 F 06/04/25 09:28 Pulse 49 L 06/04/25 09:28 Resp 14 06/04/25 09:28 BP 120/60 06/04/25 09:28 Pulse Ox 99 06/04/25 09:28 Oxygen Delivery Method Room Air 06/04/25 09:28 BMI result Body Mass Index 19.3 Tobacco/Smoking Status: Tobacco use Status Patient Tobacco Use Status Former Tobacco user 06/04/25 09:23 Tobacco use type Cigarette 06/04/25 09:23 PHQ-9: PHQ-9 Score PHQ-9: Total score 11 06/04/25 09:47 Thrive Assessment: Date of Thrive Assessment Date Thrive assessed 06/04/25 06/04/25 09:23 Coding Level of Care Code New Pt Level 5 (35209) Complex EM visit Add On G2211 Diagnoses Hospital discharge follow-up Z09 Opioid overdose T40.2X1A Opioid use disorder F11.90 Left bundle branch block I44.7 Major depressive disorder F32.9 Anxiety F41.9 Assessment & Plan Assessment & Plan (1) Hospital discharge follow-up: Code(s): Z09 - Encounter for follow-up examination after completed treatment for conditions other than malignant neoplasm Category: Medical Plan: Hospital discharge records reviewed including history and physical, discharge summary, Cardiology consult, EKG, labs. Plan as below (2) Opioid overdose: Code(s): T40.2X1A - Poisoning by other opioids, accidental (unintentional), initial encounter Category: Medical Plan: Accidental. Tox screen positive for fentanyl, opiates, benzos, marijuana. See below (3) Opioid use disorder: Code(s): F11.90 - Opioid use, unspecified, uncomplicated Category: Medical Plan: Continue methadone 60 mg daily and follow-up with clinic as scheduled. Counseled against illicit drug use especially while on methadone to prevent overdose. Narcan prescribed. Patient agreeable to checking for hepatitis-C as well as HIV which will be confirmed with confirmatory test if antibody positive (4) Left bundle branch block: Code(s): I44.7 - Left bundle-branch block, unspecified Category: Medical Plan: With chest pain and type 2 NSTEMI while admitted likely secondary to hypoxemia following overdose. Unfortunately patient left AMA but did review cardiology consult. Follow-up for stress test and echocardiogram as scheduled (5) Major depressive disorder: Code(s): F32.9 - Major depressive disorder, single episode, unspecified Category: Medical Plan: Uncontrolled. Initiate sertraline 50 mg daily. Counseled on dosing and side effects. Recommend following with and establishing with psychiatry/counseling (6) Anxiety: Code(s): F41.9 - Anxiety disorder, unspecified Category: Medical Plan: Uncontrolled. Initiate sertraline 50 mg daily and can also use hydroxyzine as needed. Consult on dosing and side effects. Recommend following with and establishing with psychiatry and counseling Plan Follow-up in the office in 1 month to discuss depression and anxiety. She is given resources for Psychiatry. Labs to be completed following visit today. Referred for screenings including mammogram and DEXA scan. She is not interested in colonoscopy but is agreeable to Cologuard which is ordered Time spent with patient who has not been evaluated in 15 years- >45 minutes Time spent reviewing documentation as above and documentation- >15 minutes Orders: Orders Lipid Panel Today Z76.89 - Persons encountering health services in other specified circumstances Vitamin D 25-OH Total Today Z76.89 - Persons encountering health services in other specified circumstances HIV Ab/Ag Today F19.10 - Other psychoactive substance abuse, uncomplicated XR DEXA axial skeleton Today Z78.0 - Asymptomatic menopausal state Basic Metabolic Panel Today Z76.89 - Persons encountering health services in other specified circumstances Complete Blood Count Auto Diff Today Z76.89 - Persons encountering health services in other specified circumstances Liver Panel Today Z76.89 - Persons encountering health services in other specified circumstances TSH reflex Free T4 Today Z76.89 - Persons encountering health services in other specified circumstances MM tomosynthesis screening BI Today Z12.31 - Encounter for screening mammogram for malignant neoplasm of breast Hepatitis B,C Profile Today F19.10 - Other psychoactive substance abuse, uncomplicated Hepatitis C Viral Load Today F19.10 - Other psychoactive substance abuse, uncomplicated Referrals Cologuard Test Z12.11 - Encounter for screening for malignant neoplasm of colon, Z12.12 - Encounter for screening for malignant neoplasm of rectum, Z12.31 - Encounter for screening mammogram for malignant neoplasm of breast Medications: New sertraline Take 1/2 tab daily x7 days, then take 1 tab daily 50 mg PO DAILY 30 tabs 0RF hydroxyzine HCl 25 mg PO BID PRN 60 tabs 1RF anxiety, sleep Patient Instructions: Check sickweather to find a counselor and a psychiatrist
[2025-06-04 09:28] VITALS: BP 120/60; PULSE 49; RESP 14; TEMP 36.3; O2SAT 99; BMI 19.3
== END 2025-06-04 10:11 | disposition home or self-care (01) ==
LOC: HO.HMCHD 09:09
PROVIDERS: Visit Provider Physician Assistant
DX: I44.7 Left bundle-branch block, unspecified (principal); Z09 Encounter for follow-up examination after completed treatment for conditions other than malignant neoplasm; T40.2X1A Poisoning by other opioids, accidental (unintentional), initial encounter; F11.90 Opioid use, unspecified, uncomplicated; F32.9 Major depressive disorder, single episode, unspecified; F41.9 Anxiety disorder, unspecified

== ENCOUNTER 2025-06-04 10:19 | Outpatient (REF) | payer MEDICARE, OTHER, SELFPAY ==
[2025-06-04 13:40] LABS: MANUAL DIFF FLAG NO
[2025-06-04 13:56] LABS: Hematocrit 42.7 % (37.0-47.0); Hemoglobin 14.3 g/dl (12.0-16.0); Imm Gran Abs Auto 0.01 X10*3/uL (0.00-0.03); Imm Gran Pct Auto 0.2 % (0.0-0.4); Lymphocytes Absolute Auto 1.5 X10*3/uL (1.2-4.9); Mean Corpuscular HGB Conc 33.5 g/dl (31.0-35.0); Mean Corpuscular Hemoglobin 31.0 pg (27.0-33.0); Mean Corpuscular Volume 92.4 fL (80.0-98.0); NRBC Abs Auto 0.000 X10*3/uL (0.0-0.012); NRBC Pct Auto 0.0 /100WBC (0.0-0.2); Platelet Count 150 X10*3/uL (160-400); Red Blood Count 4.62 X10*6/uL (4.20-5.50); White Blood Count 4.8 X10*3/uL (4.8-10.8)
[2025-06-04 14:35] LABS: Alanine Aminotransferase 52 U/L (0-31); Albumin Level 4.7 g/dL (3.5-5.0); Alkaline Phosphatase 55 U/L (39-117); Anion Gap 12 (12-20); Aspartate Amino Transferase 74 U/L (5-31); Blood Urea Nitrogen 6 mg/dL (9-16); Calcium 9.3 mg/dL (8.4-10.2); Carbon Dioxide 29 mmol/L (22-29); Chloride 102 mmol/L (96-108); Cholesterol 151 mg/dL (<200); Estimated Glomerular Filt Rate > 60; HDL Cholesterol 43 mg/dL (>40); Potassium 4.1 mmol/L (3.3-5.1); Sodium 139 mmol/L (135-145); Total Protein 7.4 g/dL (6.5-8.0); Triglycerides 68 mg/dL (<150)
[2025-06-04 14:36] LABS: HBS Num1 0.00 mIU/mL (0-7.99); HBc Num1 0.20 S/CO (0.00-0.79); HBsAGNum1 0.42 S/CO (0.00-0.99); HIV Num 1 0.05 S/CO (0.00-0.99); Hepatitis B Surface Antigen Negative (Negative); ~HepC Num1 12.70 S/CO (0.00-0.79); ~Hepatitis B Surface Antibody NONREACTIVE (Nonreactive); ~Hepatitis C Antibody Reactive (Nonreactive)
[2025-06-05 14:14] LABS: HCV Log PCR 6.12 Log IU/mL (NOT DETECTED); HepC Viral Load 1330000 IU/mL (NOT DETECTED)
== END 2025-06-04 10:20 | disposition home or self-care (01) ==
LOC: HO.10HDL 10:19
PROVIDERS: Visit Provider Physician Assistant
DX: Z09 Encounter for follow-up examination after completed treatment for conditions other than malignant neoplasm (principal); T40.2X1D Poisoning by other opioids, accidental (unintentional), subsequent encounter; F11.90 Opioid use, unspecified, uncomplicated; I44.7 Left bundle-branch block, unspecified; F32.9 Major depressive disorder, single episode, unspecified; F41.9 Anxiety disorder, unspecified; Z76.89 Persons encountering health services in other specified circumstances; F19.10 Other psychoactive substance abuse, uncomplicated; Z13.30 Encounter for screening examination for mental health and behavioral disorders, unspecified; Z13.39 Encounter for screening examination for other mental health and behavioral disorders
CPT/HCPCS: 36415; 80048; 80061; 80076; 82306; 84443; 85025; 86704; 86706; 86803; 87340; 87389; 87522; 96127; 99202

== ENCOUNTER → 2025-07-05 07:49 | Outpatient (REF) | payer MEDICARE, MEDICAID, SELFPAY ==
--- NOTE | ~2025-07-05 | NM_ITS ---
Lexiscan Myocardial perfusion study Indication: Elevated troponin, left bundle-branch block Technique: The patient was brought in for a Lexiscan perfusion study on 07/05/2025 and was injected 0.4 mg of Lexiscan intravenously. Within a minute of this injection 25 mCi of sestamibi was given intravenously. Images were obtained using the SPECT gamma camera interlaced with the gating device. Images were obtained in supine position. Resting perfusion study was performed on 07/11/2025. Patient was administered 25 mCi of sestamibi intravenously at rest. Images were then obtained in supine position. Total DLP 71 mGy-cm. Images were processed with the software and compared side to side in short axis, horizontal long axis and vertical long axis views. Findings: Raw aquisition reviewed. The stress perfusion study showed no significant perfusion abnormality. Both uncorrected as well as CT attenuation corrected images were reviewed. The gated study shows normal LV systolic function with calculated LVEF of 71%. LV cavity is normal in size. The gated study shows normal wall thickening and contraction of segments. Resting study shows no significant perfusion abnormality. Gating at rest reveals normal wall motion with ejection fraction at 68%. The findings are consistent with no clear reversible or fixed perfusion abnormality. NM/NM cardiolite stress test Impression: 1. Myocardial perfusion imaging study shows normal myocardial perfusion. 2. Gated LVEF is 70% during stress and 68% during rest. 3. Transient ischemic dilatation not present. EKG component of the test reported separately. Electronically signed by: Leonard Brooks MD 07/11/2025 03:53 PM EDT
--- NOTE | 2025-07-05 07:51 | CA_ITS ---
Acquisition Time: 2025-07-05 08:58:48 Total Exercise Time: 00:02:00 Test Indications: ELEVATED TROP LBBB Medications: METHADONE Protocol: LEXISCAN Max HR: 102 BPM 66% of Pred: 153 BPM Max BP: 132/68 mmHG Max Work Load: 1.0 METS Pharmacological stress test with Lexiscan while pt marches in her chair, with reports of SOB and nausea, with frequent PVCs (polymorphic) and vent bigeminy, with normotensive response to injection. Nondiagnostic EKG For ischemia. In recovery, pt treated with IVP Aminophylline 75 mg to reverse Lexiscan after which pt feeling back to baseline. Nuclear images pending. Test reviewed with Dr. Brooks. Referred By: uBrke Kaur Electronically Signed By: James Ballesteros
== END ==
LOC: HO.CARD 07:49
PROVIDERS: Visit Provider Internal Medicine Cardiovascular Disease
DX: I44.7 Left bundle-branch block, unspecified (principal); I49.3 Ventricular premature depolarization; R79.89 Other specified abnormal findings of blood chemistry
CPT/HCPCS: 78452; 93017; A9500; J0280; J2785

== ENCOUNTER → 2025-07-05 07:51 | Outpatient (BNV) | payer MEDICARE, MEDICAID, SELFPAY | DX: R94.31 Abnormal electrocardiogram [ECG] [EKG] (principal); I44.7 Left bundle-branch block, unspecified | CPT/HCPCS: 78452; 93016; 93018 ==

== ENCOUNTER 2025-08-19 11:47 | Outpatient (AMB) | payer MEDICARE, MEDICAID, SELFPAY ==
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
[2025-08-19 11:57] VITALS: BP 101/48; PULSE 55; RESP 16; TEMP 36.4; O2SAT 96
--- OUTSIDE RECORDS SUMMARY | 2025-08-19 14:30 | XMS_ITS | Clinical Summary ---
Author Organization [facility] Address [address] [place] [phone] Phone Care Team Providers Care Magazine Feeder Name Role Phone Unavailable Primary Care Provider Unavailabl e Allergies Active Allergy Reactions Criticality Noted Date Comments Metronidazole Angioedema 01/11/2018 Sulfa (Sulfonamide Antibiotics) Hives 12/29 Medications amitriptyline (ELAVIL) 25 MG tablet Take 2 tablets (50 mg total) by mouth every evening. 60 tablet 8 Active Additional Information Patient not taking.Reported on 05/11/2020 ALPRAZolam (XANAX) 0.5 MG tablet Take 1 tablet (0.5 mg total) by mouth 3 (three) times a day. 60 tablet 8 Active Additional Information Patient not taking.Reported on 05/11/2020 phenytoin (DILANTIN EXTENDED) 100 MG ER capsule Take 1 capsule (100 mg total) by mouth 3 (three) times a day. 8 Active Additional Information Patient not taking.Reported on 05/11/2020 meloxicam (MOBIC) 7.5 MG tablet Take 1 tablet (7.5 mg total) by mouth daily as needed (vulvar pain). Do not combine with ibuprofen or naproxen. 14 tablet 0 Active clotrimazole (MYCELEX BRYAN) 10 mg bryan Take 1 Bryan (10 mg total) by mouth 4 (four) times a day as needed (oral thrush). 35 Bryan 1 0 Active Active Problems Problem Noted Date Diagnosed Date NSTEMI (non-ST elevated myocardial infarction) 0 01/11/2018 Nonintractable generalized i diopathic epilepsy without status epilepticus 01/11/2018 Generalized anxiety disorder 01/11/2018 Tobacco use 01/11/2018 Trigeminal neuralgia 01/11/2018 Chronic hepatitis C without hepatic coma 018 Social History Tobacco Use Types Packs/Day Years Used Date Smoking Tobacco: Every Day Cigarettes 0.5 40 Smokeless Tobacco: Never Tobacco Cessation:Ready to Q uit: Yes Education Answer Date Recorded Are you interested in more education? Not on delma e 04/03/2023 Are you concerned about learning? Not on file 04/03/2023 No 04/03/2023 No 04/03/2023 Digital Access Answer Date Recorded No 04/23/2023 No 04/23/2023 Reliable internet access at home? Not on file 04/23/2023 Device with a working camera? Not on file Comments Unknown Sex and Gender Information Value Date Recorded Sex Assigned at Not on file Legal Sex Female 6:28 PM EST Gender Identity Not on file Sexual Orientation Not on file Last Filed Vital Signs Vital Sign Reading Time Taken Comments Blood Pressure 131/68 05/11/2020 12:58 PM EDT Pulse 77 05/11/2020 12:58 PM EDT Temperature 36.9 C (98.4 F) 05/11/2020 12:58 PM EDT Respiratory Rate - - Oxygen Saturation 99% 05/11/2020 12:58 PM EDT Inhaled Oxygen Concentration - - Weight 46.7 kg (103 lb) 05/11/2020 12:58 PM EDT Height 162.6 cm (5' 4 ) 05/11/2020 12:58 PM EDT Body Mass Index 17.68 05/11/2020 12:58 PM EDT Plan of Treatment Health Maintenance Due Date Last Done Comments DEPRESSION SCREENING 1970 SMOKING Hx and SMOKELESS TOBACCO SCREENING 1971 HEPATITIS A VACCINES (1 of 2 - Risk 2-dose series) 1977 PNEUMOCOCCAL VACCINES (50+ years) (1 of 2 - PCV) 1977 MAMMOGRAM 1998 COLOGUARD 2003 COLONOSCOPY 2003 COLORECTAL CANCER SCREENING 2003 FIT TEST 2003 FOBT 2003 SIGMOIDOSCOPY 2003 VIRTUAL COLONOSCOPY 2003 ZOSTER VACCINES (1 of 2) 01/29/2008 RSV VACCINE (1 - Risk 60-74 years 1-dose series) 2018 PHENYTOIN (DILANTIN) LEVEL 09/22/201909/22, 02/21/2018 OSTEOPOROSIS SCREENING INITI AL (ONE-TIME) 2023 LIPID PANEL 02/21/2023 02/21/2018, 02/21/2018 Adult Td,Tdap Booster 07/05/2024 07/05/2014 INFLUENZA VACCINE (#1) 2025 COVID-19 VACCINE (2 - 2024-2 6 season) 2025 03/25/2021 HIB VACCINES Aged Out No longer eligi ble based on patient's age to complete this topic MENINGOCOCCAL VACCINES (ACWY) Aged Out No longer eligible based on patient's age to complete this topic MENINGOCOCCAL VACCINES (B) Aged Out N o longer eligible based on patient's age to complete this topic Medical Devices Not on file Procedures Procedure Name Priority Date/Time Associated Diagnosis Comments DILANTIN (FREE) LEVEL Routine 09/22/2018 3:07 PM EDT Generalized anxiety disorder LIPID PANEL Routine 02/21/2018 11:27 AM EDT Nonintractable generalized idiopathic epilepsy without status epilepticus from Last 3 Months or Most Recently Relevant to Health Maintenance Results * (ABNORMAL) Dilantin (free) level (09/22/2018 3:07 PM EDT) FREE DILANTIN <0.8(L) 1.0 - 2.0 mcg/mL [facility] DPT OF LAB MED AND PAT+ Blood 09/22/2018 3:07 PM EDT 09/22/2018 3:08 PM EDT us Emanuel Velasco MD LAB BLOOD ORDERABLES Final Result [facility] DPT OF LAB MED AND PAT+ [address] [place] [address] * (ABNORMAL) Lipid panel (02/21/2018 11:27 AM EDT) HDL 70 mg/dL [facility] Comment: Interpretation: Risk Level Females Decreased >55mg/dL Average 50-55 mg/dL Increased <50 mg/dL CHOLESTEROL 217 0 - 240 mg/dL [facility] TRIGLYCERIDES 72 30 - 160 mg/dL [facility] LDL 133(H) 50 - 129 mg/dL [facility] Comment: LDL levels in terms of risk for coronary heart disease: <100 mg/dL: Optimal 100-129 mg/dL: Near or above optimal 130-159 mg/dL: Borderline high 160-189 mg/dL: High >190 mg/dL: Very High CARDIAC RISK RATIO 3.1(L) 3.3 - 4.4 C [facility] Blood 02/21/2018 11:2 7 AM EDT 02/21/2018 11:31 AM EDT Emanuel Velasco MD LAB BLOOD ORDERABLES Final Result Performing Organization Address City/State/[facility] Co de Phone Number [facility] [address] [place] [address] from Last 3 Months or Most Recently Relevant to Health Maintenance Insurance [place] [id number] MEDICARE PART A & B Member Subscriber Plan / Payer (Ef fective 2001-Present) Name:Sepideh Sandoval Member ID:[id number] Relation to Subscriber:Self Name:Sepideh Sandoval Subscriber ID:[id number] Payer ID:[id number] Group ID:Not on file Type:Medicare Address: [facility] [employer] [facility] [address] [place] [address] MEDICARE PART A & B MEDICARE PART A & B MEDICARE PART A & B MEDICARE PART A & B MEDICARE PART A & B MEDICARE PART A & B MEDICARE PART A & B Additional Source Comments The information contained in this document represents components of the legal health record. It is not the complete legal health record.[facility]
--- OUTSIDE RECORDS SUMMARY | 2025-08-19 14:30 | XMS_ITS | Clinical Summary ---
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 Name Role Phone Unavailable Primary Care Provider Unavailabl e Social History Tobacco Use Types Packs/Day Years Used Date Smoking Tobacco: Never Assessed Comments Unknown Sex and Gender Information Value Date Recorded Sex Assigned at Not on file Legal Sex Female 9:15 AM EDT Gender Identity Not on file Sexual Orientation Not on file Plan of Treatment Health Maintenance Due Date Last Done Comments CT Colonography 1958 Colonoscopy 1958 Colorectal Cancer Screening 1958 Depression Screening 1958 FIT DNA/Cologuard 1958 FIT 1958 FOBT 1958 SDOH Screening 1958 Sigmoidoscopy 1958 Alcohol/Substance Use Screening 1970 Tobacco Screening 1970 Hepatitis C Screening 01/29/1976 DTaP/Tdap/Td Vaccines (1 - Tdap) 1977 Mammogram 1998 Pneumococcal Vaccine: 50+ Ye ars (1 of 1 - PCV) 01/29/2008 Zoster Vaccines (1 of 2) 01/29/2008 COVID-19 Vaccine (1 - 2023-2 5 season) 2025 Influenza Vaccine (#1) 2025 RSV Patients and Pa tients Aged 60 years or older (1 - 1-dose 75+ series) 2033 HIB Vaccines Aged Out No longer eligi ble based on patient's age to complete this topic HPV Vaccines Aged Out No longer eligi ble based on patient's age to complete this topic Hepatitis A Vaccines Aged Out No long er eligible based on patient's age to complete this topic Hepatitis B Vaccines Aged Out No long er eligible based on patient's age to complete this topic IPV Vaccines Aged Out No longer eligi ble based on patient's age to complete this topic Meningococcal B Vaccine Aged Out No l onger eligible based on patient's age to complete this topic Meningococcal Vaccine Aged Out No angel rosa eligible based on patient's age to complete this topic RSV under 20 months Aged Out No longe r eligible based on patient's age to complete this topic Rotavirus Vaccines Aged Out No longer eligible based on patient's age to complete this topic Insurance [place] [id number] [facility] FULL
== END 2025-08-19 13:43 | disposition home or self-care (01) ==
LOC: HO.HMCHD 11:47
PROVIDERS: PCP Physician Assistant; Visit Provider Physician Assistant
DX: F41.1 Generalized anxiety disorder (principal); F11.90 Opioid use, unspecified, uncomplicated; B19.20 Unspecified viral hepatitis C without hepatic coma; K04.7 Periapical abscess without sinus

== ENCOUNTER → 2025-08-19 11:47 | Outpatient (BNVA) | payer MEDICARE, MEDICAID, SELFPAY | PROVIDERS: PCP Physician Assistant; Visit Provider Physician Assistant | DX: F41.1 Generalized anxiety disorder (principal); B19.20 Unspecified viral hepatitis C without hepatic coma; K04.7 Periapical abscess without sinus; F19.10 Other psychoactive substance abuse, uncomplicated; F11.20 Opioid dependence, uncomplicated | CPT/HCPCS: 99212 ==

== ENCOUNTER 2025-09-23 14:58 | Outpatient (AMB) | payer MEDICARE, MEDICAID, SELFPAY ==
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
[2025-09-23 15:10] VITALS: BP 180/82; PULSE 66; RESP 20; TEMP 36.7; O2SAT 97; BMI 17.6
[2025-09-23 15:42] VITALS: BP 144/82
[2025-09-23 16:38] VITALS: PULSE 33
--- OUTSIDE RECORDS SUMMARY | 2025-09-23 18:24 | XMS_ITS | Clinical Summary ---
Author Organization [facility] Address [address] [place] [phone] Phone Care Team Providers Care State Pilot Name Role Phone Unavailable Primary Care Provider [...] FOBT 2003 SIGMOIDOSCOPY 2003 VIRTUAL COLONOSCOPY 2003 RSV VACCINE (1 - Risk 50-74 years 1-dose series) 01/29/2008 ZOSTER VACCINES (1 of 2) 01/29/2008 PHENYTOIN (DILANTIN) LEVEL 09/22/201909/22, 02/21/2018 OSTEOPOROSIS SCREENING [...] FREE DILANTIN <0.8(L) 1.0 - 2.0 mcg/mL [facility] DPT OF LAB MED AND PAT+ Blood 09/22/2018 3:07 PM EDT 09/22/2018 3:08 PM EDT us Emanuel Velasco MD LAB BLOOD ORDERABLES Final Result [facility] DPT OF LAB MED AND PAT+ [address] [place] [address] * (ABNORMAL) Lipid panel (02/21/2018 11:27 AM EDT) HDL 70 mg/dL [facility] Comment: Interpretation: Risk Level Females Decreased >55mg/dL Average 50-55 mg/dL Increased <50 mg/dL CHOLESTEROL 217 0 - 240 mg/dL [facility] TRIGLYCERIDES 72 30 - 160 mg/dL [facility] LDL 133(H) 50 - 129 mg/dL [facility] Comment: LDL levels in terms of risk for coronary heart disease: <100 mg/dL: Optimal 100-129 mg/dL: Near or above optimal 130-159 mg/dL: Borderline high 160-189 mg/dL: High >190 mg/dL: Very High CARDIAC RISK RATIO 3.1(L) 3.3 - 4.4 C [facility] Blood 02/21/2018 11:2 7 AM EDT 02/21/2018 11:31 AM EDT Emanuel Velasco MD LAB BLOOD ORDERABLES Final Result Performing Organization Address City/State/[facility] Co de Phone Number [facility] [address] [place] [address] from Last 3 Months or Most Recently Relevant to Health Maintenance Insurance MED[place] PART A [place] [id number] MEDICARE PART A & B MEDICARE PART A & B MEDICARE PART A & B MEDICARE PART A & B MEDICARE PART A & B MEDICARE PART A & B MEDICARE PART A & B MEDICARE PART A & B Additional Source Comments The information contained in this document represents components of the legal health record. It is not the complete legal health record.[facility]
--- OUTSIDE RECORDS SUMMARY | 2025-09-23 18:24 | XMS_ITS | Clinical Summary ---
Author Organization [facility] [employer] Address [address] [place] [address] [address] [place] [address] Care Team Providers Care Brick Handler Name Role Phone Unavailable Primary Care Provider [...] age to complete this topic Insurance [place] [phone] [facility] FULL
== END 2025-09-23 16:34 | disposition home or self-care (01) ==
LOC: HO.HMCHD 14:58
PROVIDERS: PCP Physician Assistant; Visit Provider Physician Assistant
DX: R00.1 Bradycardia, unspecified (principal)

== ENCOUNTER 2025-09-23 15:53 | Emergency (ER) | payer MEDICARE, SELFPAY ==
--- NOTE | 2025-09-23 15:54 | ECG_ITS ---
Test Reason : sob Blood Pressure : */* mmHG Vent. Rate : 61 BPM Atrial Rate : 61 BPM P-R Int : 152 ms QRS Dur : 140 ms QT Int : 480 ms P-R-T Axes : 76 -68 100 degrees QTcB Int : 483 ms Sinus rhythm with Fusion complexes Left axis deviation Left bundle branch block Abnormal ECG When compared with ECG of 10-May-2025 22:50, T wave inversion no longer evident in Inferior leads QT has shortened Referred By: Generic ED Physician Electronically Signed By: CARL FARMER
[2025-09-23 16:07] VITALS: BP 188/76; PULSE 69; RESP 18; TEMP 36.6; O2SAT 98; BMI 14.9
--- NOTE | 2025-09-23 16:13 | ED_ITS ---
HPI - General Adult General Chief complaint: Arrhythmia/Palpitations Stated complaint: heart issues Time Seen by Provider: 09/23/25 17:28 Source: patient Mode of arrival: ambulatory Limitations: no limitations History of Present Illness ED Provider: Dr. Roberts [facility] narrative: 65-year-old female history of bradycardia, left bundle branch block, PVC, anxiety presenting to ER for a methadone clinic. Patient was seen at methadone clinic was noted to be bradycardic. Other on clinic contacted her primary care doctor who directed her to the ER for evaluation. She is asymptomatic no chest pain no shortness of breath. Patient stated that she is in her normal state of health. Related Data Home Medications ?Medication ?Instructions ?Recorded ?Confirmed methadone 10 mg/mL oral 70 mg PO DAILY 09/23/25 concentrate (Methadone Intensol) Previous Rx's ?Medication ?Instructions ?Recorded naloxone 4 mg/actuation nasal 4 mg intranasal Q3M PRN opioid 06/04/25 spray (Narcan) overdose #2 ea Allergies Allergy/AdvReac Type Severity Reaction Status Date / Time Sulfa (Sulfonamide Allergy Intermediate SWELLING Verified 09/23/25 16:08 Antibiotics) From FLAGYL Allergy Unknown SWELLING Uncoded 09/23/25 16:08 Review of Systems 2 Review of Systems: Pertinent review of systems as mentioned in HPI. All other system otherwise negative. [facility] Past Medical History [facility] Narrative: Medical history as mentioned in HPI Medical History (Updated 09/23/25 @ 18:18 by Carmelina Roberts DO) Former cigarette smoker Malnutrition Hepatitis C Protein calorie malnutrition Anxiety Major depressive disorder Intravenous drug abuse Opioid use disorder Trigeminal neuralgia History of thoracic outlet syndrome Surgical History History of hysterectomy Family History Family History Other No family history of coronary artery disease Social History Social History Household Members: None Housing: House Alcohol intake: never Patient Tobacco Use Status: Former Tobacco user Tobacco use type: Cigarette e-Cigarette/Vaping Use: Never Used Substance Use Type: Heroin and Marijuana Advance Directives: No Advance Directives Information Provided: Yes service: No Current occupational status: unemployed Physical Exam ED Exam Exam: General: Pleasant, no distress, interacting appropriately Head: Normacephalic, atraumatic ENT: oral mucosa dry, neck supple, no tracheal deviation Cardiovascular: regular rate, irregular rhythm, no murmurs, rubbing, gallops Respiratory: CTAB, no wheeze, rales, rhonchi Neurological: Awake and alert, no facial droop noted Skin: Warm and dry Psychiatric: Appropriate mood and thoughts Vital Signs: Vital Signs - 24 hr 09/23/25 16:07 09/23/25 16:25 Temperature 97.8 F 98.4 F Pulse Rate 69 54 Respiratory Rate 18 12 Blood Pressure 188/76 H 169/65 H Pulse Oximetry 98 98 Oxygen Delivery Method Room Air Room Air BMI result Body Mass Index 14.9 Course Course Course Narrative: Rapid medical examination performed in triage by Tara Singh PA-C. Patient is a 65 year old assigned female at presenting to the emergency department with a low heart rate. Patient states she saw someone after the methadone clinic told her that her heart rate was low and they recommended she come here. Patient denies any complaints at this time. Detailed physical exam and review of systems are deferred to the first breaker feeder. EKG and labs ordered. orthotics technician aware. Medical Decision Making Medical Decision Making [facility] Narrative: 65-year-old female presented hospital today for abnormal EKG. EKG does shows left bundle branch block. She does have slight depression in the lateral leads on review. This appears to be similar to her prior EKG in the past. Patient does not have any active chest pain no shortness of breath. She is asymptomatic. I did review the monitor rhythm. Does appear to be some signs of intermittent bigeminy. I discussed to patient that I do recommend staying in the hospital for further monitoring given abnormal heart rhythm and potential echocardiogram in the morning and Cardiology evaluation. Patient does not want to stay in the hospital. She would like to go. I did discuss the risk with the patient as well. However patient continued stated that she would like to go home. No sign of STEMI however patient's troponin is negative. She is asymptomatic. We will plan to discharge patient with a close outpatient cardiology follow up. Differential Diagnosis Differential Diagnoses: The differential diagnosis associated with the presentation includes STEMI, ACS, PVCs Lab Data [facility] Lab Attestation statement: I reviewed the patient's lab results. 09/23/25 16:24 09/23/25 16:24 Labs: Lab Results 10/27/25 Range/Units 16:24 WBC 6.9 (4.8-10.8) X10*3/uL RBC 4.28 (4.20-5.50) X10*6/uL Hgb 13.3 (12.0-16.0) g/dl Hct 40.1 (37.0-47.0) % MCV 93.7 (80.0-98.0) fL MCH 31.1 (27.0-33.0) pg MCHC 33.2 (31.0-35.0) g/dl RDW 13.7 (11.0-16.0) % Plt Count 158 L (160-400) X10*3/uL MPV 11.5 (9.4-12.3) fL Immature Gran % (Auto) 0.3 (0.0-0.4) % Neut % (Auto) 60.2 (45-73) % Lymph % (Auto) 30.0 (20-40) % Leon % (Auto) 8.8 (2-11) % Eos % (Auto) 0.3 (0-4) % Baso % (Auto) 0.4 (0-2) % Lymph # (Auto) 2.1 (1.2-4.9) X10*3/uL Leon # (Auto) 0.6 (0.1-1.2) X10*3/uL Eos # (Auto) 0.0 (0.0-0.4) X10*3/uL Baso # (Auto) 0.0 (0.0-0.2) X10*3/uL Abs Immat Gran (auto) 0.02 (0.00-0.03) X10*3/uL Absolute Neuts (auto) 4.2 (2.0-8.3) x10*3/uL Absolute Nucleated RBC 0.000 (0.0-0.012) X10*3/uL Nucleated RBC % (auto) 0.0 (0.0-0.2) /100WBC Sodium 142 (135-145) mmol/L Potassium 3.4 (3.3-5.1) mmol/L Chloride 106 (96-108) mmol/L Carbon Dioxide 30 H (22-29) mmol/L Anion Gap 9 L (12-20) BUN 7 L (9-16) mg/dL Creatinine 0.85 (0.5-1.4) mg/dL Estim Creat Clear Calc 43.9 Estimated GFR > 60 Random Glucose 89 (60-115) mg/dL Calcium 9.0 (8.4-10.2) mg/dL Magnesium 1.8 (1.6-2.6) mg/dL Total Bilirubin 0.6 (0.0-1.0) mg/dL AST 44 H (5-31) U/L ALT 21 (0-31) U/L Alkaline Phosphatase 44 (39-117) U/L Troponin I High Sens 5.9 D (<3.5-17.0) ng/L Total Protein 7.0 (6.5-8.0) g/dL Albumin 4.5 (3.5-5.0) g/dL Discharge Plan Discharge Clinical Impression: Bigeminal rhythm Patient Disposition: Home, Self-Care Additional Instructions: Make sure to call primary office to set you up with an echocardiogram. If you have Chest pain or shortness of breath. Return to the ED. Prescriptions: No Action methadone [Methadone Intensol] 10 mg/mL concentrate 70 mg PO DAILY naloxone [Narcan] 4 mg/actuation spray,non-aerosol 4 mg intranasal Q3M PRN (Reason: opioid overdose) Qty: 2 2RF Rx Instructions: spray 1 dose into ONE nostril; alternate nostrils w each dose until help arrives [place] [facility] [place] [facility] [Provider Group] Print Language: Indonesian
[2025-09-23 16:25] VITALS: BP 169/65; PULSE 54; RESP 12; TEMP 36.9; O2SAT 98
[2025-09-23 16:29] LABS: MANUAL DIFF FLAG NO
[2025-09-23 16:31] LABS: Hematocrit 40.1 % (37.0-47.0); Hemoglobin 13.3 g/dl (12.0-16.0); Imm Gran Abs Auto 0.02 X10*3/uL (0.00-0.03); Imm Gran Pct Auto 0.3 % (0.0-0.4); Lymphocytes Absolute Auto 2.1 X10*3/uL (1.2-4.9); Mean Corpuscular HGB Conc 33.2 g/dl (31.0-35.0); Mean Corpuscular Hemoglobin 31.1 pg (27.0-33.0); Mean Corpuscular Volume 93.7 fL (80.0-98.0); NRBC Abs Auto 0.000 X10*3/uL (0.0-0.012); NRBC Pct Auto 0.0 /100WBC (0.0-0.2); Platelet Count 158 X10*3/uL (160-400); Red Blood Count 4.28 X10*6/uL (4.20-5.50); White Blood Count 6.9 X10*3/uL (4.8-10.8)
[2025-09-23 16:44] LABS: Alanine Aminotransferase 21 U/L (0-31); Albumin Level 4.5 g/dL (3.5-5.0); Alkaline Phosphatase 44 U/L (39-117); Anion Gap 9 (12-20); Aspartate Amino Transferase 44 U/L (5-31); Blood Urea Nitrogen 7 mg/dL (9-16); Calcium 9.0 mg/dL (8.4-10.2); Carbon Dioxide 30 mmol/L (22-29); Chloride 106 mmol/L (96-108); Creatinine Clr Calc Pharmacy 43.9; Estimated Glomerular Filt Rate > 60; Magnesium 1.8 mg/dL (1.6-2.6); Potassium 3.4 mmol/L (3.3-5.1); Sodium 142 mmol/L (135-145); Total Protein 7.0 g/dL (6.5-8.0)
[2025-09-23 16:51] LABS: Troponin-I High Sensitivity 5.9 ng/L (<3.5-17.0)
[2025-09-23 19:10] VITALS: BP 169/65; PULSE 54; RESP 12; TEMP 36.9; O2SAT 98
== END 2025-09-23 19:17 | disposition home or self-care (01) ==
PROVIDERS: Physician Assistant Medical; Emergency Provider Student in an Organized Health Care Education/Training Program; PCP Physician Assistant
DX: R00.8 Other abnormalities of heart beat (principal); R00.2 Palpitations; R00.1 Bradycardia, unspecified; F11.90 Opioid use, unspecified, uncomplicated
CPT/HCPCS: 36415; 80053; 83735; 84484; 85025; 93005; 99212; 99283

== ENCOUNTER → 2025-09-23 15:54 | Outpatient (BNV) | payer MEDICARE, SELFPAY | PROVIDERS: Emergency Provider Student in an Organized Health Care Education/Training Program; PCP Physician Assistant; Visit Provider Internal Medicine | DX: I44.7 Left bundle-branch block, unspecified (principal) | CPT/HCPCS: 93010 ==

== ENCOUNTER 2025-10-01 12:22 | Outpatient (AMB) | payer MEDICARE, SELFPAY ==
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
[2025-10-01 12:58] VITALS: BP 190/80; PULSE 67; RESP 20; TEMP 36.6; O2SAT 98; BMI 16.8
== END 2025-10-01 13:32 | disposition home or self-care (01) ==
LOC: HO.HMCHD 12:22
PROVIDERS: PCP Physician Assistant; Visit Provider Physician Assistant
DX: R00.1 Bradycardia, unspecified (principal); B19.20 Unspecified viral hepatitis C without hepatic coma; F41.1 Generalized anxiety disorder; F32.9 Major depressive disorder, single episode, unspecified; F11.90 Opioid use, unspecified, uncomplicated; T74.91XA Unspecified adult maltreatment, confirmed, initial encounter

== ENCOUNTER → 2025-10-01 12:22 | Outpatient (BNVA) | payer MEDICARE, SELFPAY | PROVIDERS: PCP Physician Assistant; Visit Provider Physician Assistant | DX: R00.1 Bradycardia, unspecified (principal); B19.20 Unspecified viral hepatitis C without hepatic coma; F41.1 Generalized anxiety disorder; F41.0 Panic disorder [episodic paroxysmal anxiety]; F32.9 Major depressive disorder, single episode, unspecified; T74.91XA Unspecified adult maltreatment, confirmed, initial encounter; F11.20 Opioid dependence, uncomplicated; I44.7 Left bundle-branch block, unspecified; I49.3 Ventricular premature depolarization; I49.8 Other specified cardiac arrhythmias; R74.8 Abnormal levels of other serum enzymes; G50.0 Trigeminal neuralgia; G62.9 Polyneuropathy, unspecified; Z87.891 Personal history of nicotine dependence | CPT/HCPCS: 99212 ==